=== PATIENT | male | born 1935 | race Hispanic/Latino ===

== ENCOUNTER 2017-02-25 09:54 | Emergency (ER) | payer OTHER ==
[~2017-02-25] VITALS: Ht 170.2 cm; Wt 76.7 kg
--- NOTE | 2017-02-25 11:39 | Diagnostic Imaging Report ---
PROCEDURE:C-SPINE COMPLETE COMPARISON:None. INDICATIONS:FALL, POSTERIOR NECK STIFFNESS FINDINGS: The lateral view is visualized from the skull base to C7. The patient status post anterior cervical discectomy and fusion from C3-C6. The hardware is intact without evidence of lucency surrounding the screws to suggest loosening. There is disc space narrowing and endplate ossific lipping of C6-7 and C7-T1. The vertebral bodies are well-aligned. There are no fractures, lytic or blastic lesions. No prevertebral soft tissue swelling. The C1/C2-odontoid interval is normal. There is mild facet arthropathy at C6-7. There is mild diffuse foraminal narrowing, most severe at C5-6 on the right and C6-7 on the left. The skull base and upper chest are unremarkable. CONCLUSION: C3-C6 ACDF without complication. No acute traumatic pathology. Degenerative changes as described above. Dictated by: Elaine Gómez M.D. on 02/25/2017 at 11:47 Electronically approved by: Elaine Gómez M.D. on 02/25/2017 at 11:47
--- NOTE | 2017-02-25 11:41 | Diagnostic Imaging Report ---
PROCEDURE:X-RAY LEFT SHOULDER, COMPLETE COMPARISON:None. INDICATIONS:FALL, LEFT SHOULDER PAIN FINDINGS: BONES: Normal mineralization of the visualized osseous structures. No acute fracture or dislocation. There are degenerative changes of the a.c. joint. No significant changes on the glenohumeral joint. SOFT TISSUES:Negative. OTHER:A calcified granuloma in the lateral left upper lobe measures 5 mm. The aorta is ectatic. No evidence of pleural thickening, effusion, or pneumothorax CONCLUSION: No acute traumatic pathology. Dictated by: Elaine Gómez M.D. on 02/25/2017 at 11:49 Electronically approved by: Elaine Gómez M.D. on 02/25/2017 at 11:49
[2017-02-25 13:56] VITALS: BP 166/87
== END 2017-02-25 14:07 | disposition home or self-care (01) ==
LOC: ER 09:54
DX: G89.11 Acute pain due to trauma (principal); M54.2 Cervicalgia; M25.512 Pain in left shoulder; W01.0XXA Fall on same level from slipping, tripping and stumbling without subsequent striking against object, initial encounter; Y92.008 Other place in unspecified non-institutional (private) residence as the place of occurrence of the external cause; I10 Essential (primary) hypertension
CPT/HCPCS: 72050; 99282

== ENCOUNTER 2017-04-19 09:44 | Emergency (ER) | payer OTHER ==
[~2017-04-19] VITALS: Ht 170.2 cm; Wt 74.4 kg
--- OUTSIDE RECORDS SUMMARY | 2017-04-19 09:47 | XMS REPORT | Clinical Summary ---
Author Author [facility] Address Unknown Phone Unavailable Care Team Providers Care Loss Prevention And Safety Manager Name Role Phone Reji Yanes MD PCP Allergies No Known Allergies Current Medications Prescription Sig. Disp. 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 Encounters Date Type Specialty Care Team Description 12/02/2016 Office Visit Otolaryngology Aamir Baca MD Vocal fold paralysis, right (Primary Dx); Hoarseness 11/02/2016 Office Visit Otolaryngology Aamir Baca MD Hoarseness (Primary Dx); Vocal fold paralysis, right after 04/18/2016 Social History Tobacco Use Types Packs/Day Years Used Date Never Smoker Alcohol Use Drinks/Week oz/Week Comments No Sex Assigned at Date Recorded Not on file Last Filed Vital Signs Vital Sign Reading Time Taken Blood Pressure 124/86 12/02/2016 10:49 AM CDT Pulse 83 12/02/2016 10:49 AM CDT Temperature - - Respiratory Rate - - Oxygen Saturation - - Inhaled Oxygen - - Concentration Weight 76.7 kg (169 lb) 12/02/2016 10:49 AM CDT Height 170.2 cm (5' 7") 12/02/2016 10:49 AM CDT Body Mass Index 26.47 12/02/2016 10:49 AM CDT Plan of Treatment Health Maintenance Due Date Last Done Comments ZOSTER VACCINE 1995 PNEUMOCOCCAL 2000 POLYSACCHARIDE VACCINE AGE 65 AND OVER PNEUMOCOCCAL-13 2000 INFLUENZA VACCINE 09/21/2016 Results Not on fileafter 04/18/2016 Insurance Payer Benefit Subscriber ID Type Phone Address Plan / Group [employer] xxxxxxxxx [facility] [place] [address]
--- OUTSIDE RECORDS SUMMARY | 2017-04-19 09:47 | XMS REPORT ---
Author Author [facility] Address Unknown Phone Unavailable Care Team Providers Care Passenger Screener Name Role Phone SHAE POND Unavailable Unavailable Problems This patient has no known problems. Allergies, Adverse Reactions, Alerts This patient has no known allergies or adverse reactions. Medications This patient has no known medications. Results Test Description Test Time Test Comments Text Results Atomic Results Result Comments CERVICAL SPINE 4 OR 5 VIEWS [place] [address] Patient Name: ARIAN BLANCAS MR #: [id number] : 1935 Age/Sex: 81/M Req #: [id number] Adm Physician: Ordered by: DEIDRE MERCADO [employer] AND WATCH HANDS DIPPER Report #: [id number] Location: ER Room/Bed: Procedure: [id number] DX/CERVICAL SPINE 4 OR 5 VIEWS Exam Date: 02/25/17 Exam Time: 1040 REPORT STATUS: Signed PROCEDURE: C-SPINE COMPLETE COMPARISON: None. INDICATIONS: FALL, POSTERIOR NECK STIFFNESS FINDINGS: The lateral view is visualized from the skull base to C7. The patient status post anterior cervical discectomy and fusion from C3-C6. The hardware is intact without evidence of lucency surrounding the screws to suggest loosening. There is disc space narrowing and endplate ossific lipping of C6-7 and C7-T1. The vertebral bodies are well-aligned. There are no fractures, lytic or blastic lesions. No prevertebral soft tissue swelling. The C1/C2-odontoid interval is normal. There is mild facet arthropathy at C6-7. There is mild diffuse foraminal narrowing, most severe at C5-6 on the right and C6-7 on the left. The skull base and upper chest are unremarkable. CONCLUSION: C3-C6 ACDF without complication. No acute traumatic pathology. Degenerative changes as described above. Dictated by: Alex Gómez M.D. on 02/25/2017 at 11:47 Electronically approved by: Alex Gómez M.D. on 02/25/2017 at 11:47 Dictated By: ALEX GÓMEZ MD [id number] COPY TO: DEIDRE MERCADO NP SHOULDER LEFT COMPLETE [place] [address] Patient Name: ARIAN BLANCAS MR #: [id number] : 1935 Age/Sex: 81/M Req #: [id number] Adm Physician: Ordered by: DEIDRE MERCADO [employer] DIPPER Report #: [id number] Location: ER Room/Bed: Procedure: [id number] DX/SHOULDER LEFT COMPLETE Exam Date: 02/25/17 Exam Time: 1040 REPORT STATUS: Signed PROCEDURE: X- RAY LEFT SHOULDER, COMPLETE COMPARISON: None. INDICATIONS: FALL , LEFT SHOULDER PAIN FINDINGS: BONES: Normal mineralization of the visualized osseous structures. No acute fracture or dislocation. There are degenerative changes of the a.c. joint. No significant changes on the glenohumeral joint. SOFT TISSUES: Negative. OTHER: A calcified granuloma in the lateral left upper lobe measures 5 mm. The aorta is ectatic. No evidence of pleural thickening, effusion, or pneumothorax CONCLUSION: No acute traumatic pathology. Dictated by: Alex Gómez M.D. on 02/25/2017 at 11:49 Electronically approved by: Alex Gómez M.D. on 02/25/2017 at 11:49 Dictated By: ALEX GÓMEZ MD 1149 COPY TO: DEIDRE MERCADO NP
[2017-04-19] MEDS ORDERED: TRAMADOL HCL 50 MG TAB PO ONE (10:00)
--- NOTE | 2017-04-19 11:16 | Diagnostic Imaging Report ---
PROCEDURE:HIP RIGHT 2-3 VW (+/- PELVIS) INDICATION:Pain COMPARISON:None. FINDINGS: No acute, displaced fracture or dislocation. Femoral heads project appropriately over the acetabulum. Moderate narrowing of the hip joint space with marginal acetabular osteophytosis. Sacroiliac joints are maintained. Degenerative disc changes of the lower lumbar spine. CONCLUSION: No acute osseous abnormality. 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 Dictated by: Mayur Maldonado M.D. on 04/19/2017 at 11:15 Electronically approved by: Mayur Maldonado M.D. on 04/19/2017 at 11:15
== END 2017-04-19 11:37 | disposition home or self-care (01) ==
LOC: ER 09:44
DX: M54.41 Lumbago with sciatica, right side (principal); I10 Essential (primary) hypertension
CPT/HCPCS: 99283

== ENCOUNTER 2018-01-13 09:17 | Inpatient (IN) | payer OTHER ==
[~2018-01-13] VITALS: Ht 167.6 cm; Wt 71.7 kg
--- OUTSIDE RECORDS SUMMARY | 2018-01-13 09:19 | XMS REPORT | Clinical Summary ---
Author Author [facility] Address Unknown Phone Unavailable Care Team Providers Care Manager Administrative Services Name Role Phone Miles Yanes MD PCP Allergies No Known Allergies Medications End Date Status Medication Sig Dispensed Refills Start Date Active lisinopril 0 (PRINIVIL,ZESTRIL) 40 mg 7 tablet Active pravastatin (PRAVACHOL) 0 20 MG tablet 7 Active finasteride (PROSCAR) 5 0 mg tablet 7 Active omeprazole (PriLOSEC) 40 0 MG capsule 7 Active sulfamethoxazole-trimetho 0 prim (BACTRIM SS) 400-80 7 mg per tablet Active Problems Problem Noted Date Hoarseness 11/02/2016 Vocal fold paralysis, 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 Last Filed Vital Signs Not on file Plan of Treatment Health Maintenance Due Date Last Done Comments SHINGRIX VACCINE (1 of 2) 1985 ZOSTER VACCINE 1995 PNEUMOCOCCAL 2000 POLYSACCHARIDE VACCINE AGE 65 AND OVER PNEUMOCOCCAL-13 2000 INFLUENZA VACCINE 09/21/2017 Results Not on fileafter 01/12/2017 Insurance Payer Benefit Subscriber ID Type Phone Address Plan / Group [employer] xxxxxxxxx [facility] Advance Directives Patient has advance care planning documents on file. For more information, ayleen e contact: Harish Capps [address] [place] [address]
--- NOTE | 2018-01-13 10:16 | Diagnostic Imaging Report ---
CT BRAIN WO HISTORY: Slurred speech, gait abnormality COMPARISON: None. TECHNIQUE: Noncontrast axial scans were obtained from skull base to the vertex. Coronal and sagittal reconstructions obtained from the axial data. One or more of the following dose reduction techniques were used: Automated exposure control, adjustment of the mA and/or kV according to patient size, and/or utilization of iterative reconstruction technique. DISCUSSION: Scalp/Skull: Unremarkable. Brain sulci: Mildly prominent. Ventricles: Mild compensatory dilatation. Extra-axial spaces: No masses or fluid collections. Carotid siphon and vertebral artery calcifications are present. Parenchyma: Small focal hypodensity in the left inferolateral thalamus may be due to age indeterminate ischemia. Mild periventricular white matter hypodensities are likely chronic microvascular ischemic changes. 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 Otherwise, no masses, hemorrhage, or large vascular territory acute infarct. Dural sinuses: No abnormal densities. Sellar/Suprasellar region: Intact. Skull base: Intact. Incidental findings: None. IMPRESSION: 1. Small focal hypodensity in the left inferolateral thalamus may be due to age indeterminate ischemia. 2. Otherwise, no acute intracranial abnormalities. 3. Mild supratentorial chronic microvascular ischemic change. Mild generalized cerebral volume loss. 4. 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 Signed by: Dr. Jovanny Waterman M.D. on 01/13/2018 10:12 AM
[2018-01-13 10:24] LABS: BASOPHILS % 0.5 % (0.0-1.0); EOSINOPHILS # (AUTO) 0.2 (0.0-0.4); EOSINOPHILS % 3.1 % (0.0-6.0); HEMATOCRIT 43.4 % (38.2-49.6); LYMPHOCYTES # (AUTO) 1.3 (1.0-3.2); LYMPHOCYTES % 23.7 % (18.0-39.1); MEAN CORPUSCULAR HEMOGLOBIN 30.8 pg (28-32); MEAN CORPUSCULAR HGB CONC 34.6 g/dL (31-35); MEAN CORPUSCULAR VOLUME 89.1 fL (81-99); MONOCYTES # (AUTO) 0.4 (0.2-0.8); MONOCYTES % 7.2 % (4.4-11.3); NEUTROPHILS # (AUTO) 3.6 (2.1-6.9); NEUTROPHILS % 65.3 % (38.7-80.0); PLATELET COUNT 123 x10e3/uL (140-360); RED BLOOD COUNT 4.87 x10e6/uL (4.3-5.7); RED CELL DISTRIBUTION WIDTH 12.8 % (11.7-14.4)
[2018-01-13 10:39] LABS: PROTHROMBIN TIME 14.1 seconds (11.9-14.5)
[2018-01-13 10:40] LABS: PARTIAL THROMBOPLASTIN TIME 33.8 seconds (23.8-35.5)
[2018-01-13 10:49] LABS: ALANINE AMINOTRANSFERASE 24 IU/L (0-55); ALBUMIN/GLOBULIN RATIO 1.1 (0.8-2.0); ALKALINE PHOSPHATASE 54 IU/L (40-150); ANION GAP 11.5 mmol/L (8-16); BLOOD UREA NITROGEN 10 mg/dL (7-26); BUN/CREATININE RATIO 14 (6-25); CALCIUM 9.7 mg/dL (8.4-10.2); CARBON DIOXIDE 25 mmol/L (22-29); CHLORIDE 108 mmol/L (98-107); CREATINE KINASE 355 IU/L (30-200); CREATININE, SERUM 0.73 mg/dL (0.72-1.25); EST GLOMERULAR FILTRATION RATE > 60 ML/MIN (60-); GLUCOSE 108 mg/dL (74-118); POTASSIUM 3.5 mmol/L (3.5-5.1); SODIUM 141 mmol/L (136-145)
[2018-01-13 11:12] LABS: CLARITY,URINE HAZY (CLEAR); COLOR,URINE YELLOW (YELLOW); LEUKOCYTE ESTERASE ,URINE NEGATIVE (NEGATIVE); NITRITE,URINE NEGATIVE (NEGATIVE); PROTEIN,URINE DIPSTICK NEGATIVE (NEGATIVE)
[2018-01-13 11:13] LABS: BILIRUBIN,URINE NEGATIVE (NEGATIVE); KETONES,URINE NEGATIVE (NEGATIVE); URINE UROBILINOGEN 0.2 mg/dL (0.2 - 1)
[2018-01-13] MEDS ORDERED: ASPIRIN 81 MG CHEW TAB PO ONE (11:15)
[2018-01-13] MEDS ORDERED: FAMOTIDINE 20 MG TAB PO SCH (11:15)
[2018-01-13 11:16] LABS: BACTERIA,URINE FEW /HPF; EPITHELIAL CELLS,URINE FEW /LPF; WBC,URINE (MAN) 0-5 /HPF (0-5)
--- OUTSIDE RECORDS SUMMARY | 2018-01-13 11:43 | XMS REPORT | Clinical Summary ---
Author Author [facility] Address Unknown Phone Unavailable Care Team Providers Care Communication Engineer Name Role Phone Miles Yanes MD PCP [...] Plan / Group [employer] xxxxxxxxx [facility] Advance Directives Patient has advance care planning documents on file. For more information, ayleen e contact: Harish Capps [address] [place] [address]
[2018-01-13] MEDS ORDERED: GADOBENATE DIMEGLUMINE 1 ML IV ONE (12:12)
[2018-01-13] MEDS ORDERED: SODIUM CHLORIDE 0.9% 50ML 50 ML ONE (12:12)
--- NOTE | 2018-01-13 12:13 | Diagnostic Imaging Report ---
EXAMINATION: CHEST SINGLE (PORTABLE) INDICATION: Chest pain. COMPARISON: None FINDINGS: TUBES and LINES: None. LUNGS: Lungs are well inflated. Lungs are clear. There is no evidence of pneumonia or pulmonary edema. PLEURA: No pleural effusion or pneumothorax. HEART AND MEDIASTINUM: The thoracic aorta is tortuous and folded. The cardiac silhouette is normal in size. BONES AND SOFT TISSUES: No acute osseous lesion. Lower cervical fusion hardware. UPPER ABDOMEN: No free air under the diaphragm. IMPRESSION: No acute thoracic abnormality. Signed by: Dr. Joyce Lu M.D. on 01/13/2018 12:10 PM
[2018-01-13] MEDS ORDERED: AMLODIPINE BESYLATE 10 MG TAB PO SCH (13:45)
[2018-01-13] MEDS ORDERED: CLONIDINE HCL 0.1 MG TAB PO PRN (13:45)
[2018-01-13 13:49] VITALS: BP 164/81
[2018-01-13 13:55] VITALS: BP 164/81
--- NOTE | 2018-01-13 14:07 | Diagnostic Imaging Report ---
MRI BRAIN WO HISTORY: Slurred speech, on balance COMPARISON: Head CT from earlier today TECHNIQUE: Sagittal T2, axial T2, axial T1, axial T2/FLAIR, axial gradient echo, axial GRE, coronal T2/FLAIR MR images of the brain were obtained without contrast. DISCUSSION: Scalp/bone marrow: Unremarkable. Brain sulci: Mildly prominent. Ventricles: Mild compensatory dilatation. Extra-axial spaces: No masses or fluid collections. Parenchyma: A focal area of diffusion restriction (bright on DWI, dark to isointense on ADC) is seen along the left inferolateral thalamus. This is compatible with acute ischemia. No other diffusion restricting abnormalities are seen. Scattered T2/FLAIR hyperintense foci throughout the supratentorial white matter are likely chronic microvascular ischemic changes. 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 Otherwise, no mass or hemorrhage. Vessels: Normal flow voids in major arteries and veins. Sellar/Suprasellar region: No abnormalities. Craniocervical junction: ACDF changes are partially visualized. Incidental findings: Nonspecific scattered T2 hyperintense paranasal sinus mucosal thickening is most prominent in the right Sinus. IMPRESSION: 1. Focal acute ischemia along the left inferolateral thalamus. 2. Mild supratentorial chronic microvascular ischemic change. Mild generalized cerebral volume loss. 3. 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 Signed by: Dr. Jovanny Waterman M.D. on 01/13/2018 2:04 PM
--- NOTE | 2018-01-13 14:45 | Diagnostic Imaging Report ---
MRA NECK WOW, MRA HEAD WO HISTORY: Slurred speech, on balance COMPARISON: Concurrent brain MRI, head CT from earlier today TECHNIQUE: Axial noncontrast 2D cervical, coronal contrast enhanced cervical, and noncontrast axial 3D intracranial [id number] MRA images were obtained without contrast. Maximum intensity projection and coronal/sagittal reformatted images were created. Any cervical carotid stenoses will be measured relative to the patent hughes vessel distal to the stenosis. 15 mL of MultiHance intravenous contrast were administered. FINDINGS: CERVICAL MRA: Focal susceptibility artifacts along the upper right visceral space and from the ACDF obscure some details. Right Carotid: No gross flow abnormalities. Left Carotid: No flow abnormalities. Right vertebral artery: No flow abnormalities. Left vertebral artery: No flow abnormalities. INTRACRANIAL MRA: Carotid arteries: No flow abnormalities in the intracranial internal carotid arteries. Normal A1 and M1 segments. Vertebrobasilar Circulation: Right vertebral artery: No flow abnormalities. Left vertebral artery: No flow abnormalities. Basilar artery: No flow abnormalities. Posterior cerebral arteries: No flow abnormalities. Normal Variants: ACom: Patent. PComs: Not visualized. Vertebral arteries: Left slightly dominant IMPRESSION: No cervical or intracranial MRA abnormalities. Signed by: Dr. Jovanny Waterman M.D. on 01/13/2018 2:41 PM
--- NOTE | 2018-01-13 14:45 | Diagnostic Imaging Report ---
MRA NECK WOW, MRA HEAD WO HISTORY: Slurred speech, on balance COMPARISON: Concurrent brain MRI, head CT from earlier today TECHNIQUE: Axial noncontrast 2D cervical, coronal contrast enhanced cervical, and noncontrast axial 3D intracranial [id number] MRA images were obtained without contrast. Maximum intensity projection and coronal/sagittal reformatted images were created. Any cervical carotid stenoses will be measured relative to the patent [place] vessel distal to the stenosis. 15 mL of MultiHance intravenous contrast were administered. FINDINGS: CERVICAL MRA: Focal susceptibility artifacts along the upper right visceral space and from the ACDF obscure some details. Right Carotid: No gross flow abnormalities. Left Carotid: No flow abnormalities. Right vertebral artery: No flow abnormalities. Left vertebral artery: No flow abnormalities. INTRACRANIAL MRA: Carotid arteries: No flow abnormalities in the intracranial internal carotid arteries. Normal A1 and M1 segments. Vertebrobasilar Circulation: Right vertebral artery: No flow abnormalities. Left vertebral artery: No flow abnormalities. Basilar artery: No flow abnormalities. Posterior cerebral arteries: No flow abnormalities. Normal Variants: ACom: Patent. PComs: Not visualized. Vertebral arteries: Left slightly dominant IMPRESSION: No cervical or intracranial MRA abnormalities. Signed by: Dr. Jovanny Waterman M.D. on 01/13/2018 2:41 PM
[2018-01-13] MEDS ORDERED: LISINOPRIL10 MG PO (15:33)
[2018-01-13] MEDS ORDERED: OMEPRAZOLE40 MG (15:33)
[2018-01-13] MEDS ORDERED: PRAVASTATIN SOD20 MG (15:33)
[2018-01-13] MEDS ORDERED: FINASTERIDE5 MG PO (15:33)
[2018-01-13] MEDS ORDERED: LATANOPROST2.5 ML OU (15:33)
[2018-01-13 16:00] VITALS: BP 162/89
[2018-01-13] MEDS ORDERED: PNEUMOCOCCAL VACCINE POLYVALENT 23 MCG/0.5 ML VIAL IM SCH (16:15)
[2018-01-13] MEDS ORDERED: INFLUENZA VIRUS VAC SPLIT INJ 0.5 ML SYR IM SCH (16:15)
[2018-01-13] MEDS ORDERED: ENOXAPARIN SOD INJ 40 MG/0.4 ML SYR SC SCH (17:00)
--- NOTE | 2018-01-13 17:11 | Consultation ---
DATE OF CONSULTATION: January 13, 2018 NEUROLOGY CONSULTATION HISTORY OF PRESENT ILLNESS: Mr. Do is an 82-year-old, [id number] man with past medical history significant for hypertension, hyperlipidemia, and a prior stroke in 2008 without residual deficits, admitted to [facility] on January 13, 2018, with symptoms suspicious for a stroke. On the evening of January 12, 2018, the patient noted the abrupt onset of dysarthria, expressive aphasia, possible weakness or incoordination of the right hand, gait impairment, and dizziness, which is further described as lightheadedness. Mr. Do does not report a visual field cut or other disturbance, numbness or tingling, or confusion. When the patient's symptoms persisted into the next day (the day of admission), Mr. Do proceeded to the Emergency Center at [facility] for further evaluation of his symptoms. Upon arrival in the Emergency Center, the patient was afebrile with a blood pressure 191/111 mmHg and pulse of 80 beats per minute. His neurological examination was documented as demonstrating dysarthria and an abnormal finger-nose test. While in the Emergency Center, a CT of the brain without contrast was performed. This study revealed age-indeterminate ischemia in the left inferolateral thalamus. Therefore, Mr. Do was admitted to [facility] as an inpatient for further evaluation and treatment. As stated above, the patient does report experiencing a prior stroke in 2008. He has no residual deficits from the stroke. At present, Mr. Do is not on daily antiplatelet or anticoagulant medication. REVIEW OF SYSTEMS: Blurred vision, dysarthria, expressive aphasia, weakness or incoordination of the right hand and arm, impairment of balance and gait, dizziness which is further described as lightheadedness. Otherwise, a 12-point review of systems is negative. PAST MEDICAL HISTORY: Hypertension, hyperlipidemia, gastroesophageal reflux disease, prior stroke in 2008 without residual deficits, benign prostatic hypertrophy. PAST SURGICAL HISTORY: Cervical spine surgery, appendectomy, procedure on the urethra. PAST HOSPITALIZATIONS: Surgeries/procedures as listed, stroke. FAMILY MEDICAL HISTORY: The patient's paternal and maternal grandparents are . Their medical histories are unknown. The patient's father is from alcoholic cirrhosis. Mr. Do's mother is from GI cancer. The patient had 3 brothers, one of whom is from alcoholic cirrhosis. The second brother is alive but has heart disease. The 3rd brother is alive and is healthy. Mr. Do has 3 children, 1 son and 2 daughters, all of whom are living. The son has diabetes mellitus. Both daughters are healthy. SOCIAL HISTORY: Mr. Do is . He is retired. The patient reports a remote history of tobacco use, but quit smoking cigarettes "a long time ago." Mr. Do quit drinking alcohol 40 years ago. He does not report current or prior recreational drug use. HOME MEDICATIONS 1. Lisinopril 40 mg by mouth daily. 2. Pravastatin 20 mg by mouth at bedtime daily. 3. Omeprazole 40 mg by mouth daily. 4. Finasteride 5 mg by mouth daily. 5. Latanoprost 2.5 mL 1 drop each eye at bedtime. ALLERGIES: NO KNOWN DRUG ALLERGIES. NO KNOWN FOOD ALLERGIES. NO KNOWN ALLERGY TO LATEX. NO KNOWN ALLERGIES TO IODINE OR OTHER CONTRAST MATERIALS. PHYSICAL EXAMINATION VITAL SIGNS: Height 67 inches, weight 163 pounds. BMI 25.5 kg per meter squared. Blood pressure 157/97 mmHg. Pulse 68 beats per minute. Respiratory rate 18 breaths per minute. Oxygen saturation 97% on room air. GENERAL: Patient is awake and alert, does not appear distressed. HEENT: Normocephalic and atraumatic. Pupils are equal, round, and reactive to light. Moist mucous membranes. NECK: Supple. No appreciable thyromegaly. No appreciable carotid bruits. CARDIOVASCULAR: S1 and S2, regular rate and rhythm. No murmurs, rubs, or gallops. RESPIRATORY: Clear to auscultation bilaterally. No wheezes, rhonchi or rales. EXTREMITIES: The skin is warm and dry. No clubbing, cyanosis, or edema. The posterior tibial and dorsalis pedis pulses are 1+ and symmetric. SKIN: No rashes or lesions. NEUROLOGIC EXAMINATION MEMORY/ATTENTION: The patient is awake and alert. Oriented to person, place, time, and situation. CRANIAL NERVES: Cranial nerve I: Not tested. Cranial nerves II, III, IV, and : Pupils are equal and round, react briskly to light (from3 mm to 2 mm). Extraocular movements intact. No nystagmus. Cranial nerve V: Sensation to light touch and pinprick is intact in the bilateral V1 through V3 distributions. Strength of the temporalis and masseter muscles is within normal limits. Cranial nerve VII: The face is symmetric as are all facial movements. Strength is within normal limits. Cranial nerve VIII: Hearing is intact to finger rub bilaterally. Cranial nerves IX and X: The soft palate elevates equally and symmetrically. Cranial nerve XI: Normal strength of the bilateral sternocleidomastoid and trapezius muscles. Cranial nerve XII: The tongue protrudes midline and moves symmetrically from side to side. STRENGTH: Bulk is normal. Strength is 5/5 in the bilateral deltoids, biceps, triceps, wrist flexors and extensors, finger flexors and extensors, intrinsic hand muscles, hip flexors, knee flexors and extensors, ankle dorsiflexion and plantar flexion, and intrinsic foot muscles. Tone is normal. DTRs: Deep tendon reflexes are 2+ and symmetric at the triceps, biceps, brachioradialis, and patellas. Deep tendon reflexes are absent and symmetric at the Achilles. Plantar responses are flexor bilaterally. SENSATION: Sensation is intact to light touch and pinprick in both arms and both legs. CEREBELLAR: There is dysmetria with cbcvbc-dkcg-zolmgc movements of the right arm, more than is expected for the degree of paresis. Cncuic-lndc-xrxawh movements are intact in the left arm. Heel-dodd movements are intact in both legs. GAIT: Deferred. SPEECH: Spontaneous speech is mildly dysarthric with mild expressive aphasia. Repetition is intact. INVOLUNTARY MOVEMENTS: None. PRONATOR DRIFT: Subtle in the right arm. LABORATORY DATA: The patient's comprehensive metabolic panel is significant for an elevated chloride of 108, an elevated creatine kinase of 355, and a mildly elevated globulin of 3.6. Other than the elevated creatine kinase, cardiac enzymes are negative times 1. The CBC with differential and platelets reveals a white blood cell count of 5.53 with a normal differential. The hemoglobin and hematocrit are 15.0 and 43.4, respectively. Platelet count is 123. PT, PTT, and INR are within normal limits. A urinalysis reveals a specific gravity of 1.005, with 1+ blood, and 6 to 10 red blood cells. DIAGNOSTIC STUDIES 1. Electrocardiogram, 01/13/2018: Sinus rhythm at 67 beats per minute with occasional premature ventricular complexes. 2. CT of the brain without contrast, 01/13/2018: There is a small, age-indeterminant, ischemic infarct in the left inferolateral thalamus. There is a remote infarct in the right striatocapsular region. There is diffuse cerebral atrophy with compensatory dilatation of the ventricles, appropriate for age. There are findings compatible with mild to moderate chronic small vessel ischemic disease. 3. Chest x-ray, 01/13/2018: No acute thoracic abnormality. 4. MRI of the brain without contrast, 01/13/2018: Acute ischemic stroke in the left inferolateral thalamus. Remote lacunar stroke in the right striatocapsular region. There is diffuse cerebral atrophy with compensatory dilatation of the ventricles, expected for the patient's age. There are scattered nonspecific T2/FLAIR hyperintense foci throughout the supratentorial white matter compatible with mild chronic small vessel ischemic disease. 5. MRA of the brain and neck without contrast, 01/13/2018: There is no significant stenosis in either the intra- or extracranial blood vessels. 6. Echocardiogram, 01/13/2018: Ejection fraction 60%. Concentric left ventricular hypertrophy. Trace mitral and tricuspid regurgitation. ASSESSMENT AND PLAN: Mr. Do is an 82-year-old right-hand dominant man with past medical history as detailed, admitted to [facility] on January 13, 2018, with an acute ischemic stroke of the left inferolateral thalamus. On neurological examination, the patient has dysarthric speech with mild expressive aphasia, subtle pronator drift in the right arm, and dysmetria with hhfdhh-gtkd-xcqtav movements of the right arm, more than expected for the degree of paresis. Patient's laboratory data and other diagnostic studies have been reviewed and are documented above. RECOMMENDATIONS 1. A lipid panel and hemoglobin A1c will be ordered. 2. Treatment with aspirin 325 mg by mouth daily will be continued for stroke prophylaxis. 3. Allow permissive hypertension for 24 to 48 hours following a stroke. The blood pressures may be gradually normalized beginning on Sunday, January 14, 2018. 4. The patient's goal total cholesterol is less than 200 with an LDL of less than 70. Follow up the results of the lipid panel. Continue treatment with simvastatin. 5. The patient's goal hemoglobin A1c is less than 7.0. Follow up the results of the hemoglobin A1c. Tight glycemic control is recommended while the patient is in the hospital. 6. Speech and physical therapy evaluations have been ordered. 7. GI prophylaxis with Pepcid 20 mg by mouth twice daily with meals. DVT prophylaxis with Lovenox 40 mg subcutaneously daily. 8. Defer treatment of the remaining medical comorbidities to the primary and other services following the patient. Thank you for this consultation. I will continue to follow the patient while he remains in the hospital. Time spent: 70 minutes. Job#: [id number] JONNY CLAROS
[2018-01-13 17:57] LABS: CREATINE KINASE MB 3.7 ng/mL (0-5.0)
[2018-01-13 20:00] VITALS: BP_SYST 140; BP_DIAS 80; BP_DIAS 82
[2018-01-13] MEDS ORDERED: SIMVASTATIN 40 MG TAB PO SCH (21:00)
[2018-01-13] MEDS ORDERED: LATANOPROST(OPTH) 2.5 ML BTL OU SCH (21:00)
[2018-01-14] VITALS: BP 133/74
[2018-01-14 01:20] LABS: CREATINE KINASE MB 2.7 ng/mL (0-5.0)
[2018-01-14 04:00] VITALS: BP 123/72
[2018-01-14 06:06] LABS: BASOPHILS % 0.4 % (0.0-1.0); EOSINOPHILS # (AUTO) 0.3 (0.0-0.4); EOSINOPHILS % 3.9 % (0.0-6.0); HEMATOCRIT 41.6 % (38.2-49.6); HEMOGLOBIN 14.4 g/dL (14.0-18.0); LYMPHOCYTES # (AUTO) 1.6 (1.0-3.2); LYMPHOCYTES % 23.8 % (18.0-39.1); MEAN CORPUSCULAR HGB CONC 34.6 g/dL (31-35); MEAN CORPUSCULAR VOLUME 89.7 fL (81-99); MONOCYTES # (AUTO) 0.6 (0.2-0.8); MONOCYTES % 9.3 % (4.4-11.3); NEUTROPHILS # (AUTO) 4.3 (2.1-6.9); NEUTROPHILS % 62.2 % (38.7-80.0); PLATELET COUNT 112 x10e3/uL (140-360); RED BLOOD COUNT 4.64 x10e6/uL (4.3-5.7)
[2018-01-14 06:24] LABS: ANION GAP 10.7 mmol/L (8-16); BLOOD UREA NITROGEN 12 mg/dL (7-26); BUN/CREATININE RATIO 16 (6-25); CALCIUM 9.4 mg/dL (8.4-10.2); CARBON DIOXIDE 26 mmol/L (22-29); CHLORIDE 105 mmol/L (98-107); CHOL/HDL RATIO 4.7 (3.9-4.7); CHOLESTEROL 177 MD/DL (0-199); CREATININE, SERUM 0.74 mg/dL (0.72-1.25); EST GLOMERULAR FILTRATION RATE > 60 ML/MIN (60-); GLUCOSE 106 mg/dL (74-118); HDL CHOLESTEROL 38 MG/DL (40-60); LDL CHOLESTEROL 88 MG/DL (60-130); POTASSIUM 3.7 mmol/L (3.5-5.1); SODIUM 138 mmol/L (136-145); TRIGLYCERIDES 255 MG/DL (0-149)
[2018-01-14 06:47] LABS: THYROID STIMULATING HORMONE 2.234 uIU/mL (0.350-4.940)
[2018-01-14] MEDS ORDERED: ASPIRIN ENTERI325 MG PO (07:38)
[2018-01-14] MEDS ORDERED: CATAPRES0.1 MG PO (07:38)
[2018-01-14] MEDS ORDERED: SIMVASTATIN40 MG PO (07:38)
[2018-01-14] MEDS ORDERED: AMLODIPINE BESY10 MG PO (07:38)
[2018-01-14 08:00] VITALS: BP 153/84
[2018-01-14] MEDS ORDERED: PANTOPRAZOLE SOD 40 MG TABEC PO SCH (09:00)
[2018-01-14] MEDS ORDERED: ACETAMINOPHEN/CODEINE 300MG - 30MG TAB PO PRN (09:00)
[2018-01-14] MEDS ORDERED: FINASTERIDE 5 MG TAB PO SCH (09:00)
[2018-01-14] MEDS ORDERED: ASPIRIN 325 MG TAB EC PO SCH (09:00)
[2018-01-14] MEDS ORDERED: LISINOPRIL 20 MG TAB PO SCH (10:00)
[2018-01-14 12:00] VITALS: BP 149/98
--- NOTE | 2018-01-15 04:00 | Discharge Summary ---
ADMISSION DIAGNOSES 1. Chest pain, rule out acute coronary syndrome. 2. Acute cerebrovascular accident. 3. Hypertension. DISCHARGE DIAGNOSES 1. Chest pain, rule out acute coronary syndrome. 2. Acute cerebrovascular accident. 3. Hypertension. 4. Glaucoma. 5. Benign prostatic hypertrophy. 6. Gastroesophageal reflux disease. SURGICAL HISTORY: Neck surgery. FAMILY HISTORY: Noncontributory. SOCIAL HISTORY: Noncontributory. HOSPITAL COURSE: An 82-year-old male with 24 hours of slurred speech, right hand weakness, and ambulatory dysfunction. On admission, patient started on aspirin and statin. Serial cardiac enzymes were negative x3. CT of the brain showed small focal hypodensity in the left inferolateral thalamus, old right striatocapsular lacunar infarct. MRI of the neck and head showed no cervical or intracranial MRA abnormalities. Chest x-ray showed no acute thoracic abnormality. MRI of the brain showed focal acute ischemia along the left inferolateral thalamus, mild supratentorial chronic microvascular ischemic changes. Neurology was consulted who has cleared the patient for discharge on aspirin, simvastatin, and lisinopril. The patient was instructed to keep a log of his blood pressure readings and follow up with primary care. He was cleared for speech therapy and physical therapy recommended a walker. Case management was consulted for any physical therapy recommendations. Patient was discharged home with family. Patient understands discharge instructions and agrees to plan. Vital signs stable. Patient afebrile. Dictated by: Jacy Mckeon NP Job#: [id number] LPA
== END 2018-01-14 13:45 | disposition home or self-care (01) | DRG 66 ==
LOC: ER 09:17 → ERHOLD 11:39 → MED/SURG 12:41 → OBSVTOIN 01-14 09:14
PROVIDERS: ADMIT Internal Medicine; ATTEND Internal Medicine
DX: I63.89 Other cerebral infarction (principal); R07.9 Chest pain, unspecified; I10 Essential (primary) hypertension; H40.9 Unspecified glaucoma; N40.0 Benign prostatic hyperplasia without lower urinary tract symptoms; K21.9 Gastro-esophageal reflux disease without esophagitis; R42 Dizziness and giddiness; E78.5 Hyperlipidemia, unspecified; Z86.73 Personal history of transient ischemic attack (TIA), and cerebral infarction without residual deficits; R47.1 Dysarthria and anarthria; R47.01 Aphasia; R27.8 Other lack of coordination; G83.21 Monoplegia of upper limb affecting right dominant side
CPT/HCPCS: 36415; 70450; 70544; 70549; 70551; 71045; 80048; 80053; 80061; 81001; 82550; 82553; 83036; 84439; 84443; 84484; 85025; 85610; 85730; 90732; 92523; 93005; 93306; 99284; G0009; G0378; J1650

== ENCOUNTER 2018-09-26 10:31 | Emergency (ER) | payer MEDICARE, OTHER ==
[~2018-09-26] VITALS: Ht 167.6 cm; Wt 71.7 kg
[~2018-09-26 10:31] MED LIST: AMLODIPINE BESY10 MG PO; ASPIRIN ENTERI325 MG PO; CATAPRES0.1 MG PO; FINASTERIDE5 MG PO; LATANOPROST2.5 ML OU; LISINOPRIL10 MG PO; OMEPRAZOLE40 MG; PRAVASTATIN SOD20 MG; SIMVASTATIN40 MG PO
--- OUTSIDE RECORDS SUMMARY | 2018-09-26 10:34 | XMS REPORT | Clinical Summary ---
Author Author [facility] Organization [facility] Address Unknown Phone Unavailable Care Team Providers Care Reconditioner Name Role Phone Miles Yanes MD PCP [...] Health Maintenance Due Date Last Done Comments SHINGLES VACCINES (#1) 1985 65+ PNEUMOCOCCAL VACCINE 2000 (1 of 2 - PCV13) INFLUENZA VACCINE 09/21/2018 Results Not on fileafter 09/25/2017 Insurance Type Payer Benefit Subscriber ID Effective Phone Address Plan / Dates Group HMO [employer] TEX[employer] xxxxxxxxx 2016-P BRITANY faulkner Advance Directives Patient has advance care planning documents on file. For more information, ayleen e contact: Harish Capps [address] [place] [address]
[2018-09-26] MEDS ORDERED: SODIUM CHLORIDE 0.9% 1000ML 1,000 ML IV STA (10:55)
[2018-09-26] MEDS ORDERED: ONDANSETRON HCL INJ 2MG/ML 2ML 2 MG/ML VIAL IV NR (11:00)
[2018-09-26] MEDS ORDERED: DICYCLOMINE HCL 10 MG CAP PO SCH (11:15)
[2018-09-26 12:04] LABS: BASOPHILS % 0.2 % (0.0-1.0); EOSINOPHILS # (AUTO) 0.1 (0.0-0.4); EOSINOPHILS % 2.5 % (0.0-6.0); HEMATOCRIT 41.2 % (38.2-49.6); LYMPHOCYTES # (AUTO) 0.7 (1.0-3.2); LYMPHOCYTES % 16.6 % (18.0-39.1); MEAN CORPUSCULAR HEMOGLOBIN 30.8 pg (28-32); MEAN CORPUSCULAR VOLUME 90.7 fL (81-99); MONOCYTES # (AUTO) 0.4 (0.2-0.8); NEUTROPHILS # (AUTO) 3.2 (2.1-6.9); NEUTROPHILS % 72.5 % (38.7-80.0); PLATELET COUNT 114 x10e3/uL (140-360); RED BLOOD COUNT 4.54 x10e6/uL (4.3-5.7); RED CELL DISTRIBUTION WIDTH 13.2 % (11.7-14.4)
[2018-09-26 12:05] LABS: BILIRUBIN,URINE NEGATIVE (NEGATIVE); CLARITY,URINE CLEAR (CLEAR); COLOR,URINE YELLOW (YELLOW); KETONES,URINE TRACE (NEGATIVE); LEUKOCYTE ESTERASE ,URINE NEGATIVE (NEGATIVE); NITRITE,URINE NEGATIVE (NEGATIVE); PROTEIN,URINE DIPSTICK NEGATIVE (NEGATIVE); URINE UROBILINOGEN 0.2 mg/dL (0.2 - 1)
[2018-09-26 12:15] LABS: INR 1.1; PROTHROMBIN TIME 14.7 seconds (11.9-14.5)
[2018-09-26 12:16] LABS: PARTIAL THROMBOPLASTIN TIME 35.6 seconds (23.8-35.5)
[2018-09-26 12:29] LABS: ALANINE AMINOTRANSFERASE 24 IU/L (0-55); ALBUMIN 3.8 g/dL (3.5-5.0); ALBUMIN/GLOBULIN RATIO 1.1 (0.8-2.0); ALKALINE PHOSPHATASE 50 IU/L (40-150); AMYLASE 57 U/L (25-125); ANION GAP 14.7 mmol/L (8-16); BLOOD UREA NITROGEN 10 mg/dL (7-26); BUN/CREATININE RATIO 13 (6-25); CALCIUM 9.2 mg/dL (8.4-10.2); CARBON DIOXIDE 22 mmol/L (22-29); CHLORIDE 107 mmol/L (98-107); CREATINE KINASE 148 IU/L (30-200); CREATININE, SERUM 0.78 mg/dL (0.72-1.25); EST GLOMERULAR FILTRATION RATE > 60 ML/MIN (60-); GLUCOSE 87 mg/dL (74-118); LIPASE 27 U/L (8-78); POTASSIUM 3.7 mmol/L (3.5-5.1); SODIUM 140 mmol/L (136-145)
[2018-09-26 12:30] LABS: AMORPHOUS SEDIMENT,URINE MODERATE (FEW); BACTERIA,URINE MANY /HPF; EPITHELIAL CELLS,URINE MODERATE /LPF; RBC,URINE 0-5 /HPF (0-5)
--- NOTE | 2018-09-26 12:49 | NUR ---
PATIENT TO ROOM 7
--- NOTE | 2018-09-26 13:29 | Diagnostic Imaging Report ---
EXAMINATION: CHEST 2 VIEWS INDICATION: Weakness COMPARISON: Chest radiograph of 01/13/2018 FINDINGS: LINES/TUBES:None LUNGS:The lungs are well-inflated. No focal consolidation or pulmonary edema. PLEURA:No pleural effusion or pneumothorax. MEDIASTINUM:The cardiomediastinal silhouette appears normal in size and shape. Atherosclerotic calcifications of the tortuous thoracic aorta. BONES/SOFT TISSUES:No acute osseous injury. ABDOMEN:No free air under the diaphragm. IMPRESSION: No focal pneumonia or pulmonary edema. Signed by: Dayana Rudolph MD on 09/26/2018 1:26 PM
== END 2018-09-26 15:02 | disposition home or self-care (01) ==
LOC: ER 10:31
DX: R11.14 Bilious vomiting (principal); R11.2 Nausea with vomiting, unspecified; R63.0 Anorexia; I10 Essential (primary) hypertension; K21.9 Gastro-esophageal reflux disease without esophagitis; E78.5 Hyperlipidemia, unspecified; Z86.73 Personal history of transient ischemic attack (TIA), and cerebral infarction without residual deficits; R10.84 Generalized abdominal pain; R19.7 Diarrhea, unspecified
CPT/HCPCS: 36415; 71046; 80053; 81001; 82150; 82550; 82553; 83690; 84484; 85025; 85610; 85730; 87086; 87400; 93005; 99284; J2405; J7030

== ENCOUNTER 2018-09-27 08:44 | Emergency (ER) | payer OTHER ==
[~2018-09-27] VITALS: Ht 167.6 cm; Wt 71.7 kg
--- OUTSIDE RECORDS SUMMARY | 2018-09-27 08:46 | XMS REPORT | Clinical Summary ---
Author Author [facility] Organization [facility] Address Unknown Phone Unavailable Care Team Providers Care Associate Financial Planner Name Role Phone Miles Yanes MD PCP [...] INFLUENZA VACCINE 09/21/2018 Results Not on fileafter 09/26/2017 Insurance Type Payer Benefit Subscriber ID Effective Phone Address Plan / Dates Group HMO [employer] xxxxxxxxx 2016-P BRITANY faulkner Advance Directives Patient has advance care planning documents on file. For more information, ayleen e contact: Harish Capps [address] [place] [address]
[2018-09-27] MEDS ORDERED: SODIUM CHLORIDE 0.9% 1000ML 1,000 ML IV STA ×2 (09:09)
[2018-09-27 09:38] LABS: BASOPHILS % 0.3 % (0.0-1.0); BILIRUBIN,URINE NEGATIVE (NEGATIVE); CLARITY,URINE SL CLOUDY (CLEAR); COLOR,URINE YELLOW (YELLOW); EOSINOPHILS # (AUTO) 0.2 (0.0-0.4); EOSINOPHILS % 4.1 % (0.0-6.0); HEMOGLOBIN 13.2 g/dL (14.0-18.0); KETONES,URINE NEGATIVE (NEGATIVE); LEUKOCYTE ESTERASE ,URINE NEGATIVE (NEGATIVE); LYMPHOCYTES # (AUTO) 1.1 (1.0-3.2); LYMPHOCYTES % 18.6 % (18.0-39.1); MEAN CORPUSCULAR HEMOGLOBIN 30.7 pg (28-32); MEAN CORPUSCULAR HGB CONC 33.8 g/dL (31-35); MEAN CORPUSCULAR VOLUME 90.7 fL (81-99); MONOCYTES # (AUTO) 0.7 (0.2-0.8); MONOCYTES % 11.4 % (4.4-11.3); NEUTROPHILS # (AUTO) 3.8 (2.1-6.9); NEUTROPHILS % 65.1 % (38.7-80.0); NITRITE,URINE NEGATIVE (NEGATIVE); PLATELET COUNT 115 x10e3/uL (140-360); PROTEIN,URINE DIPSTICK NEGATIVE (NEGATIVE); RED CELL DISTRIBUTION WIDTH 13.2 % (11.7-14.4); URINE UROBILINOGEN 0.2 mg/dL (0.2 - 1)
[2018-09-27 09:51] LABS: ALANINE AMINOTRANSFERASE 31 IU/L (0-55); ALBUMIN 3.5 g/dL (3.5-5.0); ALBUMIN/GLOBULIN RATIO 1.1 (0.8-2.0); ALKALINE PHOSPHATASE 44 IU/L (40-150); ANION GAP 12.7 mmol/L (8-16); BLOOD UREA NITROGEN 11 mg/dL (7-26); BUN/CREATININE RATIO 14 (6-25); CALCIUM 8.9 mg/dL (8.4-10.2); CARBON DIOXIDE 20 mmol/L (22-29); CHLORIDE 111 mmol/L (98-107); CREATININE, SERUM 0.76 mg/dL (0.72-1.25); EST GLOMERULAR FILTRATION RATE > 60 ML/MIN (60-); GLUCOSE 89 mg/dL (74-118); POTASSIUM 3.7 mmol/L (3.5-5.1); SODIUM 140 mmol/L (136-145)
[2018-09-27 09:54] LABS: BACTERIA,URINE MODERATE /HPF; EPITHELIAL CELLS,URINE MODERATE /LPF; MUCUS,URINE MODERATE (RARE); RBC,URINE 0-5 /HPF (0-5)
[2018-09-27 09:55] LABS: HYALINE CASTS 0-1 (0-1)
[2018-09-27 09:58] LABS: BAND NEUTROPHILS % (MANUAL) 7 %; EOSINOPHILS % (MANUAL) 1 % (0-7); LYMPHOCYTES % (MANUAL) 12 % (19-48); MAGNESIUM 2.2 MG/DL (1.3-2.1); MONOCYTES % (MANUAL) 7 % (3.4-9.0); NEUTROPHILS % (MANUAL) 73 % (40-74)
[2018-09-27 09:59] LABS: PLATELET ESTIMATE SLIGHTLY DECREASED; PLATELET MORPHOLOGY COMMENT NORMAL; RBC MORPHOLOGY COMMENT NORMAL
== END 2018-09-27 10:49 | disposition home or self-care (01) ==
LOC: ER 08:44
DX: R19.7 Diarrhea, unspecified (principal); E86.0 Dehydration; I10 Essential (primary) hypertension; K21.9 Gastro-esophageal reflux disease without esophagitis; E78.5 Hyperlipidemia, unspecified; N40.0 Benign prostatic hyperplasia without lower urinary tract symptoms; Z86.73 Personal history of transient ischemic attack (TIA), and cerebral infarction without residual deficits; Z79.82 Long term (current) use of aspirin
CPT/HCPCS: 36415; 80053; 81001; 83735; 85025; 87086; 99283; J7030

== ENCOUNTER 2018-11-13 12:09 | Emergency (ER) | payer OTHER ==
[~2018-11-13] VITALS: Ht 167.6 cm; Wt 71.7 kg
--- OUTSIDE RECORDS SUMMARY | 2018-11-13 12:12 | XMS REPORT | Clinical Summary ---
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
[2018-11-13] MEDS ORDERED: SODIUM CHLORIDE 0.9% 1000ML 1,000 ML IV STA (12:35)
[2018-11-13] MEDS ORDERED: ONDANSETRON HCL INJ 2MG/ML 2ML 2 MG/ML VIAL IV STA (12:35)
[2018-11-13 14:00] LABS: BILIRUBIN,URINE NEGATIVE (NEGATIVE); CLARITY,URINE SL CLOUDY (CLEAR); COLOR,URINE YELLOW (YELLOW); KETONES,URINE NEGATIVE (NEGATIVE); LEUKOCYTE ESTERASE ,URINE NEGATIVE (NEGATIVE); NITRITE,URINE NEGATIVE (NEGATIVE); PROTEIN,URINE DIPSTICK NEGATIVE (NEGATIVE); URINE UROBILINOGEN 0.2 mg/dL (0.2 - 1)
[2018-11-13 14:01] LABS: BASOPHILS % 0.4 % (0.0-1.0); EOSINOPHILS # (AUTO) 0.2 (0.0-0.4); EOSINOPHILS % 3.2 % (0.0-6.0); HEMATOCRIT 44.1 % (38.2-49.6); HEMOGLOBIN 14.3 g/dL (14.0-18.0); LYMPHOCYTES # (AUTO) 1.6 (1.0-3.2); LYMPHOCYTES % 28.4 % (18.0-39.1); MEAN CORPUSCULAR HEMOGLOBIN 29.9 pg (28-32); MEAN CORPUSCULAR HGB CONC 32.4 g/dL (31-35); MEAN CORPUSCULAR VOLUME 92.3 fL (81-99); MONOCYTES # (AUTO) 0.4 (0.2-0.8); MONOCYTES % 7.5 % (4.4-11.3); NEUTROPHILS # (AUTO) 3.4 (2.1-6.9); NEUTROPHILS % 60.3 % (38.7-80.0); PLATELET COUNT 129 x10e3/uL (140-360); RED BLOOD COUNT 4.78 x10e6/uL (4.3-5.7); RED CELL DISTRIBUTION WIDTH 12.8 % (11.7-14.4)
[2018-11-13 14:10] LABS: INR 1.04; PROTHROMBIN TIME 14.1 seconds (11.9-14.5)
[2018-11-13 14:11] LABS: PARTIAL THROMBOPLASTIN TIME 36.2 seconds (23.8-35.5)
[2018-11-13 14:15] LABS: BACTERIA,URINE FEW /HPF; CALCIUM OXALATE CRYSTALS,UR FEW (FEW); EPITHELIAL CELLS,URINE MODERATE /LPF; WBC,URINE (MAN) 0-5 /HPF (0-5)
[2018-11-13 14:17] LABS: ALANINE AMINOTRANSFERASE 36 IU/L (0-55); ALBUMIN 3.8 g/dL (3.5-5.0); ALKALINE PHOSPHATASE 72 IU/L (40-150); ANION GAP 11.7 mmol/L (8-16); BLOOD UREA NITROGEN 8 mg/dL (7-26); BUN/CREATININE RATIO 9 (6-25); CARBON DIOXIDE 27 mmol/L (22-29); CHLORIDE 104 mmol/L (98-107); CREATINE KINASE 110 IU/L (30-200); CREATININE, SERUM 0.86 mg/dL (0.72-1.25); EST GLOMERULAR FILTRATION RATE > 60 ML/MIN (60-); GLUCOSE 98 mg/dL (74-118); POTASSIUM 3.7 mmol/L (3.5-5.1); SODIUM 139 mmol/L (136-145)
--- NOTE | 2018-11-13 14:23 | Diagnostic Imaging Report ---
EXAMINATION: CHEST SINGLE (PORTABLE) INDICATION: Dizziness, abdominal pain COMPARISON: Chest radiograph of 09/26/2018 FINDINGS: LINES/TUBES:None LUNGS:The lungs are well-inflated. No focal consolidation or pulmonary edema. Mild left apical pleural-parenchymal thickening/scarring. Left midlung subcentimeter calcified granuloma. PLEURA:No pleural effusion or pneumothorax. MEDIASTINUM:The cardiomediastinal silhouette appears normal in size and shape. Atherosclerotic calcifications of the tortuous thoracic aorta. BONES/SOFT TISSUES:No acute osseous injury. ABDOMEN:No free air under the diaphragm. IMPRESSION: No focal pneumonia or pulmonary edema. Signed by: Dayana Rudolph MD on 11/13/2018 2:20 PM
--- NOTE | 2018-11-13 14:25 | Diagnostic Imaging Report ---
Exam: KUB - 2 views Indication: Abdominal Pain Comparison: None Findings: Nonobstructive bowel gas pattern. No free air. No acute osseous injury. Degenerative changes of the visualized spine. Mild degenerative changes of both hip joints. Phleboliths in the pelvis. Impression: No acute radiographic abnormality. Signed by: Dayana Rudolph MD on 11/13/2018 2:21 PM
--- NOTE | 2018-11-13 17:46 | Diagnostic Imaging Report ---
EXAMINATION: Head CT HISTORY: Dizziness COMPARISON: Head CT 01/13/2018 TECHNIQUE: Multidetector axial images were obtained without contrast from the foramen magnum to the vertex . The images were reconstructed using brain and bone algorithms. Thin section brain images were reformatted into coronal and sagittal planes. Image quality: Motion/streaking artifact limits the evaluation of the skull base and posterior cranial fossa. Dose modulation, iterative reconstruction, and/or weight based adjustment of the mA/kV was utilized to reduce the radiation dose to as low as reasonably achievable. FINDINGS: Parenchyma: 1. Persistent mild chronic microvascular ischemic changes. 2. Unchanged multiple chronic lacunar infarct in the right striatocapsular region, left thalamus, left subinsular region, right putamen. 3. No mass or hemorrhage. No CT evidence of acute territorial vascular insult. Extra-axial spaces:No abnormal density. No extra-axial fluid collections Brain volume: Normal for age. Ventricles: No hydrocephalus or displacement. Arteries: No density suggestive of thrombus. Dural sinuses: No abnormal density. Extra-axial spaces: No abnormal density. Foramen magnum: No mass, Chiari malformation, or basilar invagination. Sella: No obvious mass. Paranasal/mastoid sinuses: Imaged portions unremarkable. Skull/Scalp: No lytic or blastic lesions. No fractures. IMPRESSION: 1. No acute intracranial hemorrhage or cortical infarcts. 2. Stable mild chronic microvascular ischemic changes. 3. Unchanged small chronic lacunar compared to head CT of 01/13/2018. Signed by: Dr. Evelyn Glass M.D. on 11/13/2018 5:43 PM
[2018-11-13 18:25] VITALS: BP 135/79
== END 2018-11-13 18:25 | disposition home or self-care (01) ==
LOC: ER 12:09
DX: R53.1 Weakness (principal); R42 Dizziness and giddiness; I10 Essential (primary) hypertension; E78.5 Hyperlipidemia, unspecified; K21.9 Gastro-esophageal reflux disease without esophagitis; Z86.73 Personal history of transient ischemic attack (TIA), and cerebral infarction without residual deficits; Z83.3 Family history of diabetes mellitus; Z82.49 Family history of ischemic heart disease and other diseases of the circulatory system
CPT/HCPCS: 36415; 70450; 71045; 74018; 80053; 81001; 82550; 82553; 84484; 85025; 85610; 85730; 93005; 99284; J2405; J7030

== ENCOUNTER 2019-08-06 08:54 | Emergency (ER) | payer MEDICARE, OTHER ==
[~2019-08-06] VITALS: Ht 167.6 cm; Wt 71.7 kg
--- NOTE | 2019-08-06 09:23 | Emergency Department Note ---
History of Present Illnes History of Present Illness Chief Complaint: General Medicine Complaints History of Present Illness This is a 84 year old male arrives the ED with complaints of bilateral dodd pain, patient denies any trauma. 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 Patient states pain is worse with ambulation. Patient states pain is isolated over bilateral anterior shins. . Historian: Patient Arrival Mode: Car Lithoduplicator Operator Required: No Radiation: Reports non-radiation Severity: mild Onset quality: gradual Duration (how long): month(s) Progression: waxing and waning Chronicity: recurrent Relieving factors: none, rest Exacerbating factors: movement Associated symptoms: Reports denies other symptoms; Denies confusion, Denies chest pain, Denies weakness Past Medical/Family History Physician Review I have reviewed the patient's past medical and family history. Any updates have been documented here. Past Medical History Recent Fever: No Clinical Suspicion of Infectio: No New/Unexplained Change in Ment: No Past Medical History: Hypertension, CVA, GERD, Hyperlipedemia Other Medical History: BPH Other Surgery: NECK, PROSTATE, URETHRAL Social History Smoking Cessation: Never Smoker Alcohol Use: None Any Illegal Drug Use: No TB Exposure/Symptoms: No Physically hurt or threatened: No Family History Family history of heart diseas: No Other Last Tetanus: UNKNOWN Review of Systems Review of Systems Constitutional: Reports no symptoms EENTM: Reports no symptoms Cardiovascular: Reports no symptoms Respiratory: Reports no symptoms Gastrointestinal: Reports no symptoms Genitourinary: Reports no symptoms Musculoskeletal: Reports as per HPI, Reports muscle pain, Reports muscle stiffness Integumentary: Reports no symptoms Neurological: Reports no symptoms Psychological: Reports no symptoms Endocrine: Reports no symptoms Hematological/Lymphatic: Reports no symptoms Physical Exam Related Data Allergies: Coded Allergies: No Known Allergies (Unverified , 09/26/18) Vital signs reviewed: Yes Physical Exam CONSTITUTIONAL Constitutional: Present well-developed, Present well-nourished HENT HENT: Present normocephalic, Present atraumatic, Present oropharynx clear/moist, Present nose normal HENT L/R: Present left ext ear normal, Present right ext ear normal EYES Eyes: Reports PERRL, Reports conjunctivae normal NECK Neck: Present ROM normal PULMONARY Pulmonary: Present effort normal, Present breath sounds normal CARDIOVASCULAR Cardiovascular: Present regular rhythm, Present heart sounds normal, Present capillary refill normal, Present normal rate GASTROINTESTINAL Abdominal: Present soft, Present nontender, Present bowel sounds normal GENITOURINARY Genitourinary: Present exam deferred SKIN Skin: Present warm, Present dry MUSCULOSKELETAL Musculoskeletal: Present ROM normal NEUROLOGICAL Neurological: Present alert, Present oriented x 3, Present no gross motor or sensory deficits PSYCHOLOGICAL Psychological: Present mood/affect normal, Present judgement normal Results Imaging Imaging results reviewed: Yes Impressions IMPRESSION: No acute radiographic abnormality identified within the bilateral tibias/fibulas. Assessment & Plan Medical Decision Making MDM 84-year-old well-appearing male arrives to the ED with complaints of traumatic bilateral dodd pain. Pain has been present for several weeks, intermittent and worse at night. On exam patient appears well-appearing, focal 70 exam shows no skin break, no overlying rash, compartments are soft, nontender extremity, normal popliteal/DP/PT pulses, and normal range of motion. Patient's pain is reproducible on palpation over anterior dodd. Normal vital signs. X-rays obtained which showed no acute abnormalities. Assessment & Plan Final Impression: (1) PAIN IN LEFT LOWER LEG (2) PAIN IN RIGHT LOWER LEG Depart Disposition: HOME, SELF-FPC Meds Active Scripts Tramadol Hcl (ULTRAM) 50 Mg Tablet, 50 MG PO Q6HR PRN for Mild Pain (1-3) or Fever>100.8, #12 TAB Prov:BYRON BAIRD DO 08/06/19 Simvastatin (SIMVASTATIN) 40 Mg Tablet, 40 MG PO HS for 30 Days Prov:VLAD BARROS TELEVISION ENGINEERING TEACHER 01/14/18 Aspirin (ASPIRIN ENTERIC COATED) 325 Mg Tabec, 325 MG PO QAM for 30 Days Prov:VLAD BARROS TELEVISION ENGINEERING TEACHER 01/14/18 Reported Medications Latanoprost (LATANOPROST) 2.5 Ml Drops, 1 DROP OU HS, BOTTLE 01/13/18 Finasteride (FINASTERIDE) 5 Mg Tablet, 5 MG PO DAILY, #30 TAB 01/13/18 Omeprazole (OMEPRAZOLE) 40 Mg Capsule.dr, DAILY 01/13/18 Lisinopril (LISINOPRIL) 10 Mg Tablet, 40 MG PO DAILY, #30 TAB 01/13/18 BYRON BAIRD DO Aug 06, 2019 09:23
[2019-08-06] MEDS ORDERED: NAPROXEN 250 MG TAB PO ONE (09:30)
--- NOTE | 2019-08-06 11:12 | Diagnostic Imaging Report ---
EXAM: TIBIA-FIBULA BILATERAL DATE: 08/06/2019 9:56 AM INDICATION: Pain COMPARISON: None FINDINGS: There is no evidence for acute fracture or dislocation. No focal lytic or blastic abnormality is identified. Mild plantar calcaneal spurring noted bilaterally. Vascular calcifications are noted bilaterally. The surrounding soft tissues are otherwise unremarkable without evidence for radiopaque foreign body. IMPRESSION: No acute radiographic abnormality identified within the bilateral tibias/fibulas. Signed by: Dr. Mahesh Sharif MD on 08/06/2019 11:08 AM
[2019-08-06 11:15] VITALS: BP 125/71
[2019-08-06] MEDS ORDERED: ULTRAM50 MG PO (11:29)
== END 2019-08-06 11:43 | disposition home or self-care (01) ==
LOC: ER 08:54
DX: M79.662 Pain in left lower leg (principal); M79.661 Pain in right lower leg; R26.2 Difficulty in walking, not elsewhere classified; I10 Essential (primary) hypertension; E78.5 Hyperlipidemia, unspecified; K21.9 Gastro-esophageal reflux disease without esophagitis; Z86.73 Personal history of transient ischemic attack (TIA), and cerebral infarction without residual deficits
CPT/HCPCS: 99283

== ENCOUNTER 2019-10-02 15:43 | Emergency (ER) | payer MEDICARE ==
[~2019-10-02] VITALS: Ht 167.6 cm; Wt 71.7 kg
[~2019-10-02 15:43] MED LIST changes: +ULTRAM50 MG PO
--- NOTE | 2019-10-02 16:26 | Emergency Department Note ---
History of Present Illnes History of Present Illness Chief Complaint: General Medicine Complaints History of Present Illness This is a 84 year old male Chief Complaint Comment fell yesterday unknown cause, unk if loc. left eye swollen shut with swelling and bruising noted. not on thinners. pt [id number]. arrived on crutches. pt awake and alert at this time. pain to left arm as well. pt can stand and bear wt. lac to left elbow noted. 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 Any updates have been documented here. Past Medical History Recent Fever: No Clinical Suspicion of Infectio: No New/Unexplained Change in Ment: No Past Medical History: Hypertension, CVA, GERD, Hyperlipedemia Other Medical History: BPH Past Surgical History: Appendectomy Other Surgery: NECK, PROSTATE, URETHRAL TURP Other Last Tetanus: UNKNOWN Review of Systems Review of Systems Constitutional: Reports no symptoms EENTM: Reports no symptoms Cardiovascular: Reports no symptoms Respiratory: Reports no symptoms Gastrointestinal: Reports no symptoms Genitourinary: Reports no symptoms Musculoskeletal: Reports no symptoms, Reports joint pain (Left elbow, knee, shoulder); Denies back pain Integumentary: Reports no symptoms Neurological: Reports no symptoms, Reports headache Psychological: Reports no symptoms Endocrine: Reports no symptoms Hematological/Lymphatic: Reports no symptoms Physical Exam Related Data Allergies: Coded Allergies: No Known Allergies (Unverified , 09/26/18) Triage Vital Signs Vital Signs Date Time Temp Pulse Resp B/P (MAP) Pulse Ox O2 Delivery O2 Flow Rate FiO2 10/02/19 16:13 98.2 71 16 114/85 100 Room Air Vital signs reviewed: Yes Physical Exam CONSTITUTIONAL Constitutional: Present well-developed, Present well-nourished HENT HENT: Present normocephalic, Present atraumatic, Present oropharynx clear/moist, Present nose normal HENT L/R: Present left ext ear normal, Present right ext ear normal EYES Eyes: Reports PERRL, Reports conjunctivae normal, Reports EOM normal, Reports other (Swelling and bruising to L orbit) NECK Neck: Present ROM normal PULMONARY Pulmonary: Present effort normal, Present breath sounds normal CARDIOVASCULAR Cardiovascular: Present regular rhythm, Present heart sounds normal, Present capillary refill normal, Present normal rate GASTROINTESTINAL Abdominal: Present soft, Present nontender, Present bowel sounds normal GENITOURINARY Genitourinary: Present exam deferred SKIN Skin: Present warm, Present dry MUSCULOSKELETAL Musculoskeletal: Present ROM normal, Present other (Skin tear to L elbow. L knee tenderness) NEUROLOGICAL Neurological: Present alert, Present oriented x 3, Present no gross motor or sensory deficits PSYCHOLOGICAL Psychological: Present mood/affect normal, Present judgement normal Procedures 12 Lead ECG Interpretation ECG Interpretation : Business Administration Instructor: Interpreted by ED physician Date: Oct 02, 2019 Rhythm: sinus rhythm Rate: normal QRS axis: normal ST segments normal: Yes T waves normal: Yes Clinical Impression: normal ECG Assessment & Plan Medical Decision Making MDM 84-year-old male, not on thinners had a fall last night and hit left side of his head. He states he does not remember the fall but does not think that he passed out. He endorses some left-sided facial and head pain as well as left elbow and left knee. Examination shows a swollen left orbit and a skin tear to left elbow. His tetanus was updated. CT and workup is remarkable for a small left-sided subdural hematoma. Patient will require transfer to [facility] for [facility] Discussed patient with DR. Pepper who has agreed to accept the patient. Patient is appropriate for transfer. Reassessment Reassessment time: 17:15 Reassessment Alert, oriented, NAD Assessment & Plan Final Impression: (1) Subdural hematoma Depart Disposition: TRANS TO OTHER [facility] Last Vital Signs Date Time Temp Pulse Resp B/P (MAP) Pulse Ox O2 Delivery O2 Flow Rate FiO2 10/02/19 16:13 98.2 71 16 114/85 100 Room Air Home Meds Active Scripts Tramadol Hcl (ULTRAM) 50 Mg Tablet, 50 MG PO Q6HR PRN for Mild Pain (1-3) or Fever>100.8, #12 TAB Prov:BYRON BAIRD, 08/06/19 Simvastatin (SIMVASTATIN) 40 Mg Tablet, 40 MG PO HS for 30 Days Prov:VLAD BARROS Arabella MECHANICAL APPLICATIONS ENGINEER 01/14/18 Aspirin (ASPIRIN ENTERIC COATED) 325 Mg Tabec, 325 MG PO QAM for 30 Days Prov:VLAD BARROS Arabella MECHANICAL APPLICATIONS ENGINEER 01/14/18 Reported Medications Latanoprost (LATANOPROST) 2.5 Ml Drops, 1 DROP OU HS, BOTTLE 01/13/18 Finasteride (FINASTERIDE) 5 Mg Tablet, 5 MG PO DAILY, #30 TAB 01/13/18 Omeprazole (OMEPRAZOLE) 40 Mg Capsule.dr, DAILY 01/13/18 Lisinopril (LISINOPRIL) 10 Mg Tablet, 40 MG PO DAILY, #30 TAB 01/13/18 AKOSUA LEWIS MD Oct 02, 2019 16:26
[2019-10-02] MEDS ORDERED: TETANUS/DIPHTHERIA TOX ADULT 0.5 ML SYR IM ONE (16:30)
--- NOTE | 2019-10-02 17:26 | Diagnostic Imaging Report ---
EXAMINATION: CHEST 2 VIEWS INDICATION: Fall with loss of consciousness. COMPARISON: None FINDINGS: TUBES and LINES: None. LUNGS: Normal lung volumes. Lungs are clear. No consolidations. There is a 4 mm calcified granuloma in the left midlung. PLEURA: No pleural effusion or pneumothorax. HEART AND MEDIASTINUM: The cardiomediastinal silhouette is unremarkable. BONES AND SOFT TISSUES: No acute osseous lesion. Partially imaged cervical spine hardware. Soft tissues are unremarkable. UPPER ABDOMEN: No free air under the diaphragm. IMPRESSION: No acute thoracic radiographic abnormality. Signed by: Caterina Garcia MD on 10/02/2019 5:23 PM
[2019-10-02 17:28] LABS: BASOPHILS % 0.2 % (0.0-1.0); EOSINOPHILS # (AUTO) 0.1 (0.0-0.4); EOSINOPHILS % 1.5 % (0.0-6.0); HEMATOCRIT 37.3 % (38.2-49.6); HEMOGLOBIN 12.2 g/dL (14.0-18.0); LYMPHOCYTES # (AUTO) 1.9 (1.0-3.2); LYMPHOCYTES % 23.2 % (18.0-39.1); MEAN CORPUSCULAR HEMOGLOBIN 31.8 pg (28-32); MEAN CORPUSCULAR HGB CONC 32.7 g/dL (31-35); MEAN CORPUSCULAR VOLUME 97.1 fL (81-99); MONOCYTES # (AUTO) 0.7 (0.2-0.8); NEUTROPHILS # (AUTO) 5.3 (2.1-6.9); NEUTROPHILS % 65.2 % (38.7-80.0); PLATELET COUNT 137 x10e3/uL (140-360); RED BLOOD COUNT 3.84 x10e6/uL (4.3-5.7); RED CELL DISTRIBUTION WIDTH 13.7 % (11.7-14.4)
--- NOTE | 2019-10-02 17:29 | Diagnostic Imaging Report ---
ADDENDUM #1 2 views of the shoulder were obtained. Absence of an axillary or scapular Y view limits assessment for glenohumeral dislocation. If there is clinical suspicion for glenohumeral dislocation, recommend adding scapular Y or axillary view of the shoulder. Signed by: Caterina Garcia MD on 10/02/2019 5:34 PM ORIGINAL REPORT X-ray site and # of views HISTORY: Shoulder pain. COMPARISON: None available. FINDINGS: Bones/joints: No acute fracture or evidence of dislocation. There are severe degenerative changes of the AC joint. There are moderate degenerative changes of the glenohumeral joint with superior migration of the humeral head in relation to the glenoid, compatible with rotator cuff arthropathy. Soft tissues: No focal soft tissue abnormality. Others: The partially imaged left hemithorax is clear with atherosclerotic disease of the thoracic aorta. IMPRESSION: 1. No acute fracture or dislocation. 2. 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 Signed by: Caterina Garcia MD on 10/02/2019 5:25 PM
--- OUTSIDE RECORDS SUMMARY | 2019-10-02 17:33 | XMS REPORT | Clinical Summary ---
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
--- OUTSIDE RECORDS SUMMARY | 2019-10-02 17:33 | XMS REPORT | Continuity of Care Document ---
Author Author [facility] t Organization [facility] Address [address] [place] [address] Phone Unavailable Care Team Providers Care Name Role Phone BREANNAFARIDEH PCP Dwain Drake Attphys Unavailable SANDHIR, Delvis MATTHEWS Attphys Unavailable REEMA, T REGINA Attphys Unavailable MOHIT ROBLES Attphys Unavailable MELANIE ROBBINS Attphys Unavailable MANEEVESE, Verena KAUFMAN Attphys Unavailable MOHIT ROBLES Admphys Unavailable Payers Payer Name Policy Type Policy Number Effective Date Expiration Date Delvis interiano [facility] [id number] 2008 00:00:00 [facility] Plus [id number] 2008 00:00:00 [facility] [id number] 2008 00:00 :00 [facility] Problems Condition Name Condition Details Condition Category Status Onset Date Resolution Date Last Treatment Date Treating Clinician Comments Source Hoarseness Hoarseness Disease Active 2016-11-02 00:00:00 [place] [facility] Vocal fold paralysis, right Vocal fold paralysis, right Disease Active 2016-11-02 00:00:00 Harish Capps Cerebrovascular accident (CVA) CVA (cerebrovascular accident) Problem Active [facility] Chest pain Chest pain Problem Active [facility] Allergies, Adverse Reactions, Alerts This patient has no known allergies or adverse reactions. Social History Social Habit Start Date Stop Date Quantity Comments Source Sex Assigned At Su Capps Alcohol intake 2016-12-02 00:00:00 2016-12-02 00:00:00 Current non-drinker of alcohol (finding) Harish Capps Smoking Status Start Date Stop Date Source Never smoker Harish Sowmitch fink Medications Ordered Medication Name Filled Medication Name Start Date Stop Da te Current Medication? Ordering Clinician Indication Dosage Frequency Signature (SIG) Comments Components Source Tramadol Hcl (Ultram) 50 Mg TABLET Tramadol Hcl (Ultram) 50 Mg TABLET 2019-08-06 11:29:00 Yes 50 Every 6 Ho urs as needed for Mild Pain (1-3) Or Fever>100.8 [facility] Aspirin (Aspirin Enteric Coated) 325 Mg TABEC Aspirin (Aspirin Enteric Coated) 325 Mg TABEC 2018-01-14 06:38:00 Yes 325 Every Morni ng [facility] Simvastatin Simvastatin 2018-01-14 06:38:00 Yes 40 B edtime [facility] sulfamethoxazole-trimethoprim (BACTRIM SS) 400-80 mg per tab let 2016-11-29 00:00:00 Yes Harish Capps pravastatin (PRAVACHOL) 20 MG tablet 2016-10-25 00:00:00 Yes Harish Capps omeprazole (PriLOSEC) 40 MG capsule 2016-10-25 00:00:00 Yes Harish Capps finasteride (PROSCAR) 5 mg tablet 2016-10-01 00:00:00 Yes [place] [facility] lisinopril (PRINIVIL,ZESTRIL) 40 mg tablet 2016-08-03 00:00:00 Yes [place] [facility] Finasteride Finasteride Yes 5 Daily [facility] Latanoprost Latanoprost Yes 1 Bedtime [facility] Lisinopril Lisinopril Yes 40 Daily [facility] Omeprazole Omeprazole Yes Daily [facility] Pravastatin Sodium Pravastatin Sodium 2018-01-14 00:00:00 No Daily [facility] Vital Signs Vital Name Observation Time Observation Value Comments Source Body Temperature 2019-08-06 11:15:00 98.4 [degF] [facility] Weight 2019-08-06 08:54:00 158 [lb_av] [facility] BMI (Body Mass Index) 2019-08-06 08:54:00 25.5 kg/m2 [facility] Procedures Procedure Date / Time Performed Performing Clinician [facility] e Computed tomography of brain without radiopaque contrast 201 10-30-22 00:00:00 DICK MIKE [facility] Plan of Care Planned Activity Planned Date Details Comments Source Future Scheduled Test 2019-09-22 00:00:00 INFLUENZA VACCINE [code = INFLUENZA VACCINE] [facility] Future Scheduled Test 2000 00:00:00 65+ PNEUMOCOCCAL V ACCINE (1 of 2 - PCV13) [code = 65+ PNEUMOCOCCAL VACCINE (1 of 2 - PCV13)] [facility] Scheduled Test 1985 00:00:00 SHINGLES VACCINES (#1) [code = SHINGLES VACCINES (#1)] [facility] Osteoarthritis [facility] Encounters Start Date/Time End Date/Time Encounter Type Admission Type [facility] Care Department Encounter ID Source 2019-08-06 08:54:00 2019-08-06 11:43:00 Departed Emergency Room 1 BYRON BAIRD [facility] [id number] [facility] 2018-11-13 12:09:00 2018-11-13 18:25:00 Departed Emergency Room 1 BYRON LORENZ [facility] [id number] [facility] 2018-09-27 08:44:00 2018-09-27 10:49:[address] [facility] [id number] [facility] 2018-09-26 10:31:00 2018-09-26 15:02:00 Departed Emergency Room [address] [facility] [id number] [facility] 2018-01-14 09:14:00 2018-01-14 13:45:00 Discharged Inpatient [address] [facility] [id number] [facility] 2017-04-19 09:44:00 2017-04-19 11:37:00 Departed Emergency Room ER MELANIE ROBBINS [facility] [id number] [facility] 2017-02-25 09:54:00 2017-02-25 14:07:00 Departed Emergency Room ER SHAE POND [facility] [id number] [facility] Results Test Description Test Time Test Comments Results Result Comments Source SHOULDER LEFT COMPLETE 2019-10-02 17:23:00 [facility] [address] [address] Patient Name: ARIAN BLANCAS SR MR #: [id number] : 1935 Age/Sex: 84/M Req #: [id number] Adm Physician: Ordered by: Akosua Drake MD Report #: [id number] Location: ER Room/Bed: Procedure: [id number] DX/SHOULDER LEFT COMPLETE Exam Date: 10/02/19 Exam Time: 1648 REPORT STATUS: Signed X-ray site and # of views HISTORY: Shoulder pain. COMPARISON: None available. FINDINGS: Bones/joints: No acute fracture or evidence of dislocation. There are severe degenerative changes of the AC joint. There are moderate degenerative changes of the glenohumeral joint with superior migration of the humeral head in relation to the glenoid, compatible with rotator cuff arthropathy. Soft tissues: No focal soft tissue abnormality. Others: The partially imaged left hemithorax is clear with atherosclerotic disease of the thoracic aorta. IMPRESSION: 1. No acute fracture or dislocation. 2. 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 Signed by: Chandni Gómez MD on 10/02/2019 5:25 PM Dictated By: CHANDNI GÓMEZ MD 24 Transcribed By: VIVIANE on 10/02/191724 COPY TO: AKOSUA DRAKE MD CHEST 2 VIEWS 2019-10-02 17:22:[address] [address] Patient Name: ARIAN BLANCAS SR MR #: [id number] : 1935 Age/Sex: 84/M Req #: [id number] Adm Physician: Ordered by: Akosua Drake MD Report #: [id number] Location: ER Room/Bed: Procedure: [id number] DX/CHEST 2 VIEWS Exam Date: 10/02/19 Exam Time: 1648 REPORT STATUS: Signed EXAMINATION: CHEST 2 VIEWS INDICATION: Fall with loss of consciousness. COMPARISON: None FINDINGS: TUBES and LINES: None. LUNGS: Normal lung volumes. Lungs are clear. No consolidations. There is a 4 mm calcified granuloma in the left midlung. PLEURA: No pleural effusion or pneumothorax. HEART AND MEDIASTINUM: The cardiomediastinal silhouette is unremarkable. BONES AND SOFT TISSUES: No acute osseous lesion. Partially imaged cervical spine hardware. Soft tissues are unremarkable. UPPER ABDOMEN: No free air under the diaphragm. IMPRESSION: No acute thoracic radiographic abnormality. Signed by: Chandni Gómez MD on 10/02/2019 5:23 PM Dictated By: CHANDNI GÓMEZ MD 22 Transcribed By: VIVIANE on 10/02/191722 COPY TO: AKOSUA DRAKE MD TIBIA-FIBULA BILATERAL 2019-08-06 11:06:00 [address] [address] Patient Name: ARIAN BLANCAS MR #: [id number] : 1935 Age/Sex: 84/M Req #: [id number] Adm Physician: Ordered by: BYRON BAIRD DO Report #: [id number] Location: ER Room/Bed: Procedure: [id number] DX/TIBIA-FIBULA BILATERAL Exam Date: 08/06/19 Exam Time: 955 REPORT STATUS: Signed EXAM: TIBIA-FIBULA BILATERAL DATE: 08/06/2019 9:56 AM INDICATION: Pain COMPARISON: None FINDINGS: There is no evidence for acute fracture or dislocation. No focal lytic or blastic abnormality is identified. Mild plantar calcaneal spurring noted bilaterally. Vascular calcifications are noted bilaterally. The surrounding soft tissues are otherwise unremarkable without evidence for radiopaque foreign body. IMPRESSION: No acute radiographic abnormality identified within the bilateral tibias/fibulas. Signed by: Dr. Mahesh Sharif MD on 08/06/2019 11:08 AM Dictated By: MAHESH SHARIF MD 1108 Transcribed By: VIVIANE on 08/06/19 110 COPY TO: BYRON BAIRD DO CT BRAIN WO 2018-11-13 17:41:[address] [address] Patient Name: ARIAN BLANCAS MR #: [id number] : 1935 Age/Sex: 83/M Req #: [id number] Adm Physician: Ordered by: DICK MIKE NP Report #: [id number] Location: ER Room/Bed: Procedure: [id number] CT/CT BRAIN WO Exam Date: 11/13/18 Exam Time: 1621 REPORT STATUS: Signed EXAMINATION: Head CT HISTORY: Dizziness COMPARISON: Head CT 01/13/2018 TECHNIQUE: Multidetector axial images were obtained without contrast from the foramen magnum to the vertex . The images were reconstructed using brain and bone algorithms. Thin section brain images were reformatted into coronal and sagittal planes. Image quality: Motion/streaking artifact limits the evaluation of the skull base and posterior cranial fossa. Dose modulation, iterative reconstruction, and/or weight based adjustment of the mA/kV was utilized to reduce the radiation dose to as low as reasonably achievable. FINDINGS: Parenchyma: 1. Persistent mild chronic microvascular ischemic changes. 2. Unchanged multiple chronic lacunar infarct in the right striatocapsular region, left thalamus, left subinsular region, right putamen. 3. No mass or hemorrhage. No CT evidence of acute territorial vascular insult. Extra-axial spaces:No abnormal density. No extra-axial fluid collections Brain volume: Normal for age. Ventricles: No hydrocephalus or displacement. Arteries: No density suggestive of thrombus. Dural sinuses: No abnormal density. Extra-axial spaces: No abnormal density. Foramen magnum: No mass, Chiari malformation, or basilar invagination. Sella: No obvious mass. Paranasal/mastoid sinuses: Imaged portions unremarkable. Skull/Scalp: No lytic or blastic lesions. No fractures. IMPRESSION: 1. No acute intracranial hemorrhage or cortical infarcts. 2. Stable mild chronic microvascular ischemic changes. 3. Unchanged small chronic lacunar compared to head CT of 01/13/2018. Signed by: Dr. Dia Glass M.D. on 11/13/2018 5:43 PM Dictated By: DIA GLASS MD 42 Transcribed By: VIVIANE on 11/13/181742 COPY TO: DICK MIKE NP Creatine Kinase MB 2018-11-13 14:29:00 Test Item Creatine Kinase MB (test code = 86980-8) 1.70 0-5.0 [facility] [id number] 14:29:00* Test Item Value Reference Range Interpretation Comments Troponin I (test code = XVY5839) < 0.001 0-0.300 [facility] (KUB)2018-11-13 14:20:00 [address] [address] Patient Name: ARIAN BLANCAS MR #: [id number] : 1935 Age/Sex: 83/M Req #: [id number] Adm Physician: Ordered by: DICK MIKE NP Report #: [id number] Location: ER Room/Bed: Procedure: [id number] D X/ABDOMEN-1VIEW (KUB) Exam Date: 11/13/18 Exam Time: 1400 REPORT STATUS: Signed Exam: KUB - 2 views Indication: Abdominal Pain Comparison: None Findi ngs: Nonobstructive bowel gas pattern. No free air. No acute osseous injury. Degenerative changes of the visualized spine. Mild degenerative changes of both hip joints. Phleboliths in the pelvis. Impression: No acute radiograp hic abnormality. Signed by: Janki Dinh MD on 11/13/2018 2:21 PM Dict ated By: JANKI DINH MD 20 Transcribed By: VIVIANE on 11/13/18 142 COPY TO: DICK MIKE NP Sodium Wpqrt1676-06-95 14:19:00* Test Item Value Reference Range Interpretation Comments Sodium Level (test code = 2951-2) 139 136-145 [facility] Bcndq8693-36-55 14:19:00* Test Item Value Reference Range Interpretation Comments Potassium Level (test code = 2823-3) 3.7 3.5-5.1 [facility] CenterChloride Txytf2562-85-16 14:19:00* Test Item Value Reference Range Interpretation Comments Chloride Level (test code = 2075-0) 104 98-107 [facility] CenterCarbon Dioxide Liotp4475-18-62 14:19:00* Test Item Value Reference Range Interpretation Comments Carbon Dioxide Level (test code = 2028-9) 27 22-29 [facility] CenterAnion Kie7868-23-22 14:19:00* Test Item Value Reference Range Interpretation Comments Anion Gap (test code = 96287-8) 11.7 8-16 [facility] CenterBlood Urea Catjfzhz7442-72-57 14:19:00* Test Item Value Reference Range Interpretation Comments Blood Urea Nitrogen (test code = 3094-0) 8 7-26 [facility] CenterCreatinine2019-09-23 14:19:00* Test Item Value Reference Range Interpretation Comments Creatinine (test code = 2160-0) 0.86 0.72-1.25 [facility] CenterBUN/Creatinine Lqwoq7951-56-06 14:19:00* Test Item Value Reference Range Interpretation Comments BUN/Creatinine Ratio (test code = 3097-3) 9 6-25 [facility] CenterEstimat Glomerular Filtration Rate 2018-11-13 14:19:00* Test Item Value Reference Range Interpretation Comments Estimat Glomerular Filtration Rate (test code = 854711866) > 60 >60 Ranges were taken from the National Kidney Disease Education Program and the [facility] Foundation literature.Reference ranges:60 or greater: Zouafj51-69 ( for 3 consecutive months): Chronic kidney disease 15 or less: Kidney failureSaint Mark's Medical CenterGlucose Ppghl2067-10-02 14:19:00* Test Item Value Reference Range Interpretation Comments Glucose Level (test code = ANG9642) 98 74-118 [facility] CenterCalcium Ftlvq1565-95-73 14:19:00* Test Item Value Reference Range Interpretation Comments Calcium Level (test code = 46213-3) 10.0 8.4-10.2 [facility] CenterTotal Sunkhnfnl4466-67-11 14:19:00* Test Item Value Reference Range Interpretation Comments Total Bilirubin (test code = 1975-2) 1.2 0.2-1.2 [facility] CenterAspartate Amino Transf (AST/SGOT) 2018-11-13 14:19:00* Test Item Value Reference Range Interpretation Comments Aspartate Amino Transf (AST/SGOT) (test code = Aspartate Amino Transf (AST/SGOT)) 48 5-34 H [facility] CenterAlanine Aminotransferase (ALT/SGPT) 2018-11-13 14:19:00* Test Item Value Reference Range Interpretation Comments Alanine Aminotransferase (ALT/SGPT) (test code = 1742-6) 36 0-55 [facility] Htbbkjb7301-65-03 14:19:00* Test Item Value Reference Range Interpretation Comments Total Protein (test code = 2885-2) 7.6 6.5-8.1 [facility] CenterAlbumin2019-09-23 14:19:00* Test Item Value Reference Range Interpretation Comments Albumin (test code = 1751-7) 3.8 3.5-5.0 [facility] CenterGlobulin2019-09-23 14:19:00* Test Item Value Reference Range Interpretation Comments Globulin (test code = 83977-9) 3.8 2.3-3.5 H [facility] CenterAlbumin/Globulin Ynptg0112-10-16 14:19:00 * Test Item Value Reference Range Interpretation Comments Albumin/Globulin Ratio (test code = 1759-0) 1.0 0.8-2.0 [facility] CenterAlkaline Ygzwauorpeo5756-74-61 14:19:00* Test Item Value Reference Range Interpretation Comments Alkaline Phosphatase (test code = 6768-6) 72 40-150 [facility] CenterCreatine Etlojt7440-45-53 14:19:00* Test Item Value Reference Range Interpretation Comments Creatine Kinase (test code = 2157-6) 110 30-200 [facility] CenterCHEST SINGLE (PORTABLE)2018-11-13 14:18:00 [facility] [address] [address] Patient Name: ARIAN BLANCAS MR #: [id number] : 1935 Age/Sex: 83/M Req #: [id number] Adm Physician: Ordered by: DICK MIKE NP Report #: [id number] Location: ER Room/Bed: Procedure: [id number] D X/CHEST SINGLE (PORTABLE) Exam Date: 11/13/18 Exam T sabrina: 1400 REPORT STATUS: Signed EXAMINATION: CHEST SINGLE (PORTABLE) INDICATION: Dizziness, abdominal pain COMPARISON: Chest radiograph of 09/26/2018 FINDINGS: LINE S/TUBES:None LUNGS:The lungs are well-inflated. No focal consolidation or p ulmonary edema. Mild left apical pleural-parenchymal thickening/scarring. Left midlung subcentimeter calcified granuloma. PLEURA:No pleural effusion or pneumothorax. MEDIASTINUM:The cardiomediastinal silhouette appears normal in size and shape. Atherosclerotic calcifications of the tortuous thoracic aor ta. BONES/SOFT TISSUES:No acute osseous injury. ABDOMEN:No free air un melonie the diaphragm. IMPRESSION: No focal pneumonia or pulmonary edema. Signed by: Janki Dinh MD on 11/13/2018 2:20 PM Dictated By: JANKI DINH MD 19 Transcribed By: VIVIANE on 11/13/181419 COPY TO: DICK MIKE NP Urine WBC 2018-11-13 14:15:00* Test Item Value Reference Range Interpretation Comments Urine WBC (test code = 5821-4) 0-5 0-5 [facility] CenterU[facility] [id number] 14:15:00* Test Item Value Reference Range Interpretation Comments Urine RBC (test code = 73401-8) NONE 0-5 [facility] CenterU[facility] Jyyruplw0898-64-98 14:15:00* Test Item Value Reference Range Interpretation Comments Urine Bacteria (test code = 35309-4) FEW NONE [facility] CenterUrine Epithelial Nwsvr0725-72-91 14:15:00 * Test Item Value Reference Range Interpretation Comments Urine Epithelial Cells (test code = 92260-4) MODERATE NONE [facility] CenterU[facility] Calcium Oxalate Eojwtvfx4183-07-47 14:15:00* Test Item Value Reference Range Interpretation Comments Urine Calcium Oxalate Crystals (test code = 5774-5) FEW FE W [facility] CenterProthrombin Uthb6694-68-08 14:11:00* Test Item Value Reference Range Interpretation Comments Prothrombin Time (test code = 5902-2) 14.1 11.9-14.5 [facility] CenterProthromb Time International Ratio 2018-11-13 14:11:00* Test Item Value Reference Range Interpretation Comments Prothromb Time International Ratio (test code = 6301-6) 1.04 Oral Anticoagulant Therapy INR Values:1. Low Intensity Therapy 1.5 - 2.02 . Moderate Intensity Therapy 2.0 - 3.03. High Intensity Therapy(1) 2.5 - 3. 54. High Intensity Therapy(2) 3.0 - 4.05. Panic Value INR > 5.0 [facility] CenterActivated Partial Thromboplast Time 2018-11-13 14:11:00* Test Item Value Reference Range Interpretation Comments Activated Partial Thromboplast Time (test code = 74750-2) 36.2 23.8-35.5 H [facility] CenterUrine Rsdkr2807-44-03 14:07:00* Test Item Value Reference Range Interpretation Comments Urine Color (test code = 5778-6) YELLOW YELLOW [facility] CenterU[facility] Vzjrhbu8865-99-18 14:07:00* Test Item Value Reference Range Interpretation Comments Urine Clarity (test code = 95542-7) SL CLOUDY CLEAR H [facility] CenterUrine Specific Topgwbg5323-88-23 14:07:00 * Test Item Value Reference Range Interpretation Comments Urine Specific [place] (test code = 5811-5) <=1.005 1.010-1.02 5 [facility] CenterU[facility] rM8670-00-11 14:07:00* Test Item Value Reference Range Interpretation Comments Urine pH (test code = 75509-4) 7 5-7 [facility] Center[facility] Leukocyte Ispjytot8690-87-05 14:07:00* Test Item Value Reference Range Interpretation Comments Urine Leukocyte Esterase (test code = 21276-4) NEGATIVE NEGATIV E [facility] CenterU[facility] Fbclhax2473-80-62 14:07:00* Test Item Value Reference Range Interpretation Comments Urine Nitrite (test code = 55831-8) NEGATIVE NEGATIVE [facility] CenterU[facility] Tfzxzsp9848-51-58 14:07:00* Test Item Value Reference Range Interpretation Comments Urine Protein (test code = 32564-7) NEGATIVE NEGATIVE [facility] CenterU[facility] Glucose (UA)2018-11-13 14:07:00* Test Item Value Reference Range Interpretation Comments Urine Glucose (UA) (test code = 99716-1) NEGATIVE NEGATIVE [facility] CenterU[facility] Sdrapld2485-57-52 14:07:00* Test Item Value Reference Range Interpretation Comments Urine Ketones (test code = 97316-0) NEGATIVE NEGATIVE [facility] CenterU[facility] Edfcybxboerx0949-42-88 14:07:00* Test Item Value Reference Range Interpretation Comments Urine Urobilinogen (test code = 27425-3) 0.2 0.2-1 [facility] CenterU[facility] Anmqdsppb5283-87-35 14:07:00* Test Item Value Reference Range Interpretation Comments Urine Bilirubin (test code = 1977-8) NEGATIVE NEGATIVE [facility] CenterU[facility] Ormnk7704-00-24 14:07:00* Test Item Value Reference Range Interpretation Comments Urine Blood (test code = 44336-4) NEGATIVE NEGATIVE [facility] CenterWhite Blood Qpeth4267-44-27 14:05:00* Test Item Value Reference Range Interpretation Comments White Blood Count (test code = 6690-2) 5.59 4.8-10.8 [facility] CenterRed Blood Quhgo0758-80-44 14:05:00* Test Item Value Reference Range Interpretation Comments Red Blood Count (test code = 789-8) 4.78 4.3-5.7 [facility] CenterHemoglobin2019-09-23 14:05:00* Test Item Value Reference Range Interpretation Comments Hemoglobin (test code = 04945-7) 14.3 14.0-18.0 [facility] CenterHematocrit2019-09-23 14:05:00* Test Item Value Reference Range Interpretation Comments Hematocrit (test code = 4544-3) 44.1 38.2-49.6 [facility] CenterMean Corpuscular Mfzkrh7604-49-45 14:05:00* Test Item Value Reference Range Interpretation Comments Mean Corpuscular Volume (test code = 787-2) 92.3 81-99 [facility] CenterMean Corpuscular Dujddjbdja3611-59-15 14:05:00* Test Item Value Reference Range Interpretation Comments Mean Corpuscular Hemoglobin (test code = 785-6) 29.9 28-32 [facility] CenterMean Corpuscular Hemoglobin Concent 2018-11-13 14:05:00* Test Item Value Reference Range Interpretation Comments Mean Corpuscular Hemoglobin Concent (test code = 786-4) 32.4 31-35 [facility] CenterRed Cell Distribution Qjbgo5624-04-62 14:05:00* Test Item Value Reference Range Interpretation Comments Red Cell Distribution Width (test code = 59425-6) 12.8 11.7 -14.4 [facility] CenterPlatelet Davbq4053-37-80 14:05:00* Test Item Value Reference Range Interpretation Comments Platelet Count (test code = 777-3) 129 140-360 L [facility] CenterNeutrophils (%) (Auto)2018-11-13 14:05:00 * Test Item Value Reference Range Interpretation Comments Neutrophils (%) (Auto) (test code = 65916-7) 60.3 38.7-80.0 [facility] CenterLymphocytes (%) (Auto)2018-11-13 14:05:00 * Test Item Value Reference Range Interpretation Comments Lymphocytes (%) (Auto) (test code = 736-9) 28.4 18.0-39.1 [facility] CenterMonocytes (%) (Auto)2018-11-13 14:05:00* Test Item Value Reference Range Interpretation Comments Monocytes (%) (Auto) (test code = 5905-5) 7.5 4.4-11.3 [facility] CenterEosinophils (%) (Auto)2018-11-13 14:05:00 * Test Item Value Reference Range Interpretation Comments Eosinophils (%) (Auto) (test code = 713-8) 3.2 0.0-6.0 [facility] CenterBasophils (%) (Auto)2018-11-13 14:05:00* Test Item Value Reference Range Interpretation Comments Basophils (%) (Auto) (test code = 706-2) 0.4 0.0-1.0 [facility] CenterIM GRANULOCYTES %2018-11-13 14:05:00* Test Item Value Reference Range Interpretation Comments IM GRANULOCYTES % (test code = IM GRANULOCYTES %) 0.2 0.0- 1.0 [facility] CenterNeutrophils # (Auto)2018-11-13 14:05:00* Test Item Value Reference Range Interpretation Comments Neutrophils # (Auto) (test code = 751-8) 3.4 2.1-6.9 [facility] CenterLymphocytes # (Auto)2018-11-13 14:05:00* Test Item Value Reference Range Interpretation Comments Lymphocytes # (Auto) (test code = 80553-3) 1.6 1.0-3.2 [facility] CenterMonocytes # (Auto)2018-11-13 14:05:00* Test Item Value Reference Range Interpretation Comments Monocytes # (Auto) (test code = 742-7) 0.4 0.2-0.8 [facility] CenterEosinophils # (Auto)2018-11-13 14:05:00* Test Item Value Reference Range Interpretation Comments Eosinophils # (Auto) (test code = 711-2) 0.2 0.0-0.4 [facility] CenterBasophils # (Auto)2018-11-13 14:05:00* Test Item Value Reference Range Interpretation Comments Basophils # (Auto) (test code = 704-7) 0.0 0.0-0.1 [facility] CenterAbsolute Immature Granulocyte (auto 2018-11-13 14:05:00* Test Item Value Reference Range Interpretation Comments Absolute Immature Granulocyte (auto (yuliana t code = Absolute Immature Granulocyte (auto) 0.01 0-0.1 [facility] CenterBlood leukocytes automated count (number/volume)2018-11-13 13:36:00* Test Item Value Reference Range Interpretation Comments White Blood Count (test code = 6690-2) 5.59 4.8-10.8 [facility] CenterBlood erythrocytes automated count (number/volume)2018-11-13 13:36:00* Test Item Value Reference Range Interpretation Comments Red Blood Count (test code = 789-8) 4.78 4.3-5.7 [facility] CenterBlood hemoglobin measurement (moles/volume)2018-11-13 13:36:00* Test Item Value Reference Range Interpretation Comments Hemoglobin (test code = 28210-4) 14.3 14.0-18.0 [facility] CenterAutomated blood hematocrit (volume fraction)2018-11-13 13:36:00* Test Item Value Reference Range Interpretation Comments Hematocrit (test code = 4544-3) 44.1 38.2-49.6 [facility] CenterAutomated erythrocyte mean corpuscular cnniqc0318-09-92 13:36:00* Test Item Value Reference Range Interpretation Comments Mean Corpuscular Volume (test code = 787-2) 92.3 81-99 [facility] CenterAutomated erythrocyte mean corpuscular hemoglobin (mass per erythrocyte)2018-11-13 13:36:00* Test Item Value Reference Range Interpretation Comments Mean Corpuscular Hemoglobin (test code = 785-6) 29.9 28-32 [facility] CenterAutomated erythrocyte mean corpuscular hemoglobin concentration measurement (mass/volume)2018-11-13 13:36:00* Test Item Value Reference Range Interpretation Comments Mean Corpuscular Hemoglobin Concent (test code = 786-4) 32.4 31-35 [facility] CenterRDW OcoLs-Ahi7084-25-23 13:36:00* Test Item Value Reference Range Interpretation Comments Red Cell Distribution Width (test code = 32209-8) 12.8 11.7 -14.4 [facility] CenterAutomated blood platelet count (count/volume)2018-11-13 13:36:00* Test Item Value Reference Range Interpretation Comments Platelet Count (test code = 777-3) 129 140-360 [facility] neutrophil count as percentage of total obxvqijgwc6191-98-79 13:36:00* Test Item Value Reference Range Interpretation Comments Neutrophils (%) (Auto) (test code = 27415-9) 60.3 38.7-80.0 [facility] CenterAutomated blood lymphocyte count as percentage ot total xvzklyzpia7687-02-78 13:36:00* Test Item Value Reference Range Interpretation Comments Lymphocytes (%) (Auto) (test code = 736-9) 28.4 18.0-39.1 [facility] CenterAutthe outer banks hospitaled blood monocyte count as percentage of total apgsomhwhp3724-43-44 13:36:00* Test Item Value Reference Range Interpretation Comments Monocytes (%) (Auto) (test code = 5905-5) 7.5 4.4-11.3 [facility] CenterAutomated blood eosinophil count as percentage of total umwnsjnurp2124-72-02 13:36:00* Test Item Value Reference Range Interpretation Comments Eosinophils (%) (Auto) (test code = 713-8) 3.2 0.0-6.0 [facility] CenterAutomated blood basophil count as percentage of total zfxwvdaomx2489-80-56 13:36:00* Test Item Value Reference Range Interpretation Comments Basophils (%) (Auto) (test code = 706-2) 0.4 0.0-1.0 [facility] CenterFluoroscopic procedure less than one hour pkreomew1976-29-10 13:36:00* Test Item Value Reference Range Interpretation Comments IM GRANULOCYTES % (test code = IM GRANULOCYTES %) 0.2 0.0- 1.0 [facility] CenterAutomated blood neutrophil count 2018-11-13 13:36:00* Test Item Value Reference Range Interpretation Comments Neutrophils # (Auto) (test code = 751-8) 3.4 2.1-6.9 [facility] CenterBlood lymphocytes count (number/volume) 2018-11-13 13:36:00* Test Item Value Reference Range Interpretation Comments Lymphocytes # (Auto) (test code = 56271-4) 1.6 1.0-3.2 [facility] CenterBlst. [facility] monocytes automated count (number/volume)2018-11-13 13:36:00* Test Item Value Reference Range Interpretation Comments Monocytes # (Auto) (test code = 742-7) 0.4 0.2-0.8 [facility] CenterAutomated blood eosinophil count 2018-11-13 13:36:00* Test Item Value Reference Range Interpretation Comments Eosinophils # (Auto) (test code = 711-2) 0.2 0.0-0.4 [facility] CenterAutomated blood basophil count (count/volume)2018-11-13 13:36:00* Test Item Value Reference Range Interpretation Comments Basophils # (Auto) (test code = 704-7) 0.0 0.0-0.1 [facility] CenterFluoroscopic procedure less than one hour ukrewiaj2091-53-95 13:36:00* Test Item Value Reference Range Interpretation Comments Absolute Immature Granulocyte (auto (yuliana t code = Absolute Immature Granulocyte (auto) 0.01 0-0.1 [facility] CenterProthrombin time (PT) in platelet poor plasma by coagulation docsk4559-07-09 13:36:00* Test Item Value Reference Range Interpretation Comments Prothrombin Time (test code = 5902-2) 14.1 11.9-14.5 [facility] CenterINR in Platelet poor plasma by Coagulation qfimq5438-96-55 13:36:00* Test Item Value Reference Range Interpretation Comments Prothromb Time International Ratio (test code = 6301-6) 1.04 Oral Anticoagulant Therapy INR Values:1. Low Intensity Therapy 1.5 - 2.02 . Moderate Intensity Therapy 2.0 - 3.03. High Intensity Therapy(1) 2.5 - 3. 54. High Intensity Therapy(2) 3.0 - 4.05. Panic Value INR > 5.0 [facility] CenterActivated partial thromboplastin time (aPTT) in platelet poor plasma by coagulation ahqpu5477-89-41 13:36:00* Test Item Value Reference Range Interpretation Comments Activated Partial Thromboplast Time (test code = 83207-1) 36.2 23.8-35.5 [facility]ere[facility] plasma sodium measurement (moles/volume)2018-11-13 13:36:00* Test Item Value Reference Range Interpretation Comments Sodium Level (test code = 2951-2) 139 136-145 [facility] Centererum or plasma potassium measurement (moles/volume)2018-11-13 13:36:00* Test Item Value Reference Range Interpretation Comments Potassium Level (test code = 2823-3) 3.7 3.5-5.1 [facility] Centererum or plasma chloride measurement (moles/volume)2018-11-13 13:36:00* Test Item Value Reference Range Interpretation Comments Chloride Level (test code = 2075-0) 104 98-107 [facility] Centererum or plasma carbon dioxide, total measurement (moles/volume)2018-11-13 13:36:00* Test Item Value Reference Range Interpretation Comments Carbon Dioxide Level (test code = 2027-) 27 22-29 [facility] Centererum or plasma anion dck4766-09-81 13:36:00* Test Item Value Reference Range Interpretation Comments Anion Gap (test code = 96905-1) 11.7 8-16 [facility] Centererum or plasma urea nitrogen measurement (mass/volume)2018-11-13 13:36:00* Test Item Value Reference Range Interpretation Comments Blood Urea Nitrogen (test code = 3094-0) 8 7-26 [facility] Centererum or plasma creatinine measurement (mass/volume)2018-11-13 13:36:00* Test Item Value Reference Range Interpretation Comments Creatinine (test code = 2160-0) 0.86 0.72-1.25 [facility] Centererum or plasma urea nitrogen/creatinine mass lsakx9291-43-28 13:36:00* Test Item Value Reference Range Interpretation Comments BUN/Creatinine Ratio (test code = 3097-3) 9 6-25 [facility] CenterEstimated glomerular filtration rate (GFR) nhfxpyxxnnubb3229-34-15 13:36:00* Test Item Value Reference Range Interpretation Comments Estimat Glomerular Filtration Rate (test code = 487500482) > 60 >60 Ranges were taken from the National Kidney Disease Education Program and the [facility] Kid[facility] Foundation literature.Reference ranges:60 or greater: Jxxbhj74-83 ( for 3 consecutive months): Chronic kidney disease 15 or less: Kidney failureSaint Mark's Medical CenterGlucose onczltacfed6512-66-78 13:36:00* Test Item Value Reference Range Interpretation Comments Glucose Level (test code = GOM0376) 98 74-118 [facility]ererum or plasma calcium measurement (mass/volume)2018-11-13 13:36:00* Test Item Value Reference Range Interpretation Comments Calcium Level (test code = 45366-9) 10.0 8.4-10.2 [facility]ererum or plasma total bilirubin measurement (mass/volume)2018-11-13 13:36:00* Test Item Value Reference Range Interpretation Comments Total Bilirubin (test code = 1975-2) 1.2 0.2-1.2 [facility] CenterFluoroscopic procedure less than one hour tjymqcul6784-33-49 13:36:00* Test Item Value Reference Range Interpretation Comments Aspartate Amino Transf (AST/SGOT) (test code = Aspartate Amino Transf (AST/SGOT)) 48 5-34 [facility] Centererum or plasma alanine aminotransferase measurement (enzymatic activity/volume)2018-11-13 13:36:00* Test Item Value Reference Range Interpretation Comments Alanine Aminotransferase (ALT/SGPT) (test code = 1742-6) 36 0-55 [facility] Centererum or plasma protein measurement (mass/volume)2018-11-13 13:36:00* Test Item Value Reference Range Interpretation Comments Total Protein (test code = 2885-2) 7.6 6.5-8.1 [facility]ererum or plasma albumin measurement (mass/volume)2018-11-13 13:36:00* Test Item Value Reference Range Interpretation Comments Albumin (test code = 1751-7) 3.8 3.5-5.0 [facility] CenterPlasma globulin measurement (mass/volume) 2018-11-13 13:36:00* Test Item Value Reference Range Interpretation Comments Globulin (test code = 43969-5) 3.8 2.3-3.5 [facility] Centererum or plasma albumin/globulin mass hnngo4141-04-47 13:36:00* Test Item Value Reference Range Interpretation Comments Albumin/Globulin Ratio (test code = 1759-0) 1.0 0.8-2.0 [facility]ererum or plasma alkaline phosphatase measurement (enzymatic activity/volume)2018-11-13 13:36:00* Test Item Value Reference Range Interpretation Comments Alkaline Phosphatase (test code = 6768-6) 72 40-150 [facility] Centererum or plasma creatine kinase measurement (enzymatic activity/volume)2018-11-13 13:36:00* Test Item Value Reference Range Interpretation Comments Creatine Kinase (test code = 2157-6) 110 30-200 [facility] Centererum or plasma creatine kinase MB measurement (mass/volume)2018-11-13 13:36:00* Test Item Value Reference Range Interpretation Comments Creatine Kinase MB (test code = 83579-6) 1.70 0-5.0 [facility] CenterTroponin I measurement by highly sensitive enzyme vmpqiqqksao4619-87-42 13:36:00* Test Item Value Reference Range Interpretation Comments Troponin I (test code = 73417-0) < 0.001 0-0.300 [facility] CenterUrine color srxzeceuucszj8383-16-03 13:30:00* Test Item Value Reference Range Interpretation Comments Urine Color (test code = 5778-6) YELLOW YELLOW [facility] CenterUrine xfpaqnw2449-39-09 13:30:00* Test Item Value Reference Range Interpretation Comments Urine Clarity (test code = 79248-7) SL CLOUDY CLEAR [facility] Centerpecific gravity of Urine by Test strip 2018-11-13 13:30:00* Test Item Value Reference Range Interpretation Comments Urine Specific [place] (test code = 5811-5) <=1.005 1.010-1.02 5 [facility] CenterUrine pH measurement by automated test qjyfi6747-89-25 13:30:00* Test Item Value Reference Range Interpretation Comments Urine pH (test code = 63356-0) 7 5-7 [facility] CenterUrine leukocyte esterase detection by automated test wchfe6811-37-72 13:30:00* Test Item Value Reference Range Interpretation Comments Urine Leukocyte Esterase (test code = 01997-7) NEGATIVE NEGATIV E [facility] CenterUrine nitrite detection by automated test leoaj1539-86-82 13:30:00* Test Item Value Reference Range Interpretation Comments Urine Nitrite (test code = 11896-8) NEGATIVE NEGATIVE [facility] CenterUrine protein detection by automated test polng4925-77-74 13:30:00* Test Item Value Reference Range Interpretation Comments Urine Protein (test code = 70623-5) NEGATIVE NEGATIVE [facility] CenterUrine glucose detection by automated test kcriw7842-36-22 13:30:00* Test Item Value Reference Range Interpretation Comments Urine Glucose (UA) (test code = 47320-7) NEGATIVE NEGATIVE [facility] CenterUrine ketones detection by automated test mnivt1429-43-91 13:30:00* Test Item Value Reference Range Interpretation Comments Urine Ketones (test code = 61620-8) NEGATIVE NEGATIVE [facility] CenterUrine urobilinogen measurement by test strip (mass/volume)2018-11-13 13:30:00* Test Item Value Reference Range Interpretation Comments Urine Urobilinogen (test code = 73424-9) 0.2 0.2-1 [facility] CenterUrine total bilirubin ztdmccynj4457-13-94 13:30:00* Test Item Value Reference Range Interpretation Comments Urine Bilirubin (test code = 1977-8) NEGATIVE NEGATIVE [facility] CenterUrine erythrocytes uarbcrbyp3295-38-56 13:30:00* Test Item Value Reference Range Interpretation Comments Urine Blood (test code = 78811-3) NEGATIVE NEGATIVE [facility] CenterAutomated urine sediment leukocyte count by microscopy (number/high power field)2018-11-13 13:30:00* Test Item Value Reference Range Interpretation Comments Urine WBC (test code = 5821-4) 0-5 0-5 [facility] CenterErythrocytes detection in urine sediment by light nttfftxmgi5214-64-05 13:30:00* Test Item Value Reference Range Interpretation Comments Urine RBC (test code = 51248-0) NONE 0-5 [facility] CenterBacteria detection in urine sediment by light mdnpnpktry2239-15-25 13:30:00* Test Item Value Reference Range Interpretation Comments Urine Bacteria (test code = 38101-9) FEW NONE [facility] CenterEpithelial cells detection in urine sediment by light owisakvazl2022-88-72 13:30:00* Test Item Value Reference Range Interpretation Comments Urine Epithelial Cells (test code = 84610-0) MODERATE NONE [facility] CenterCalcium oxalate crystals detection in urine sediment by light wyjezawckm3478-76-43 13:30:00* Test Item Value Reference Range Interpretation Comments Urine Calcium Oxalate Crystals (test code = 5774-5) FEW FE W [facility] CenterDifferential Total Cells Counted 2018-09-27 09:59:00* Test Item Value Reference Range Interpretation Comments Differential Total Cells Counted (test code = Differen tial Total Cells Counted) 100 [facility] CenterNeutrophils % (Manual)2018-09-27 09:59:00 * Test Item Value Reference Range Interpretation Comments Neutrophils % (Manual) (test code = 79819-9) 73 40-74 [facility] CenterBand Neutrophils %2018-09-27 09:59:00* Test Item Value Reference Range Interpretation Comments Band Neutrophils % (test code = 764-1) 7 [facility] CenterLymphocytes % (Manual)2018-09-27 09:59:00 * Test Item Value Reference Range Interpretation Comments Lymphocytes % (Manual) (test code = 737-7) 12 19-48 L [facility] CenterMonocytes % (Manual)2018-09-27 09:59:00* Test Item Value Reference Range Interpretation Comments Monocytes % (Manual) (test code = 744-3) 7 3.4-9.0 [facility] CenterEosinophils % (Manual)2018-09-27 09:59:00 * Test Item Value Reference Range Interpretation Comments Eosinophils % (Manual) (test code = 714-6) 1 0-7 [facility] CenterPlatelet Upjeyoaf5884-03-54 09:59:00* Test Item Value Reference Range Interpretation Comments Platelet Estimate (test code = 81241-6) SLIGHTLY DECREASED [facility] CenterPlatelet Morphology Rgsblcl9878-10-59 09:59:00* Test Item Value Reference Range Interpretation Comments Platelet Morphology Comment (test code = 39339-4) NORMAL [facility] CenterRed Cell Morphology Bmzzusx3993-28-39 09:59:00* Test Item Value Reference Range Interpretation Comments Red Cell Morphology Comment (test code = 6742-1) NORMAL [facility] CenterMagnesium Uvddy9886-43-63 09:59:00* Test Item Value Reference Range Interpretation Comments Magnesium Level (test code = 19269-1) 2.2 1.3-2.1 H [facility] CenterDifferential Total Cells Counted 2018-09-27 09:59:00* Test Item Value Reference Range Interpretation Comments Differential Total Cells Counted (test code = Differen tial Total Cells Counted) 100 [facility] CenterNeutrophils % (Manual)2018-09-27 09:59:00 * Test Item Value Reference Range Interpretation Comments Neutrophils % (Manual) (test code = 53564-7) 73 40-74 [facility] CenterBand Neutrophils %2018-09-27 09:59:00* Test Item Value Reference Range Interpretation Comments Band Neutrophils % (test code = 764-1) 7 [facility] CenterLymphocytes % (Manual)2018-09-27 09:59:00 * Test Item Value Reference Range Interpretation Comments Lymphocytes % (Manual) (test code = 737-7) 12 19-48 L [facility] CenterMonocytes % (Manual)2018-09-27 09:59:00* Test Item Value Reference Range Interpretation Comments Monocytes % (Manual) (test code = 744-3) 7 3.4-9.0 [facility] CenterEosinophils % (Manual)2018-09-27 09:59:00 * Test Item Value Reference Range Interpretation Comments Eosinophils % (Manual) (test code = 714-6) 1 0-7 [facility] CenterPlatelet Ujdmbxep7767-48-39 09:59:00* Test Item Value Reference Range Interpretation Comments Platelet Estimate (test code = 69384-6) SLIGHTLY DECREASED [facility] CenterPlatelet Morphology Tbfijxv6062-69-93 09:59:00* Test Item Value Reference Range Interpretation Comments Platelet Morphology Comment (test code = 24982-6) NORMAL [facility] CenterRed Cell Morphology Yjecvze2367-13-91 09:59:00* Test Item Value Reference Range Interpretation Comments Red Cell Morphology Comment (test code = 6742-1) NORMAL [facility] CenterMagnesium Ctfhh8003-31-20 09:59:00* Test Item Value Reference Range Interpretation Comments Magnesium Level (test code = 76911-3) 2.2 1.3-2.1 H [facility] CenterUrine JUD7094-93-20 09:55:00* Test Item Value Reference Range Interpretation Comments Urine WBC (test code = 5821-4) 6-10 0-5 H [facility] CenterUrine PMZ6109-33-99 09:55:00* Test Item Value Reference Range Interpretation Comments Urine RBC (test code = 33244-5) 0-5 0-5 [facility] CenterUrine Jpkpajzs4811-83-04 09:55:00* Test Item Value Reference Range Interpretation Comments Urine Bacteria (test code = 27617-1) MODERATE NONE H [facility] CenterUrine Epithelial Omhit3583-04-35 09:55:00 * Test Item Value Reference Range Interpretation Comments Urine Epithelial Cells (test code = 14772-3) MODERATE NONE [facility] CenterUrine Hyaline Uoalq2582-82-92 09:55:00* Test Item Value Reference Range Interpretation Comments Urine Hyaline Casts (test code = 17757-3) 0-1 0-1 [facility] CenterUrine Mnhct1492-27-37 09:55:00* Test Item Value Reference Range Interpretation Comments Urine Mucus (test code = 8247-9) MODERATE RARE [facility] Hyaline Jqakv8917-97-54 09:55:00* Test Item Value Reference Range Interpretation Comments Urine Hyaline Casts (test code = 10051-0) 0-1 0-1 [facility] CenterUrine Kvtil9792-19-65 09:55:00* Test Item Value Reference Range Interpretation Comments Urine Mucus (test code = 8247-9) MODERATE RARE [facility] Centerodium Uwhxk9512-17-91 09:52:00* Test Item Value Reference Range Interpretation Comments Sodium Level (test code = 2951-2) 140 136-145 [facility] CenterPotassium Jhlqo2778-16-33 09:52:00* Test Item Value Reference Range Interpretation Comments Potassium Level (test code = 2823-3) 3.7 3.5-5.1 [facility] CenterChloride Fukdh6531-23-25 09:52:00* Test Item Value Reference Range Interpretation Comments Chloride Level (test code = 2075-0) 111 98-107 H [facility] CenterCarbon Dioxide Vokhz2400-84-75 09:52:00* Test Item Value Reference Range Interpretation Comments Carbon Dioxide Level (test code = 2028-9) 20 22-29 L [facility] CenterAnion Nql0539-10-41 09:52:00* Test Item Value Reference Range Interpretation Comments Anion Gap (test code = 89002-8) 12.7 8-16 [facility] CenterBlood Urea Xgsqdisw1521-62-75 09:52:00* Test Item Value Reference Range Interpretation Comments Blood Urea Nitrogen (test code = 3094-0) 11 7-26 [facility] CenterCreatinine2019-08-07 09:52:00* Test Item Value Reference Range Interpretation Comments Creatinine (test code = 2160-0) 0.76 0.72-1.25 [facility] CenterBUN/Creatinine Sblwe7386-87-66 09:52:00* Test Item Value Reference Range Interpretation Comments BUN/Creatinine Ratio (test code = 3097-3) 14 6-25 [facility] CenterEstimat Glomerular Filtration Rate 2018-09-27 09:52:00* Test Item Value Reference Range Interpretation Comments Estimat Glomerular Filtration Rate (test code = 734888232) > 60 >60 Ranges were taken from the National Kidney Disease Education Program and the [facility] Kid[facility] Foundation literature.Reference ranges:60 or greater: Whbjpp56-25 ( for 3 consecutive months): Chronic kidney disease 15 or less: Kidney failureSaint [facility]'s Medical CenterGlucose Wbqft3168-24-73 09:52:00* Test Item Value Reference Range Interpretation Comments Glucose Level (test code = XWA5238) 89 74-118 [facility] CenterCalcium Nsxzj1625-26-20 09:52:00* Test Item Value Reference Range Interpretation Comments Calcium Level (test code = 45623-1) 8.9 8.4-10.2 [facility] CenterTotal Lmxddtfhc6068-12-05 09:52:00* Test Item Value Reference Range Interpretation Comments Total Bilirubin (test code = 1975-2) 1.0 0.2-1.2 [facility] CenterAspartate Amino Transf (AST/SGOT) 2018-09-27 09:52:00* Test Item Value Reference Range Interpretation Comments Aspartate Amino Transf (AST/SGOT) (test code = Aspartate Amino Transf (AST/SGOT)) 47 5-34 H [facility] CenterAlanine Aminotransferase (ALT/SGPT) 2018-09-27 09:52:00* Test Item Value Reference Range Interpretation Comments Alanine Aminotransferase (ALT/SGPT) (test code = 1742-6) 31 0-55 [facility] CenterTotal Ezunack2924-15-12 09:52:00* Test Item Value Reference Range Interpretation Comments Total Protein (test code = 2885-2) 6.6 6.5-8.1 [facility] CenterAlbumin2019-08-07 09:52:00* Test Item Value Reference Range Interpretation Comments Albumin (test code = 1751-7) 3.5 3.5-5.0 [facility] CenterGlobulin2019-08-07 09:52:00* Test Item Value Reference Range Interpretation Comments Globulin (test code = 33322-3) 3.1 2.3-3.5 [facility] CenterAlbumin/Globulin Jgchm2788-92-62 09:52:00 * Test Item Value Reference Range Interpretation Comments Albumin/Globulin Ratio (test code = 1759-0) 1.1 0.8-2.0 [facility] CenterAlkaline Djnukanglyl4503-99-53 09:52:00* Test Item Value Reference Range Interpretation Comments Alkaline Phosphatase (test code = 6768-6) 44 40-150 [facility] CenterWhite Blood Grzcz6227-44-99 09:45:00* Test Item Value Reference Range Interpretation Comments White Blood Count (test code = 6690-2) 5.86 4.8-10.8 [facility] CenterRed Blood Dcqvo8783-50-63 09:45:00* Test Item Value Reference Range Interpretation Comments Red Blood Count (test code = 789-8) 4.30 4.3-5.7 [facility] CenterHemoglobin2019-08-07 09:45:00* Test Item Value Reference Range Interpretation Comments Hemoglobin (test code = 49018-1) 13.2 14.0-18.0 L [facility] CenterHematocrit2019-08-07 09:45:00* Test Item Value Reference Range Interpretation Comments Hematocrit (test code = 4544-3) 39.0 38.2-49.6 [facility] CenterMean Corpuscular Lmlgjh8049-30-82 09:45:00* Test Item Value Reference Range Interpretation Comments Mean Corpuscular Volume (test code = 787-2) 90.7 81-99 [facility] CenterMean Corpuscular Qckfwhigrq4088-08-98 09:45:00* Test Item Value Reference Range Interpretation Comments Mean Corpuscular Hemoglobin (test code = 785-6) 30.7 28-32 [facility] CenterMean Corpuscular Hemoglobin Concent 2018-09-27 09:45:00* Test Item Value Reference Range Interpretation Comments Mean Corpuscular Hemoglobin Concent (test code = 786-4) 33.8 31-35 [facility] CenterRed Cell Distribution Nmoxc7145-02-17 09:45:00* Test Item Value Reference Range Interpretation Comments Red Cell Distribution Width (test code = 28607-9) 13.2 11.7 -14.4 [facility] CenterPlatelet Ueuie8328-73-41 09:45:00* Test Item Value Reference Range Interpretation Comments Platelet Count (test code = 777-3) 115 140-360 L [facility] CenterNeutrophils (%) (Auto)2018-09-27 09:45:00 * Test Item Value Reference Range Interpretation Comments Neutrophils (%) (Auto) (test code = 76435-0) 65.1 38.7-80.0 [facility] CenterLymphocytes (%) (Auto)2018-09-27 09:45:00 * Test Item Value Reference Range Interpretation Comments Lymphocytes (%) (Auto) (test code = 736-9) 18.6 18.0-39.1 [facility] CenterMonocytes (%) (Auto)2018-09-27 09:45:00* Test Item Value Reference Range Interpretation Comments Monocytes (%) (Auto) (test code = 5905-5) 11.4 4.4-11.3 H [facility] CenterEosinophils (%) (Auto)2018-09-27 09:45:00 * Test Item Value Reference Range Interpretation Comments Eosinophils (%) (Auto) (test code = 713-8) 4.1 0.0-6.0 [facility] CenterBasophils (%) (Auto)2018-09-27 09:45:00* Test Item Value Reference Range Interpretation Comments Basophils (%) (Auto) (test code = 706-2) 0.3 0.0-1.0 [facility] CenterIM GRANULOCYTES %2018-09-27 09:45:00* Test Item Value Reference Range Interpretation Comments IM GRANULOCYTES % (test code = IM GRANULOCYTES %) 0.5 0.0- 1.0 [facility] CenterNeutrophils # (Auto)2018-09-27 09:45:00* Test Item Value Reference Range Interpretation Comments Neutrophils # (Auto) (test code = 751-8) 3.8 2.1-6.9 [facility] CenterLymphocytes # (Auto)2018-09-27 09:45:00* Test Item Value Reference Range Interpretation Comments Lymphocytes # (Auto) (test code = 99337-7) 1.1 1.0-3.2 [facility] CenterMonocytes # (Auto)2018-09-27 09:45:00* Test Item Value Reference Range Interpretation Comments Monocytes # (Auto) (test code = 742-7) 0.7 0.2-0.8 [facility] CenterEosinophils # (Auto)2018-09-27 09:45:00* Test Item Value Reference Range Interpretation Comments Eosinophils # (Auto) (test code = 711-2) 0.2 0.0-0.4 [facility] CenterBasophils # (Auto)2018-09-27 09:45:00* Test Item Value Reference Range Interpretation Comments Basophils # (Auto) (test code = 704-7) 0.0 0.0-0.1 [facility] CenterAbsolute Immature Granulocyte (auto 2018-09-27 09:45:00* Test Item Value Reference Range Interpretation Comments Absolute Immature Granulocyte (auto (yuliana t code = Absolute Immature Granulocyte (auto) 0.03 0-0.1 [facility] CenterUrine Qahqu5537-74-70 09:44:00* Test Item Value Reference Range Interpretation Comments Urine Color (test code = 5778-6) YELLOW YELLOW [facility] CenterUrine Eryfpyx2338-89-73 09:44:00* Test Item Value Reference Range Interpretation Comments Urine Clarity (test code = 05327-3) SL CLOUDY CLEAR H [facility] Specific Akmfubv2122-32-77 09:44:00 * Test Item Value Reference Range Interpretation Comments Urine Specific [place] (test code = 5811-5) 1.020 1.010-1.02 5 [facility] CenterUrine kR1216-45-46 09:44:00* Test Item Value Reference Range Interpretation Comments Urine pH (test code = 18264-3) 6.5 5-7 [facility] Leukocyte Vgwknygx1601-58-29 09:44:00* Test Item Value Reference Range Interpretation Comments Urine Leukocyte Esterase (test code = 89575-6) NEGATIVE NEGATIV E [facility] Uhjghva5838-26-19 09:44:00* Test Item Value Reference Range Interpretation Comments Urine Nitrite (test code = 83935-2) NEGATIVE NEGATIVE [facility] Vxnoncv5134-89-84 09:44:00* Test Item Value Reference Range Interpretation Comments Urine Protein (test code = 70043-5) NEGATIVE NEGATIVE [facility] Glucose (UA)2018-09-27 09:44:00* Test Item Value Reference Range Interpretation Comments Urine Glucose (UA) (test code = 32118-1) NEGATIVE NEGATIVE [facility] CenterUrine Rxlspdv6363-40-71 09:44:00* Test Item Value Reference Range Interpretation Comments Urine Ketones (test code = 12925-5) NEGATIVE NEGATIVE [facility] Jjddjitgfhbd8128-71-70 09:44:00* Test Item Value Reference Range Interpretation Comments Urine Urobilinogen (test code = 12851-1) 0.2 0.2-1 [facility] CenterUrine Cjfdwraxp1846-68-04 09:44:00* Test Item Value Reference Range Interpretation Comments Urine Bilirubin (test code = 1977-8) NEGATIVE NEGATIVE [facility] Gbcgs5767-73-81 09:44:00* Test Item Value Reference Range Interpretation Comments Urine Blood (test code = 13828-4) MODERATE NEGATIVE [facility] CenterCHEST 2 PLJLD4404-03-62 13:24:00 [facility] [address] [address] Patient Name: ARIAN BLANCAS MR #: [id number] : 1935 Age/Sex: 83/M Req #: [id number] Adm Physician: Ordered by: REGINA BENAVIDEZ MD Report #: [id number] Location: ER Room/Bed: Procedure: [id number] DX /CHEST 2 VIEWS Exam Date: 09/26/18 Exam Time: 1210 REPORT STATUS: Signed EXAMINATION: CHEST 2 VIEWS INDICATION: Weakness COMPARISON: Chest radiograph of 01/13/2018 FINDINGS: LINES/TUBES:None LUNGS:The lungs are well-inflated. No focal consolidation or pulmonary edema. PLEURA:No pleural effusion or pneumothorax. MEDIASTINUM:The cardiomediastinal silhouette a ppears normal in size and shape. Atherosclerotic calcifications of the tortuou s thoracic aorta. BONES/SOFT TISSUES:No acute osseous injury. ABDOMEN: No free air under the diaphragm. IMPRESSION: No focal pneumonia or pu lmonary edema. Signed by: Janki Dinh MD on 09/26/2018 1:26 PM Dictate d By: JANKI DINH MD 1326 T ranscribed By: VIVIANE on 09/26/18 1326 COPY TO: REGINA BENAVIDEZ MD Creatine Kinase QG1805-66-24 12:42:00* Test Item Value Reference Range Interpretation Comments Creatine Kinase MB (test code = 92960-8) 2.00 0-5.0 [facility]Tr[facility] [id number] 12:42:00* Test Item Value Reference Range Interpretation Comments Troponin I (test code = PUG9797) < 0.001 0-0.300 [facility] CenterCreatine Kinase RD3110-60-60 12:42:00* Test Item Value Reference Range Interpretation Comments Creatine Kinase MB (test code = 55738-4) 2.00 0-5.0 [facility] CenterTrPaul [place]ille [address]R4050-42-40 12:42:00* Test Item Value Reference Range Interpretation Comments Troponin I (test code = CNG4118) < 0.001 0-0.300 [facility] CenterInfluenza Virus Types A,B Antigen 2018-09-26 12:40:00* Test Item Value Reference Range Interpretation Comments Influenza Virus Types A,B Antigen (test code = 61793-7) NEGATIVE NEGATIVE [facility] CenterInfluenza Virus Types A,B Antigen 2018-09-26 12:40:00* Test Item Value Reference Range Interpretation Comments Influenza Virus Types A,B Antigen (test code = 74409-7) NEGATIVE NEGATIVE [facility] CenterInfluenza Virus Types A,B Antigen 2018-09-26 12:40:00* Test Item Value Reference Range Interpretation Comments Influenza Virus Types A,B Antigen (test code = 16852-0) NEGATIVE NEGATIVE [facility] Bcakw5917-49-64 12:31:00* Test Item Value Reference Range Interpretation Comments Sodium Level (test code = 2951-2) 140 136-145 [facility] CenterPotassium Loozv6059-74-20 12:31:00* Test Item Value Reference Range Interpretation Comments Potassium Level (test code = 2823-3) 3.7 3.5-5.1 [facility] CenterChloride Rrwfn1731-16-64 12:31:00* Test Item Value Reference Range Interpretation Comments Chloride Level (test code = 2075-0) 107 98-107 [facility] CenterCarbon Dioxide Drehh7034-44-86 12:31:00* Test Item Value Reference Range Interpretation Comments Carbon Dioxide Level (test code = 2028-9) 22 -29 [facility] CenterAnion Ymz9986-20-92 12:31:00* Test Item Value Reference Range Interpretation Comments Anion Gap (test code = 80252-2) 14.7 8-16 [facility] CenterBlood Urea Lwzphemb8100-73-15 12:31:00* Test Item Value Reference Range Interpretation Comments Blood Urea Nitrogen (test code = 3094-0) 10 7- [facility] CenterCreatinine2019-08-06 12:31:00* Test Item Value Reference Range Interpretation Comments Creatinine (test code = 2160-0) 0.78 0.72-1.25 [facility] CenterBUN/Creatinine Kyjth3411-19-41 12:31:00* Test Item Value Reference Range Interpretation Comments BUN/Creatinine Ratio (test code = 3097-3) 13 08-15 [facility] CenterEstimat Glomerular Filtration Rate 2018-09-26 12:31:00* Test Item Value Reference Range Interpretation Comments Estimat Glomerular Filtration Rate (test code = 742787202) > 60 >60 Ranges were taken from the National Kidney Disease Education Program and the [facility] Kid[facility] Foundation literature.Reference ranges:60 or greater: Ezxrub68-32 ( for 3 consecutive months): Chronic kidney disease 15 or less: Kidney failureSaint Mark's Medical CenterGlucose Oilzf3290-60-52 12:31:00* Test Item Value Reference Range Interpretation Comments Glucose Level (test code = VBU7333) 87 74-118 [facility] CenterCalcium Rsngg7935-18-31 12:31:00* Test Item Value Reference Range Interpretation Comments Calcium Level (test code = 14323-0) 9.2 8.4-10.2 [facility] CenterTotal Mzmgzcolu6408-68-64 12:31:00* Test Item Value Reference Range Interpretation Comments Total Bilirubin (test code = 1975-2) 1.3 0.2-1.2 H [facility] CenterAspartate Amino Transf (AST/SGOT) 2018-09-26 12:31:00* Test Item Value Reference Range Interpretation Comments Aspartate Amino Transf (AST/SGOT) (test code = Aspartate Amino Transf (AST/SGOT)) 34 5-34 [facility] CenterAlanine Aminotransferase (ALT/SGPT) 2018-09-26 12:31:00* Test Item Value Reference Range Interpretation Comments Alanine Aminotransferase (ALT/SGPT) (test code = 1742-6) 24 0-55 [facility] CenterTotal Aprfcru5521-19-37 12:31:00* Test Item Value Reference Range Interpretation Comments Total Protein (test code = 2885-2) 7.3 6.5-8.1 [facility] CenterAlbumin2019-08-06 12:31:00* Test Item Value Reference Range Interpretation Comments Albumin (test code = 1751-7) 3.8 3.5-5.0 [facility] CenterGlobulin2019-08-06 12:31:00* Test Item Value Reference Range Interpretation Comments Globulin (test code = 66794-4) 3.5 2.3-3.5 [facility] CenterAlbumin/Globulin Snelx1450-84-44 12:31:00 * Test Item Value Reference Range Interpretation Comments Albumin/Globulin Ratio (test code = 1759-0) 1.1 0.8-2.0 [facility] CenterAlkaline Dwwhafaeglv0429-17-88 12:31:00* Test Item Value Reference Range Interpretation Comments Alkaline Phosphatase (test code = 6768-6) 50 40-150 [facility] CenterCreatine Voacor2265-89-28 12:31:00* Test Item Value Reference Range Interpretation Comments Creatine Kinase (test code = 2157-6) 148 30-200 [facility] CenterAmylase Kiieb8533-70-91 12:31:00* Test Item Value Reference Range Interpretation Comments Amylase Level (test code = 1798-8) 57 25-125 [facility] CenterLipase2019-08-06 12:31:00* Test Item Value Reference Range Interpretation Comments Lipase (test code = 3040-3) 27 78 [facility] CenterCreatine Uzwtqn4581-02-73 12:31:00* Test Item Value Reference Range Interpretation Comments Creatine Kinase (test code = 2157-6) 148 30-200 [facility] CenterAmylase Dedfa5735-34-61 12:31:00* Test Item Value Reference Range Interpretation Comments Amylase Level (test code = 1798-8) 57 25-125 [facility] CenterLipase2019-08-06 12:31:00* Test Item Value Reference Range Interpretation Comments Lipase (test code = 3040-3) 27 8-78 [facility] CenterAmylase Puatt6476-88-21 12:31:00* Test Item Value Reference Range Interpretation Comments Amylase Level (test code = 1798-8) 57 25-125 [facility] CenterLipase2019-08-06 12:31:00* Test Item Value Reference Range Interpretation Comments Lipase (test code = 3040-3) 78 [facility] CenterUrine UES4234-98-31 12:30:00* Test Item Value Reference Range Interpretation Comments Urine WBC (test code = 5821-4) 6-10 0-5 H [facility] CenterUrine YMN4788-47-75 12:30:00* Test Item Value Reference Range Interpretation Comments Urine RBC (test code = 40624-0) 0-5 0-5 [facility] CenterUrine Hxnfhnfm3831-82-96 12:30:00* Test Item Value Reference Range Interpretation Comments Urine Bacteria (test code = 39296-8) MANY NONE H [facility] CenterUrine Epithelial Uoirg5850-52-10 12:30:00 * Test Item Value Reference Range Interpretation Comments Urine Epithelial Cells (test code = 08182-6) MODERATE NONE [facility] CenterUrine Amorphous Aumzumrw5581-14-56 12:30:00* Test Item Value Reference Range Interpretation Comments Urine Amorphous Sediment (test code = 8246-1) MODERATE FEW H [facility] CenterUrine Amorphous Fwqnafum9335-14-90 12:30:00* Test Item Value Reference Range Interpretation Comments Urine Amorphous Sediment (test code = 8246-1) MODERATE FEW H [facility] CenterUrine Amorphous Hvecixdm1460-85-99 12:30:00* Test Item Value Reference Range Interpretation Comments Urine Amorphous Sediment (test code = 8246-1) MODERATE FEW H [facility] CenterProthrombin Wzbc3970-65-18 12:16:00* Test Item Value Reference Range Interpretation Comments Prothrombin Time (test code = 5902-2) 14.7 11.9-14.5 H [facility] CenterProthromb Time International Ratio 2018-09-26 12:16:00* Test Item Value Reference Range Interpretation Comments Prothromb Time International Ratio (test code = 6301-6) 1.10 Oral Anticoagulant Therapy INR Values:1. Low Intensity Therapy 1.5 - 2.02 . Moderate Intensity Therapy 2.0 - 3.03. High Intensity Therapy(1) 2.5 - 3. 54. High Intensity Therapy(2) 3.0 - 4.05. Panic Value INR > 5.0 [facility] CenterActivated Partial Thromboplast Time 2018-09-26 12:16:00* Test Item Value Reference Range Interpretation Comments Activated Partial Thromboplast Time (test code = 77683-9) 35.6 23.8-35.5 H [facility] CenterProthrombin Hlnb8688-40-83 12:16:00* Test Item Value Reference Range Interpretation Comments Prothrombin Time (test code = 5902-2) 14.7 11.9-14.5 H [facility] CenterProthromb Time International Ratio 2018-09-26 12:16:00* Test Item Value Reference Range Interpretation Comments Prothromb Time International Ratio (test code = 6301-6) 1.10 Oral Anticoagulant Therapy INR Values:1. Low Intensity Therapy 1.5 - 2.02 . Moderate Intensity Therapy 2.0 - 3.03. High Intensity Therapy(1) 2.5 - 3. 54. High Intensity Therapy(2) 3.0 - 4.05. Panic Value INR > 5.0 [facility] CenterActivated Partial Thromboplast Time 2018-09-26 12:16:00* Test Item Value Reference Range Interpretation Comments Activated Partial Thromboplast Time (test code = 02316-9) 35.6 23.8-35.5 H [facility] CenterWhite Blood Izglz3569-70-22 12:09:00* Test Item Value Reference Range Interpretation Comments White Blood Count (test code = 6690-2) 4.40 4.8-10.8 L [facility] CenterRed Blood Kynxt9897-49-37 12:09:00* Test Item Value Reference Range Interpretation Comments Red Blood Count (test code = 789-8) 4.54 4.3-5.7 [facility] CenterHemoglobin2019-08-06 12:09:00* Test Item Value Reference Range Interpretation Comments Hemoglobin (test code = 09407-6) 14.0 14.0-18.0 [facility] CenterHematocrit2019-08-06 12:09:00* Test Item Value Reference Range Interpretation Comments Hematocrit (test code = 4544-3) 41.2 38.2-49.6 [facility] CenterMean Corpuscular Jpksnl4416-13-63 12:09:00* Test Item Value Reference Range Interpretation Comments Mean Corpuscular Volume (test code = 787-2) 90.7 81-99 [facility] CenterMean Corpuscular Tunchoagjg4143-12-69 12:09:00* Test Item Value Reference Range Interpretation Comments Mean Corpuscular Hemoglobin (test code = 785-6) 30.8 28-32 [facility] CenterMean Corpuscular Hemoglobin Concent 2018-09-26 12:09:00* Test Item Value Reference Range Interpretation Comments Mean Corpuscular Hemoglobin Concent (test code = 786-4) 34.0 31-35 [facility] CenterRed Cell Distribution Rxvvo0939-24-35 12:09:00* Test Item Value Reference Range Interpretation Comments Red Cell Distribution Width (test code = 32936-2) 13.2 11.7 -14.4 [facility] CenterPlatelet Fhmcx4812-06-42 12:09:00* Test Item Value Reference Range Interpretation Comments Platelet Count (test code = 777-3) 114 140-360 L [facility] CenterNeutrophils (%) (Auto)2018-09-26 12:09:00 * Test Item Value Reference Range Interpretation Comments Neutrophils (%) (Auto) (test code = 73078-2) 72.5 38.7-80.0 [facility] CenterLymphocytes (%) (Auto)2018-09-26 12:09:00 * Test Item Value Reference Range Interpretation Comments Lymphocytes (%) (Auto) (test code = 736-9) 16.6 18.0-39.1 L [facility] CenterMonocytes (%) (Auto)2018-09-26 12:09:00* Test Item Value Reference Range Interpretation Comments Monocytes (%) (Auto) (test code = 5905-5) 8.0 4.4-11.3 [facility] CenterEosinophils (%) (Auto)2018-09-26 12:09:00 * Test Item Value Reference Range Interpretation Comments Eosinophils (%) (Auto) (test code = 713-8) 2.5 0.0-6.0 [facility] CenterBasophils (%) (Auto)2018-09-26 12:09:00* Test Item Value Reference Range Interpretation Comments Basophils (%) (Auto) (test code = 706-2) 0.2 0.0-1.0 [facility] CenterIM GRANULOCYTES %2018-09-26 12:09:00* Test Item Value Reference Range Interpretation Comments IM GRANULOCYTES % (test code = IM GRANULOCYTES %) 0.2 0.0- 1.0 [facility] CenterNeutrophils # (Auto)2018-09-26 12:09:00* Test Item Value Reference Range Interpretation Comments Neutrophils # (Auto) (test code = 751-8) 3.2 2.1-6.9 [facility] CenterLymphocytes # (Auto)2018-09-26 12:09:00* Test Item Value Reference Range Interpretation Comments Lymphocytes # (Auto) (test code = 10846-3) 0.7 1.0-3.2 L [facility] CenterMonocytes # (Auto)2018-09-26 12:09:00* Test Item Value Reference Range Interpretation Comments Monocytes # (Auto) (test code = 742-7) 0.4 0.2-0.8 [facility] CenterEosinophils # (Auto)2018-09-26 12:09:00* Test Item Value Reference Range Interpretation Comments Eosinophils # (Auto) (test code = 711-2) 0.1 0.0-0.4 [facility] CenterBasophils # (Auto)2018-09-26 12:09:00* Test Item Value Reference Range Interpretation Comments Basophils # (Auto) (test code = 704-7) 0.0 0.0-0.1 [facility] CenterAbsolute Immature Granulocyte (auto 2018-09-26 12:09:00* Test Item Value Reference Range Interpretation Comments Absolute Immature Granulocyte (auto (yuliana t code = Absolute Immature Granulocyte (auto) 0.01 0-0.1 [facility] CenterUrine Anmrk2161-93-95 12:07:00* Test Item Value Reference Range Interpretation Comments Urine Color (test code = 5778-6) YELLOW YELLOW [facility] CenterUrine Tbaxoio8202-05-60 12:07:00* Test Item Value Reference Range Interpretation Comments Urine Clarity (test code = 55093-1) CLEAR CLEAR [facility] CenterUrine Specific Bosofuv5274-88-80 12:07:00 * Test Item Value Reference Range Interpretation Comments Urine Specific [place] (test code = 5811-5) 1.010 1.010-1.02 5 [facility] CenterUrine mC6742-12-42 12:07:00* Test Item Value Reference Range Interpretation Comments Urine pH (test code = 35242-7) 7.5 5-7 [facility] CenterUrine Leukocyte Bhryvlwa4895-21-98 12:07:00* Test Item Value Reference Range Interpretation Comments Urine Leukocyte Esterase (test code = 05781-1) NEGATIVE NEGATIV E [facility] CenterUrine Haedyof2524-22-73 12:07:00* Test Item Value Reference Range Interpretation Comments Urine Nitrite (test code = 06982-1) NEGATIVE NEGATIVE [facility] CenterUrine Hsmumvj5094-96-47 12:07:00* Test Item Value Reference Range Interpretation Comments Urine Protein (test code = 74087-6) NEGATIVE NEGATIVE [facility] CenterUrine Glucose (UA)2018-09-26 12:07:00* Test Item Value Reference Range Interpretation Comments Urine Glucose (UA) (test code = 77184-6) NEGATIVE NEGATIVE [facility] Hroxzec9098-98-53 12:07:00* Test Item Value Reference Range Interpretation Comments Urine Ketones (test code = 73197-5) TRACE NEGATIVE H [facility] Hxcynqyljekb5322-30-93 12:07:00* Test Item Value Reference Range Interpretation Comments Urine Urobilinogen (test code = 07910-8) 0.2 0.2-1 [facility] Dmkggkldm5492-10-56 12:07:00* Test Item Value Reference Range Interpretation Comments Urine Bilirubin (test code = 1977-8) NEGATIVE NEGATIVE [facility] Xetkn6296-30-76 12:07:00* Test Item Value Reference Range Interpretation Comments Urine Blood (test code = 83684-6) TRACE NEGATIVE [facility] Tlscfxpoq7967-19-63 06:48:00* Test Item Value Reference Range Interpretation Comments Free Thyroxine (test code = 3024-7) 0.90 0.9-1.8 [facility] CenterThyroid Stimulating Hormone (TSH) 2018-01-14 06:48:00* Test Item Value Reference Range Interpretation Comments Thyroid Stimulating Hormone (TSH) (test code = 04136-7) 2.234 0.350-4.940 [facility] Xzukfclmy9483-80-33 06:48:00* Test Item Value Reference Range Interpretation Comments Free Thyroxine (test code = 3024-7) 0.90 0.9-1.8 [facility] CenterThyroid Stimulating Hormone (TSH) 2018-01-14 06:48:00* Test Item Value Reference Range Interpretation Comments Thyroid Stimulating Hormone (TSH) (test code = 33883-6) 2.234 0.350-4.940 [facility] CenterFree Qonczvheo3272-52-42 06:48:00* Test Item Value Reference Range Interpretation Comments Free Thyroxine (test code = 3024-7) 0.90 0.9-1.8 [facility] CenterThyroid Stimulating Hormone (TSH) 2018-01-14 06:48:00* Test Item Value Reference Range Interpretation Comments Thyroid Stimulating Hormone (TSH) (test code = 58888-4) 2.234 0.350-4.940 [facility]odium Wmdzq5814-29-80 06:27:00* Test Item Value Reference Range Interpretation Comments Sodium Level (test code = 2951-2) 138 136-145 [facility] CenterPotassium Zybjg1649-79-55 06:27:00* Test Item Value Reference Range Interpretation Comments Potassium Level (test code = 2823-3) 3.7 3.5-5.1 [facility] CenterChloride Urhwk6777-02-73 06:27:00* Test Item Value Reference Range Interpretation Comments Chloride Level (test code = 2075-0) 105 98-107 [facility] CenterCarbon Dioxide Tdscy8313-11-38 06:27:00* Test Item Value Reference Range Interpretation Comments Carbon Dioxide Level (test code = 2028-9) 26 22- [facility] CenterAnion Vpt9161-55-38 06:27:00* Test Item Value Reference Range Interpretation Comments Anion Gap (test code = 36403-7) 10.7 8-16 [facility] CenterBlood Urea Ehfttvur1095-74-63 06:27:00* Test Item Value Reference Range Interpretation Comments Blood Urea Nitrogen (test code = 3094-0) 12 7-26 [facility] CenterCreatinine2018-11-24 06:27:00* Test Item Value Reference Range Interpretation Comments Creatinine (test code = 2160-0) 0.74 0.72-1.25 [facility] CenterBUN/Creatinine Obhco5882-99-57 06:27:00* Test Item Value Reference Range Interpretation Comments BUN/Creatinine Ratio (test code = 3097-3) 16 6-25 [facility] CenterEstimat Glomerular Filtration Rate 2018-01-14 06:27:00* Test Item Value Reference Range Interpretation Comments Estimat Glomerular Filtration Rate (test code = 548609422) > 60 >60 Ranges were taken from the National Kidney Disease Education Program and the [facility] Kid[facility] Foundation literature.Reference ranges:60 or greater: Hjyrny00-30 ( for 3 consecutive months): Chronic kidney disease 15 or less: Kidney failureSaint [facility]'s Medical CenterGlucose Wodby2777-17-71 06:27:00* Test Item Value Reference Range Interpretation Comments Glucose Level (test code = NDI4517) 106 74-118 [facility] CenterCalcium Nuxni4042-15-17 06:27:00* Test Item Value Reference Range Interpretation Comments Calcium Level (test code = 07701-0) 9.4 8.4-10.2 [facility] CenterTriglycerides Pxcaz8371-19-58 06:27:00* Test Item Value Reference Range Interpretation Comments Triglycerides Level (test code = 2571-8) 255 0-149 H [facility] CenterCholesterol Tnovo7364-50-87 06:27:00* Test Item Value Reference Range Interpretation Comments Cholesterol Level (test code = 2093-3) 177 0-199 Less than 200 mg/dL Low Qpsh990 - 239 mg/dL Borderline Kfsj331 m g/dl and greater High Risk [facility]LDL Gpodslwiqrc5488-85-49 06:27:00* Test Item Value Reference Range Interpretation Comments LDL Cholesterol (test code = 2089-1) 88 60-130 [facility]HDL Kyjdvtqsvxf8028-23-75 06:27:00* Test Item Value Reference Range Interpretation Comments HDL Cholesterol (test code = 2085-9) 38 40-60 L [facility] CenterCholesterol/HDL Yzjvm6235-62-22 06:27:00 * Test Item Value Reference Range Interpretation Comments Cholesterol/HDL Ratio (test code = 9830-1) 4.7 3.9-4.7 [facility] CenterTriglycerides Jmapu5025-65-51 06:27:00* Test Item Value Reference Range Interpretation Comments Triglycerides Level (test code = 2571-8) 255 0-149 H [facility] CenterCholesterol Ztodm0070-34-77 06:27:00* Test Item Value Reference Range Interpretation Comments Cholesterol Level (test code = 2093-3) 177 0-199 Less than 200 mg/dL Low Dzsf071 - 239 mg/dL Borderline Llnl719 m g/dl and greater High Risk [facility]LDL Ubxvikijroe1025-72-68 06:27:00* Test Item Value Reference Range Interpretation Comments LDL Cholesterol (test code = 2089-1) 88 60-130 [facility]HDL Cmnjdjwqnee7691-74-00 06:27:00* Test Item Value Reference Range Interpretation Comments HDL Cholesterol (test code = 2085-9) 38 40-60 L [facility] CenterCholesterol/HDL Vkfme7151-57-14 06:27:00 * Test Item Value Reference Range Interpretation Comments Cholesterol/HDL Ratio (test code = 9830-1) 4.7 3.9-4.7 [facility] CenterTriglycerides Jhuxm1415-74-96 06:27:00* Test Item Value Reference Range Interpretation Comments Triglycerides Level (test code = 2571-8) 255 0-149 H [facility] CenterCholesterol Bgaaj4433-16-09 06:27:00* Test Item Value Reference Range Interpretation Comments Cholesterol Level (test code = 2093-3) 177 0-199 Less than 200 mg/dL Low Hrvr267 - 239 mg/dL Borderline Ghcx835 m g/dl and greater High Risk [facility] CenterLDL Nfpmdaiotub5839-65-61 06:27:00* Test Item Value Reference Range Interpretation Comments LDL Cholesterol (test code = 2089-1) 88 60-130 [facility] Etfjgyygdca3741-24-79 06:27:00* Test Item Value Reference Range Interpretation Comments HDL Cholesterol (test code = 2085-9) 38 40-60 L [facility]Cholesterol/HDL Mnqwt2118-69-46 06:27:00 * Test Item Value Reference Range Interpretation Comments Cholesterol/HDL Ratio (test code = 9830-1) 4.7 3.9-4.7 [facility] CenterWhite Blood Dxjea7247-41-77 06:07:00* Test Item Value Reference Range Interpretation Comments White Blood Count (test code = 6690-2) 6.88 4.8-10.8 [facility] CenterRed Blood Xbhbo9478-68-87 06:07:00* Test Item Value Reference Range Interpretation Comments Red Blood Count (test code = 789-8) 4.64 4.3-5.7 [facility] CenterHemoglobin2018-11-24 06:07:00* Test Item Value Reference Range Interpretation Comments Hemoglobin (test code = 80989-4) 14.4 14.0-18.0 [facility] CenterHematocrit2018-11-24 06:07:00* Test Item Value Reference Range Interpretation Comments Hematocrit (test code = 4544-3) 41.6 38.2-49.6 [facility] CenterMean Corpuscular Jdcbql7292-76-41 06:07:00* Test Item Value Reference Range Interpretation Comments Mean Corpuscular Volume (test code = 787-2) 89.7 81-99 [facility] CenterMean Corpuscular Macxmhbjpx9951-88-55 06:07:00* Test Item Value Reference Range Interpretation Comments Mean Corpuscular Hemoglobin (test code = 785-6) 31.0 28-32 [facility] CenterMean Corpuscular Hemoglobin Concent 2018-01-14 06:07:00* Test Item Value Reference Range Interpretation Comments Mean Corpuscular Hemoglobin Concent (test code = 786-4) 34.6 31-35 [facility] CenterRed Cell Distribution Nonue7241-01-51 06:07:00* Test Item Value Reference Range Interpretation Comments Red Cell Distribution Width (test code = 94914-6) 13.0 11.7 -14.4 [facility] CenterPlatelet Ljkde0628-02-87 06:07:00* Test Item Value Reference Range Interpretation Comments Platelet Count (test code = 777-3) 112 140-360 L [facility] CenterNeutrophils (%) (Auto)2018-01-14 06:07:00 * Test Item Value Reference Range Interpretation Comments Neutrophils (%) (Auto) (test code = 92591-2) 62.2 38.7-80.0 [facility] CenterLymphocytes (%) (Auto)2018-01-14 06:07:00 * Test Item Value Reference Range Interpretation Comments Lymphocytes (%) (Auto) (test code = 736-9) 23.8 18.0-39.1 [facility] CenterMonocytes (%) (Auto)2018-01-14 06:07:00* Test Item Value Reference Range Interpretation Comments Monocytes (%) (Auto) (test code = 5905-5) 9.3 4.4-11.3 [facility] CenterEosinophils (%) (Auto)2018-01-14 06:07:00 * Test Item Value Reference Range Interpretation Comments Eosinophils (%) (Auto) (test code = 713-8) 3.9 0.0-6.0 [facility] CenterBasophils (%) (Auto)2018-01-14 06:07:00* Test Item Value Reference Range Interpretation Comments Basophils (%) (Auto) (test code = 706-2) 0.4 0.0-1.0 [facility] CenterIM GRANULOCYTES %2018-01-14 06:07:00* Test Item Value Reference Range Interpretation Comments IM GRANULOCYTES % (test code = IM GRANULOCYTES %) 0.4 0.0- 1.0 [facility] CenterNeutrophils # (Auto)2018-01-14 06:07:00* Test Item Value Reference Range Interpretation Comments Neutrophils # (Auto) (test code = 751-8) 4.3 2.1-6.9 [facility] CenterLymphocytes # (Auto)2018-01-14 06:07:00* Test Item Value Reference Range Interpretation Comments Lymphocytes # (Auto) (test code = 80051-8) 1.6 1.0-3.2 [facility] CenterMonocytes # (Auto)2018-01-14 06:07:00* Test Item Value Reference Range Interpretation Comments Monocytes # (Auto) (test code = 742-7) 0.6 0.2-0.8 [facility] CenterEosinophils # (Auto)2018-01-14 06:07:00* Test Item Value Reference Range Interpretation Comments Eosinophils # (Auto) (test code = 711-2) 0.3 0.0-0.4 [facility] CenterBasophils # (Auto)2018-01-14 06:07:00* Test Item Value Reference Range Interpretation Comments Basophils # (Auto) (test code = 704-7) 0.0 0.0-0.1 [facility] CenterAbsolute Immature Granulocyte (auto 2018-01-14 06:07:00* Test Item Value Reference Range Interpretation Comments Absolute Immature Granulocyte (auto (yuliana t code = Absolute Immature Granulocyte (auto) 0.03 0-0.1 [facility] CenterCreatine Kinase GW2315-65-60 01:36:00* Test Item Value Reference Range Interpretation Comments Creatine Kinase MB (test code = 55198-3) 2.70 0-5.0 [facility] CenterTroponin D0479-58-85 01:36:00* Test Item Value Reference Range Interpretation Comments Troponin I (test code = DWX7826) 0.007 0-0.300 [facility] CenterCreatine Dachnq6515-73-19 01:19:00* Test Item Value Reference Range Interpretation Comments Creatine Kinase (test code = 2157-6) 201 30-200 H [facility] CenterHemoglobin A1c Rqgftwr7623-44-54 16:08:00 * Test Item Value Reference Range Interpretation Comments Hemoglobin A1c Percent (test code = Hemoglobin A1c Percent) 5.1 4.0-7.0 [facility] CenterHemoglobin A1c Gpadgos3097-24-55 16:08:00 * Test Item Value Reference Range Interpretation Comments Hemoglobin A1c Percent (test code = Hemoglobin A1c Percent) 5.1 4.0-7.0 [facility] CenterHemoglobin A1c Thenjog4670-52-55 16:08:00 * Test Item Value Reference Range Interpretation Comments Hemoglobin A1c Percent (test code = Hemoglobin A1c Percent) 5.1 4.0-7.0 [facility] CenterMRA HEAD SC5355-47-93 14:26:00 [facility] [address] [address] Patient Name: ARIAN BLANCAS MR #: [id number] : 1935 Age/Sex: 82/M Req #: [id number] Adm Physician: MOHIT ROBLES MD Ordered by: REGINA BENAVIDEZ MD Report #: [id number] Location: MED/SURG Room/Bed: [facility] Procedure: [id number] M RI/MRA HEAD WO Exam Date: Exam Time: REPORT STATUS: Signed MRA NECK WOW, MRA HEAD WO HISTORY: Slurred speech, on balance COMPARISON: Concurrent brain M RI, head CT from earlier today TECHNIQUE: Axial noncontrast 2D cervical, coronal contrast enhanced cervical, and noncontrast axial 3D intracranial magnolia e-of-flight MRA images were obtained without contrast. Maximum intensity proje ction and coronal/sagittal reformatted images were created. Any cervical lo tid stenoses will be measured relative to the patent [place] vessel distal to t he stenosis. 15 mL of MultiHance intravenous contrast were administered. FINDINGS: CERVICAL MRA: Focal susceptibility artifacts along the upper r ight visceral space and from the ACDF obscure some details. Right Carotid : No gross flow abnormalities. Left Carotid: No flow abnormalities. Right vertebral artery: No flow abnormalities. Left vertebral artery: No flow abno rmalities. INTRACRANIAL MRA: Carotid arteries: No flow abnormaliti es in the intracranial internal carotid arteries. Normal A1 and M1 segments. Vertebrobasilar Circulation: Right vertebral artery: No flow abnormalities. Left vertebral artery: No flow abnormalities. Basilar artery: No flow ab normalities. Posterior cerebral arteries: No flow abnormalities. Normal Variants: ACom: Patent. PComs: Not visualized. Vertebral arteries: Left s lightly dominant IMPRESSION: No cervical or intracranial MRA abnormalitie s. Signed by: Dr. Jovanny Waterman M.D. on 01/13/2018 2:41 PM Dictate d By: JOVANNY WATERMAN MD 40 COPY TO: REGINA BENAVIDEZ MD MRA NECK RHV0117-29-15 14:26:00 [place] [address] Patient Name: ARIAN BLANCAS MR #: [id number] : 1935 Age/Sex: 82/M Req #: [id number] Adm Physician: MOHIT ROBLES MD Ordered by: REGINA BENAVIDEZ MD Report #: [id number] Location: MED/SURG Room/Bed: [facility] Procedure: [id number] M RI/MRA NECK WOW Exam Date: Exam Time: REPORT STATUS: Signed MRA NECK WOW, MRA HEAD WO HISTORY: Slurred speech, on balance COMPARISON: Concurrent brain MRI, head CT from earlier today TECHNIQUE: Axial noncontrast 2D cervical , coronal contrast enhanced cervical, and noncontrast axial 3D intracranial ti oj-mi-fknnea MRA images were obtained without contrast. Maximum intensity proj ection and coronal/sagittal reformatted images were created. Any cervical car otid stenoses will be measured relative to the patent [place] vessel distal to the stenosis. 15 mL of MultiHance intravenous contrast were administered. FINDINGS: CERVICAL MRA: Focal susceptibility artifacts along the upper right visceral space and from the ACDF obscure some details. Right Caroti d: No gross flow abnormalities. Left Carotid: No flow abnormalities. Righ t vertebral artery: No flow abnormalities. Left vertebral artery: No flow abn ormalities. INTRACRANIAL MRA: Carotid arteries: No flow abnormalit ies in the intracranial internal carotid arteries. Normal A1 and M1 segments. Vertebrobasilar Circulation: Right vertebral artery: No flow abnormalitie s. Left vertebral artery: No flow abnormalities. Basilar artery: No flow a bnormalities. Posterior cerebral arteries: No flow abnormalities. Sidra l Variants: ACom: Patent. PComs: Not visualized. Vertebral arteries: Left slightly dominant IMPRESSION: No cervical or intracranial MRA abnormaliti es. Signed by: Dr. Jovanny Waterman M.D. on 01/13/2018 2:41 PM Dictat ed By: JOVANNY WATERMAN MD 40 COPY TO: REGINA BENAVIDEZ MD MRI BRAIN RM1778-00-70 13:50:00 [place] [address] Patient Name: ARIAN BLANCAS MR #: [id number] : 1935 Age/Sex: 82/M Req #: [id number] Adm Physician: MOHIT ROBLES MD Ordered by: REGINA BENAVIDEZ MD Report #: [id number] Location: MED/SURG Room/Bed: [facility] Procedure: [id number] M RI/MRI BRAIN WO Exam Date: Exam Time: REPORT STATUS: Signed MRI BRAIN WO HIST ORY: Slurred speech, on balance COMPARISON: Head CT from earlier today TECHNIQUE: Sagittal T2, axial T2, axial T1, axial T2/FLAIR, axial gradient e cho, axial GRE, coronal T2/FLAIR MR images of the brain were obtained without contrast. DISCUSSION: Scalp/bone marrow: Unremarkable. Brain sulci: Mildly prominent. Ventricles: Mild compensatory dilatation. Extra-axial spa andrés: No masses or fluid collections. Parenchyma: A focal area of diffusio n restriction (bright on DWI, dark to isointense on ADC) is seen along the lef t inferolateral thalamus. This is compatible with acute ischemia. No other dif fusion restricting abnormalities are seen. Scattered T2/FLAIR hyperintense foc i throughout the supratentorial white matter are likely chronic microvascular ischemic changes. 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 Oth erwise, no mass or hemorrhage. Vessels: Normal flow voids in major arteries and veins. Sellar/Suprasellar region: No abnormalities. Craniocervical melia ction: ACDF changes are partially visualized. Incidental findings: Nonspecific scattered T2 hyperintense paranasal sinus mucosal thickening is most prominent in the right Sinus. IMPRESSION: 1. Focal acute ischemia along the left inferolateral thalamus. 2. Mild supratentorial chronic microvascular ischemic change. Mild generalized cerebral volume loss. 3. 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 Signed by: Dr. Jovanny Waterman M.D. on 8 2:04 PM Dictated By: JOVANNY WATERMAN MD 03 Transcribed By: VIVIANE on 01/13/181403 COPY TO: REGINA BENAVIDEZ MD CHEST SINGLE (PORTABLE)2018-01-13 12:01:00 [place] [address] Patient Name: ARIAN BLANCAS MR #: [id number] : 1935 Age/Sex: 82/M Req #: [id number] Adm Physician: MOHIT ROBLES MD Ordered by: REGINA BENAVIDEZ MD Report #: [id number] Location: [facility] Room/Bed: [place] [address] Procedure: [id number] D X/CHEST SINGLE (PORTABLE) Exam Date: 01/13/18 Exam T sabrina: 1128 REPORT STATUS: Signed EXAMINATION: CHEST SINGLE (PORTABLE) INDICATION: Chest pain. COMP ARISON: None FINDINGS: TUBES and LINES: None. LUNGS: Lungs a re well inflated. Lungs are clear. There is no evidence of pneumonia or pul monary edema. PLEURA: No pleural effusion or pneumothorax. HEART AND MEDIASTINUM: The thoracic aorta is tortuous and folded. The cardiac silhouett e is normal in size. BONES AND SOFT TISSUES: No acute osseous lesion. Low er cervical fusion hardware. UPPER ABDOMEN: No free air under the diaphra gm. IMPRESSION: No acute thoracic abnormality. Signed by: Dr Sun Burch M.D. on 01/13/2018 12:10 PM Dictated By: KIARA WARD MD, MD 1210 T ranscribed By: VIVIANE on 01/13/18 1210 COPY TO: REGINA BENAVIDEZ MD Urine CFZ8037-07-54 11:16:00* Test Item Value Reference Range Interpretation Comments Urine WBC (test code = 5821-4) 0-5 0-5 [facility] SYX5177-31-55 11:16:00* Test Item Value Reference Range Interpretation Comments Urine RBC (test code = 75237-4) 6-10 0-5 H [facility] CenterU[facility] Etaxupaw2060-83-50 11:16:00* Test Item Value Reference Range Interpretation Comments Urine Bacteria (test code = 68531-9) FEW NONE [facility] Epithelial Ruwil0674-80-12 11:16:00 * Test Item Value Reference Range Interpretation Comments Urine Epithelial Cells (test code = 70807-6) FEW NONE [facility] CenterU[facility] Djhei4106-84-20 11:13:00* Test Item Value Reference Range Interpretation Comments Urine Color (test code = 5778-6) YELLOW YELLOW [facility] CenterU[facility] Mscosnz3113-32-84 11:13:00* Test Item Value Reference Range Interpretation Comments Urine Clarity (test code = 55741-0) HAZY CLEAR [facility] CenterU[facility] Specific Tcxyjrq3971-63-60 11:13:00 * Test Item Value Reference Range Interpretation Comments Urine Specific [place] (test code = 5811-5) 1.005 1.010-1.02 5 L [facility] CenterU[facility] sE8470-97-40 11:13:00* Test Item Value Reference Range Interpretation Comments Urine pH (test code = 24967-9) 6 5-7 [facility] Leukocyte Ltqvyted4211-10-31 11:13:00* Test Item Value Reference Range Interpretation Comments Urine Leukocyte Esterase (test code = 5799-2) NEGATIVE NEGATIVE [facility] Center[facility] Nosoofn9832-23-09 11:13:00* Test Item Value Reference Range Interpretation Comments Urine Nitrite (test code = 75601-3) NEGATIVE NEGATIVE [facility] Lxsfzos8354-97-91 11:13:00* Test Item Value Reference Range Interpretation Comments Urine Protein (test code = 5804-0) NEGATIVE NEGATIVE [facility] Glucose (UA)2018-01-13 11:13:00* Test Item Value Reference Range Interpretation Comments Urine Glucose (UA) (test code = 2349-9) NEGATIVE NEGATIVE [facility] Center[facility] Zsvowyl9931-94-55 11:13:00* Test Item Value Reference Range Interpretation Comments Urine Ketones (test code = 82904-9) NEGATIVE NEGATIVE [facility] Pujqizxctjyj1923-71-11 11:13:00* Test Item Value Reference Range Interpretation Comments Urine Urobilinogen (test code = 53656-9) 0.2 0.2-1 [facility] Qelzxabqg5477-12-64 11:13:00* Test Item Value Reference Range Interpretation Comments Urine Bilirubin (test code = 1977-6) NEGATIVE NEGATIVE [facility] Ziakq9402-06-38 11:13:00* Test Item Value Reference Range Interpretation Comments Urine Blood (test code = 64242-3) 1+ NEGATIVE H [facility] CenterTotal Ytsulupxv6227-39-83 10:52:00* Test Item Value Reference Range Interpretation Comments Total Bilirubin (test code = 1974-2) 0.8 0.2-1.2 [facility] CenterAspartate Amino Transf (AST/SGOT) 2018-01-13 10:52:00* Test Item Value Reference Range Interpretation Comments Aspartate Amino Transf (AST/SGOT) (test code = Aspartate Amino Transf (AST/SGOT)) 34 5-34 [facility] CenterAlanine Aminotransferase (ALT/SGPT) 2018-01-13 10:52:00* Test Item Value Reference Range Interpretation Comments Alanine Aminotransferase (ALT/SGPT) (test code = 1742-6) 24 0-55 [facility] CenterTotal Bmixlxk5653-56-34 10:52:00* Test Item Value Reference Range Interpretation Comments Total Protein (test code = 2885-2) 7.6 6.5-8.1 [facility] CenterAlbumin2018-11-23 10:52:00* Test Item Value Reference Range Interpretation Comments Albumin (test code = 1751-7) 4.0 3.5-5.0 [facility] CenterGlobulin2018-11-23 10:52:00* Test Item Value Reference Range Interpretation Comments Globulin (test code = 40255-6) 3.6 2.3-3.5 H [facility] CenterAlbumin/Globulin Rxuye4691-69-58 10:52:00 * Test Item Value Reference Range Interpretation Comments Albumin/Globulin Ratio (test code = 1759-0) 1.1 0.8-2.0 [facility] CenterAlkaline Znlwgynkrnp4923-11-98 10:52:00* Test Item Value Reference Range Interpretation Comments Alkaline Phosphatase (test code = 6768-6) 54 40-150 [facility] CenterProthrombin Vsck3915-72-32 10:41:00* Test Item Value Reference Range Interpretation Comments Prothrombin Time (test code = 5902-2) 14.1 11.9-14.5 [facility] CenterProthromb Time International Ratio 2018-01-13 10:41:00* Test Item Value Reference Range Interpretation Comments Prothromb Time International Ratio (test code = 6301-6) 1.00 Oral Anticoagulant Therapy INR Values:1. Low Intensity Therapy 1.5 - 2.02 . Moderate Intensity Therapy 2.0 - 3.03. High Intensity Therapy(1) 2.5 - 3. 54. High Intensity Therapy(2) 3.0 - 4.05. Panic Value INR > 5.0 [facility] CenterActivated Partial Thromboplast Time 2018-01-13 10:41:00* Test Item Value Reference Range Interpretation Comments Activated Partial Thromboplast Time (test code = 61491-1) 33.8 23.8-35.5 [facility] CenterCT BRAIN YC1935 10:08:00 [place] [address] Patient Name: ARIAN BLANCAS MR #: [id number] : 1935 Age/Sex: 82/M Req #: [id number] Adm Physician: Ordered by: REGINA BENAVIDEZ MD Report #: [id number] Location: Room/Bed: Procedure: [id number] CT /CT BRAIN WO Exam Date: Exam Time: REPORT STATUS: Signed CT BRAIN WO HISTORY: Slurred speech, gait abnormality COMPARISON: None. TECHNIQUE: Non contrast axial scans were obtained from skull base to the vertex. Coronal and sagittal reconstructions obtained from the axial data. One or more of the fo sofieg dose reduction techniques were used: Automated exposure control, adjus tment of the mA and/or kV according to patient size, and/or utilization of ite rative reconstruction technique. DISCUSSION: Scalp/Skull: Unremarkable . Brain sulci: Mildly prominent. Ventricles: Mild compensatory dilatation. Extra-axial spaces: No masses or fluid collections. Carotid siphon and verte bral artery calcifications are present. Parenchyma: Small focal hypodens ity in the left inferolateral thalamus may be due to age indeterminate ischemi a. Mild periventricular white matter hypodensities are likely chronic microv ascular ischemic changes. There is an old right striatocapsular lacunar infarc t. Otherwise, no masses, hemorrhage, or large vascular territory acute infarct . Dural sinuses: No abnormal densities. Sellar/Suprasellar region: Intac t. Skull base: Intact. Incidental findings: None. IMPRESSION: 1. Sma ll focal hypodensity in the left inferolateral thalamus may be due to age inde terminate ischemia. 2. Otherwise, no acute intracranial abnormalities. 3. Mild supratentorial chronic microvascular ischemic change. Mild generalized ce rebral volume loss. 4. 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 Signed by: Dr. Jovanny Waterman M.D. on 01/13/2018 10:12 AM Dictated By: JOVANNY WATERMAN MD 1012 Tr anscribed By: VIVIANE on 01/13/18 1012 COPY TO: REGINA BENAVIDEZ MD HIP RIGHT 2-3 VW (+/- PELVIS) [place] [address] Patient Name: ARIAN BLANCAS MR #: [id number] : 1935 Age/Sex: 82/M Req #: [id number] Adm Physician: Ordered by: BOGDAN SUTTON MACHINE PECAN PICKER Report #: [id number] Location: ER Room/Bed: Procedure: DX/HIP RIGHT 2-3 VW (+/- P NOHEMI) Exam Date: Exam Time: REPORT STATUS: Signed PROCEDURE: HIP RIGHT 2-3 VW (+/- PELVIS) INDICATION: Pain COMP ARISON: None. FINDINGS: No acute, displaced fracture or dislocatio n. Femoral heads project appropriately over the acetabulum. Moderate narrowin g of the hip joint space with marginal acetabular osteophytosis. Sacroiliac j oints are maintained. Degenerative disc changes of the lower lumbar spine. CONCLUSION: No acute osseous abnormality. 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 Dictated by: Gianni Maldonado M.D. on 03/25 at 11:15 Electronically approved by: Gianni Maldonado M.D. on 8 at 11:15 Dictated By: GIANNI MALDONADO MD 1115 Transcribed By: HUNTER on 04/19/17 1115 COPY TO: BOGDAN SUTTON MACHINE PECAN PICKER CERVICAL SPINE 4 OR 5 VIEWS [place] [address] Patient Name: ARIAN BLANCAS MR #: [id number] : 1935 Age/Sex: 81/M Req #: [id number] Adm Physician: Ordered by: DEIDRE MERCADO MACHINE PECAN PICKER Report #: [id number] Location: ER Room/Bed: Procedure: [id number] DX/CERVICAL SPINE 4 OR 5 VIEWS Exam Date: 02/25/17 Exam Time: 1040 REP ORT STATUS: Signed PROCEDURE: C-SPINE COMPLETE COMPARISON: None. INDICATIONS: FALL, POSTERIOR NECK STIFFNESS FINDINGS: The later al view is visualized from the skull base to C7. The patient status post ante rior cervical discectomy and fusion from C3-C6. The hardware is intact withou t evidence of lucency surrounding the screws to suggest loosening. There is d isc space narrowing and endplate ossific lipping of C6-7 and C7-T1. Th e vertebral bodies are well-aligned. There are no [...] Degenerative changes as described above. Dictated by: Elaine Caputo M.D. on 02/25 at 11:47 Electronically approved by: Elaine Caputo M.D. on 02/25 at 11:47 Dictated By: ELAINE CAPUTO MD Electronical ly Signed By: ELAINE CAPUTO MD on 02/25/17 1147 Transcribed By: HUNTER on 1147 COPY TO: DEIDRE MERCADO NP SHOULDER LEFT COMPLETE [place] [address] Patient Name: ARIAN BLANCAS MR #: [id number] : 1935 Age/Sex: 81/M Req #: [id number] Adm Physicia n: Ordered by: DEIDRE MERCADO MACHINE PECAN PICKER Report #: [id number] Location: [facility]/Bed: Procedure: [id number] DX/SHOULDER LEFT COMPLET E Exam Date: 02/25/17 Exam Time: 1040 REPORT S TATUS: Signed PROCEDURE: X-RAY LEFT SHOULDER, COMPLETE COMPARISON: None. INDICATIONS: FALL, LEFT SHOULDER PAIN FINDINGS: BONES: Normal mineralization of the visualized osseous structures. No acute fracture or dislocation. There are degenerative changes of the a.c. joint. No significant changes on the glenohumeral joint. SOFT TISSUES: Negativ e. OTHER: A calcified granuloma in the lateral left upper lobe measures 5 mm. The aorta is ectatic. No evidence of pleural thickening, effusion, o r pneumothorax CONCLUSION: No acute traumatic pathology. Dictated by: Elaine Caputo M.D. on 02/25/2017 at 11:49 Electronica lly approved by: Elaine Caputo M.D. on 02/25/2017 at 11:49 Dictated By: ELAINE CAPUTO MD [id number] Transcribed By: HUNTER on 02/25/17 1149 COPY TO: DEIDRE YIP NP
--- NOTE | 2019-10-02 17:35 | Diagnostic Imaging Report ---
X-ray 3 views of the knee. HISTORY: Knee pain. COMPARISON: None available. FINDINGS: Bones/joints: No acute fracture or dislocation. There are tricompartmental degenerative changes characterized by joint space narrowing, subchondral sclerosis, subchondral cystic changes and marginal osteophytes. There is suprapatellar joint effusion and chondrocalcinosis. Soft tissues: Atherosclerotic vascular calcification. Otherwise no focal soft tissue abnormality. IMPRESSION: 1. No acute fracture or dislocation. 2. 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 3. Suprapatellar joint effusion. Signed by: Caterina Garcia MD on 10/02/2019 5:32 PM
--- NOTE | 2019-10-02 17:36 | Diagnostic Imaging Report ---
X-ray 3 views of the elbow. HISTORY: Elbow pain. COMPARISON: None available. FINDINGS: Bones/joints: No displaced fracture or dislocation identified. There is elbow joint effusion. Soft tissues: No focal soft tissue abnormality. IMPRESSION: Although no displaced fracture or dislocation identified, elbow joint effusion following trauma is suggestive of occult fracture, most likely radial head. Signed by: Caterina Garcia MD on 10/02/2019 5:33 PM
[2019-10-02 17:37] LABS: INR 0.92; PROTHROMBIN TIME 12.8 seconds (11.9-14.5)
[2019-10-02 17:38] LABS: PARTIAL THROMBOPLASTIN TIME 29.2 seconds (23.8-35.5)
[2019-10-02 17:46] LABS: ALANINE AMINOTRANSFERASE 35 IU/L (0-55); ALBUMIN 3.4 g/dL (3.5-5.0); ALKALINE PHOSPHATASE 42 IU/L (40-150); ANION GAP 10.5 mmol/L (8-16); BLOOD UREA NITROGEN 13 mg/dL (7-26); BUN/CREATININE RATIO 17 (6-25); CALCIUM 8.8 mg/dL (8.4-10.2); CARBON DIOXIDE 22 mmol/L (22-29); CHLORIDE 109 mmol/L (98-107); CREATINE KINASE 163 IU/L (30-200); CREATININE, SERUM 0.76 mg/dL (0.72-1.25); EST GLOMERULAR FILTRATION RATE > 60 ML/MIN (60-); GLUCOSE 91 mg/dL (74-118); POTASSIUM 3.5 mmol/L (3.5-5.1); SODIUM 138 mmol/L (136-145)
--- NOTE | 2019-10-02 17:50 | Diagnostic Imaging Report ---
EXAMINATION: Head CT HISTORY: Status post fall today before, forehead bruising COMPARISON: Head CT 11/13/2018 TECHNIQUE: Helical axial images of the head were obtained. Reformatted coronal and sagittal images from the axial data. Dose modulation, iterative reconstruction, and/or weight based adjustment of the mA/kV was utilized to reduce the radiation dose to as low as reasonably achievable. Image quality: Motion/streaking artifact limits the evaluation of the skull base and posterior cranial fossa. FINDINGS: Parenchyma: 1. Unchanged small chronic lacunar infarcts in the left thalamus, left subinsular region, right head of the caudate and bilateral lentiform nuclei. 2. Few scattered white matter hypodensities, most likely nonspecific chronic microvascular ischemic changes. 3. No mass or hemorrhage. No CT evidence of acute territorial vascular insult. Extra-axial spaces: Approximately 9 mm maximum thickness heterogeneous density mostly hyperdense left hemispheric convexity subdural hematoma with minimal local mass effect, there is no midline shift or herniation. Approximately 4 mm acute subdural hematoma is also seen along the interhemispheric fissure without mass effect or midline shift. Brain volume: Normal for age. Ventricles: No hydrocephalus or displacement. Arteries: No density suggestive of thrombus. Dural sinuses: No abnormal density. Foramen magnum: No mass, Chiari malformation, or basilar invagination. Sella: No obvious mass. Paranasal/mastoid sinuses: Imaged portions unremarkable. Skull/Scalp: No lytic or blastic lesions. No fractures. IMPRESSION: 1. Acute left hemispheric subdural hematoma without significant mass effect or midline shift at this time. 2. Small 4 mm acute subdural hematoma along the interhemispheric fissure without mass effect. 3. Unchanged multiple chronic lacunar a first compared to head CT of 11/13/2018 The findings were discussed with the ER physician Dr. Drake on 10/02/2019 at 5:40 PM. Signed by: Dr. Evelyn Glass M.D. on 10/02/2019 5:46 PM
--- NOTE | 2019-10-02 17:55 | Diagnostic Imaging Report ---
EXAMINATION: CT of the cervical spine HISTORY: Status post fall, swollen face, neck pain COMPARISON: None available TECHNIQUE: Multidetector helical axial images were obtained without contrast from the foramen magnum to T1. The images were reconstructed using bone and soft tissue algorithms and were viewed in axial, sagittal and coronal planes. Dose modulation, iterative reconstruction, and/or weight based adjustment of the mA/kV was utilized to reduce the radiation dose to as low as reasonably achievable. FINDINGS: Alignment: Straightening of the cervical lordosis which may be related to muscle spasm or positional. Soft tissues: Normal Vertebrae: Status post ACDF with solid interbody fusion from C3 to C6, no hardware failure, loosening or fracture. Degenerative changes: C1-C2: Degenerative changes without stenoses. C2-C3: Disc osteophyte complex formation, uncovertebral and facet arthrosis. Severe right and moderate left foraminal stenosis. Moderate canal stenosis. C3-C6: Solidly surgical fusion. Moderate foraminal stenoses at C3-C4 and C5-C6. C6-C7: Disc osteophyte complex formation, bilateral uncovertebral and facet arthrosis. Moderate right and severe left foraminal stenoses. Moderate spinal canal stenosis. C7-T1: Normal IMPRESSION: 1. No acute cervical spine postraumatic abnormalities. 2. Status post ACDF from C3 to C6 with solid interbody fusion, no hardware failure. 3. Chronic degenerative changes as detailed above. Note: Acute postraumatic spinal cord, vascular or ligamentous injuries cannot adequately be assessed by CT. Signed by: Dr. Evelyn Glass M.D. on 10/02/2019 5:51 PM
--- NOTE | 2019-10-02 17:59 | Diagnostic Imaging Report ---
EXAMINATION: CT of the face HISTORY: Status post fall, facial trauma, left facial swelling COMPARISON: None available TECHNIQUE: Multidetector helical axial images were acquired through the face without contrast and were reconstructed in bone and soft tissue algorithms. Images were viewed in multiplanar format. Dose modulation, iterative reconstruction, and/or weight based adjustment of the mA/kV was utilized to reduce the radiation dose to as low as reasonably achievable. FINDINGS: Bones: Unremarkable. Facial soft tissues: Prominent left forehead, temporal and periorbital soft tissue swelling/hematoma without underlying fractures. Paranasal sinuses and drainage pathways: The frontal, ethmoidal, sphenoid and maxillary sinuses are clear. The ostiomeatal units, fronto-nasal and spheno-ethmoidal recesses are clear. Orbits contents: The lenses are not visualized, likely from prior contrast surgery.. Nasal septum: Chronic left-sided deviation.. Anatomic variations: No significant anatomic variations. Dentition: No acute abnormality of the visualized teeth. Incidental findings: Partially visualized acute left hemispheric convexity subdural hematoma and cervical spine fusion, see separate dictations of head CT and cervical spine CT respectively performed the same day for further detail. IMPRESSION: 1. Prominent left frontotemporal and periorbital soft tissue swelling/hematoma without underlying fractures. 2. Partially visualized acute left hemisphere convexity subdural hematoma, please see dictation of PET/CT performed the same day for further detail. Signed by: Dr. Evelyn Glass M.D. on 10/02/2019 5:55 PM
--- NOTE | 2019-10-02 18:14 | NUR ---
[facility] CALLED FOR TRANSPORT
--- NOTE | 2019-10-02 18:28 | NUR ---
Posterior splint applied to L arm, sling applied.
--- NOTE | 2019-10-02 18:58 | NUR ---
Spoke to Jennifer Bertrand, pts daughter. Updated on POC and transfer to OSH for higher level of care.
--- NOTE | 2019-10-02 19:41 | NUR ---
[facility] HERE TO TRANSPORT PATIENT AT THIS TIME TO [facility].
[2019-10-02 19:46] VITALS: BP 127/81
== END 2019-10-02 19:54 | disposition other institution (70) ==
LOC: ER 16:00
DX: S06.5X0A Traumatic subdural hemorrhage without loss of consciousness, initial encounter (principal); S51.012A Laceration without foreign body of left elbow, initial encounter; M25.562 Pain in left knee; W19.XXXA Unspecified fall, initial encounter; I10 Essential (primary) hypertension; E78.5 Hyperlipidemia, unspecified; K21.9 Gastro-esophageal reflux disease without esophagitis; Z86.73 Personal history of transient ischemic attack (TIA), and cerebral infarction without residual deficits
CPT/HCPCS: 36415; 70450; 70486; 71046; 72125; 80053; 82550; 82553; 84484; 85025; 85610; 85730; 90714; 93005; 99285

== ENCOUNTER 2019-10-10 14:06 | Emergency (ER) | payer MEDICARE ==
[~2019-10-10] VITALS: Ht 167.6 cm; Wt 71.7 kg
--- NOTE | 2019-10-10 14:58 | Emergency Department Note ---
History of Present Illnes History of Present Illness Chief Complaint: General Medicine Complaints History of Present Illness This is a 84 year old male presents for weakness after a fall which resulted subarachnoid hemorrhage. Patient was seen by me approximately one week ago after a fall and was started subarachnoid hemorrhage and was transferred for neurosurgery consultation. Since then he has not regained his normal function. No acute change. Family is concerned that he is not improving. No new concerns since his fall. Historian: Patient Arrival Mode: Car Maritime Pilot Required: No Onset (how long ago): week(s) (1) Location: Whole body Quality: Weakness Radiation: Reports non-radiation Onset quality: sudden Duration (how long): week(s) (1) Timing of current episode: constant Progression: unchanged Chronicity: new Context: Reports recent illness (SAH) Relieving factors: none Exacerbating factors: none Associated symptoms: Reports denies other symptoms Past Medical/Family History Physician Review I have reviewed the patient's past medical and family history. Any updates have been documented here. Past Medical History Recent Fever: No Clinical Suspicion of Infectio: No New/Unexplained Change in Ment: No Past Medical History: Hypertension, CVA, GERD, Hyperlipedemia Other Medical History: BPH Past Surgical History: Appendectomy Other Surgery: NECK, PROSTATE, URETHRAL TURP Social History Smoking Cessation: Unknown if ever smoked Counseling Performed: No Alcohol Use: None Any Illegal Drug Use: No Other Last Tetanus: UNKNOWN Any Pre-Existing Lines (PICC,: No Review of Systems Review of Systems Constitutional: Reports no symptoms, Reports weakness (generalized) EENTM: Reports no symptoms Cardiovascular: Reports no symptoms Respiratory: Reports no symptoms Gastrointestinal: Reports no symptoms Genitourinary: Reports no symptoms Musculoskeletal: Reports no symptoms Integumentary: Reports no symptoms Neurological: Reports as per HPI, Reports headache, Reports weakness (WGeneralized) Psychological: Reports no symptoms Endocrine: Reports no symptoms Hematological/Lymphatic: Reports no symptoms Physical Exam Related Data Allergies: Coded Allergies: No Known Allergies (Unverified , 09/26/18) Triage Vital Signs Vital Signs Date Time Temp Pulse Resp B/P (MAP) Pulse Ox O2 Delivery O2 Flow Rate FiO2 10/10/19 14:14 98.7 88 19 122/92 97 Room Air Vital signs reviewed: Yes Physical Exam CONSTITUTIONAL Constitutional: Present well-developed, Present well-nourished HENT HENT: Present normocephalic, Present atraumatic, Present oropharynx clear/moist, Present nose normal, Present other (Left periorbital bruising) HENT L/R: Present left ext ear normal, Present right ext ear normal EYES Eyes: Reports PERRL, Reports conjunctivae normal NECK Neck: Present ROM normal PULMONARY Pulmonary: Present effort normal, Present breath sounds normal CARDIOVASCULAR Cardiovascular: Present regular rhythm, Present heart sounds normal, Present capillary refill normal, Present normal rate GASTROINTESTINAL Abdominal: Present soft, Present nontender, Present bowel sounds normal GENITOURINARY Genitourinary: Present exam deferred SKIN Skin: Present warm, Present dry MUSCULOSKELETAL Musculoskeletal: Present ROM normal NEUROLOGICAL Neurological: Present alert, Present oriented x 3, Present no gross motor or sensory deficits PSYCHOLOGICAL Psychological: Present mood/affect normal, Present judgement normal Assessment & Plan Medical Decision Making MDM 84-year-old male past history significant for recent traumatic subarachnoid hemorrhage who presents to the emergency department for continued weakness since his fall. Examination shows improving head trauma from his last visit. No focal neurologic deficits. CT head shows improving subarachnoid hemorrhage. I had a lengthy discussion with family about the expected disease time course and management. They will follow-up with their Doctor and scheduled head CT's and appointments. At this time I doubt a new or emergent process symptoms are likely secondary to his prior fall. Patient is appropriate for discharge. Patient is appropriate for discharge. Assessment & Plan Final Impression: (1) Weakness Depart Disposition: HOME, SELF-CARE Last Vital Signs Date Time Temp Pulse Resp B/P (MAP) Pulse Ox O2 Delivery O2 Flow Rate FiO2 10/10/19 14:51 98.4 87 20 140/85 99 Room Air Home Meds Active Scripts Tramadol Hcl (ULTRAM) 50 Mg Tablet, 50 MG PO Q6HR PRN for Mild Pain (1-3) or Fever>100.8, #12 TAB Prov:BYRON BAIRD, DO 08/06/19 Simvastatin (SIMVASTATIN) 40 Mg Tablet, 40 MG PO HS for 30 Days Prov:VLAD BARROS ORBITREAD OPERATOR 01/14/18 Aspirin (ASPIRIN ENTERIC COATED) 325 Mg Tabec, 325 MG PO QAM for 30 Days Prov:VLAD BARROS ORBITREAD OPERATOR 01/14/18 Reported Medications Latanoprost (LATANOPROST) 2.5 Ml Drops, 1 DROP OU HS, BOTTLE 01/13/18 Finasteride (FINASTERIDE) 5 Mg Tablet, 5 MG PO DAILY, #30 TAB 01/13/18 Omeprazole (OMEPRAZOLE) 40 Mg Capsule.dr, DAILY 01/13/18 Lisinopril (LISINOPRIL) 10 Mg Tablet, 40 MG PO DAILY, #30 TAB 01/13/18 AKOSUA LEWIS MD Oct 10, 2019 14:58
--- NOTE | 2019-10-10 15:26 | Diagnostic Imaging Report ---
CT BRAIN WO HISTORY: Subdural hematoma COMPARISON: Head CT 10/02/2019 and MRI of the brain 01/13/2018 Technique: Noncontrast axial scans were obtained from skull base to the vertex. Coronal and sagittal reconstructions obtained from the axial data. One or more of the following dose reduction techniques were used: Automated exposure control, adjustment of the mA and/or kV according to patient size, and/or utilization of iterative reconstruction technique. DISCUSSION: Scalp/Skull: Unremarkable. Brain sulci: Mildly prominent. Ventricles: Compensatory dilatation. Extra-axial spaces: Previously seen diffuse left hemispheric acute subdural hematoma has nearly completely resolved; a small amount of acute subdural hemorrhage remains along the left lateral temporal lobe. Small amount of subdural hemorrhage along the left falx and left tentorium has also resolved. Associated small right frontal and left frontoparietal subdural hygromas (measuring up to 5 mm in thickness on the right and 9 mm on the left) remain without significant mass effect. Trace subarachnoid hemorrhage is now seen along the left lateral occipital convexity and right superior parietal lobule. Otherwise, no masses. Carotid and vertebral artery calcifications are present. Parenchyma: Mild bilateral deep white matter hypodensity is likely chronic microvascular ischemic change. Old right striatocapsular and left inferolateral thalamic lacunar infarcts are present. Otherwise, no masses, hemorrhage, or large vascular territory acute infarct. Dural sinuses: No abnormal densities. Sellar/Suprasellar region: Intact. Skull base: Intact. Incidental findings: Bilateral ocular lens replacement. IMPRESSION: 1. Previously seen left hemispheric acute subdural hematoma (involving the left falx and tentorium) has nearly completely resolved; a small amount of acute subdural hemorrhage remains along the left lateral temporal lobe. Associated small right frontal and left frontoparietal subdural hygromas also remain. There is no significant mass effect. 2. Trace acute subarachnoid hemorrhage along the left lateral occipital convexity and right superior parietal lobule. 3. No other acute intracranial abnormalities. 4. Mild supratentorial chronic microvascular ischemic change. Mild generalized cerebral volume loss. 5. Old right striatocapsular and left thalamic lacunar infarcts. Signed by: Dr. Jovanny Waterman M.D. on 10/10/2019 3:23 PM
--- OUTSIDE RECORDS SUMMARY | 2019-10-10 16:53 | XMS REPORT | Clinical Summary ---
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
--- OUTSIDE RECORDS SUMMARY | 2019-10-10 16:54 | XMS REPORT | Continuity of Care Document ---
Author Author [facility] t Organization [facility] Address [address] [place] [address] Phone Unavailable Care Team Providers Care Vp Training Name Role Phone BREANNAFARIDEH PCP Dwain Drake Attphys Unavailable SANDHIR, Delvis MATTHEWS Attphys Unavailable REEMA, T TAPIA Attphys Unavailable MOHIT ROBLES Attphys Unavailable MELANIE ROBBINS Attphys Unavailable MANEEVESE, V SHAE Attphys Unavailable MOHIT ROBLES Admphys Unavailable Payers Payer Name Policy Type Policy Number Effective Date Expiration Date Delvis interiano [facility] [id number] 2008 00:00:00 [facility] [id number] 2008 00:00:00 [facility] Part B [id number] 2008 00:00 :00 [facility] Problems Condition Name Condition Details Condition Category Status Onset Date Resolution Date Last Treatment Date Treating Clinician Comments Source Hoarseness Hoarseness Disease Active 2016-11-02 00:00:00 [place] [facility] Vocal fold paralysis, right Vocal fold paralysis, right Disease Active 2016-11-02 00:00:00 Harish Capps Cerebrovascular accident (CVA) CVA (cerebrovascular accident) Problem Active [facility] Chest pain Chest pain Problem Active [facility] Subdural hematoma Problem Active [facility] Allergies, Adverse Reactions, Alerts This patient has no known allergies or adverse reactions. Social History Social Habit Start Date Stop Date Quantity Comments Source Sex Assigned At Su [facility] Alcohol intake 2016-12-02 00:00:00 2016-12-02 00:00:00 Current non-drinker of alcohol (finding) Harish Capps Smoking Status Start Date Stop Date Source Never smoker Harish fink Medications Ordered Medication Name Filled Medication Name Start Date Stop Da te Current Medication? Ordering Clinician Indication Dosage Frequency Signature (SIG) Comments Components Source Tramadol Hcl (Ultram) 50 Mg TABLET Tramadol Hcl (Ultram) 50 Mg TABLET 2019-08-06 11:29:00 Yes 50 Every 6 Ho urs as needed for Mild Pain (1-3) Or Fever>100.8 [facility] Aspirin (Aspirin Enteric Coated) 325 Mg TABEC Aspirin (Aspirin Enteric Coated) 325 Mg TABEC 2018-01-14 06:38:00 Yes 325 Every Morni ng [facility] Simvastatin Simvastatin 2018-01-14 06:38:00 Yes 40 B edtime [facility] sulfamethoxazole-trimethoprim (BACTRIM SS) 400-80 mg per tab let 2016-11-29 00:00:00 Yes [place] [facility] pravastatin (PRAVACHOL) 20 MG tablet 2016-10-25 00:00:00 Yes [place] [facility] omeprazole (PriLOSEC) 40 MG capsule 2016-10-25 00:00:00 Yes [place] [facility] finasteride (PROSCAR) 5 mg tablet 2016-10-01 00:00:00 [facility] (PRINIVIL,ZESTRIL) 40 mg tablet 2016-08-03 00:00:00 Yes [place] [facility] Finasteride Finasteride Yes 5 Daily [facility] Latanoprost Latanoprost Yes 1 Bedtime [facility] Lisinopril Lisinopril Yes 40 Daily [facility] Omeprazole Omeprazole Yes Daily [facility] Pravastatin Sodium Pravastatin Sodium 2018-01-14 00:00:00 No Daily [facility] Vital Signs Vital Name Observation Time Observation Value Comments Source Weight 2019-10-02 16:13:00 158 [lb_av] [facility] BMI (Body Mass Index) 2019-10-02 16:13:00 25.5 kg/m2 [facility] Body Temperature 2019-08-06 11:15:00 98.4 [degF] [facility] Weight 2019-08-06 08:54:00 158 [lb_av] [facility] BMI (Body Mass Index) 2019-08-06 08:54:00 25.5 kg/m2 [facility] Procedures Procedure Date / Time Performed Performing Clinician Sour e Computed tomography of cervical spine without contrast 2019-09-22 1 00:00:00 [facility] Computed tomography of brain without radiopaque contrast 2019-09 00:00:00 [facility] CT maxillofacial area wo contrast 2019-10-02 00:00:00 [facility] X-ray of chest, two views 2019-10-02 00:00:00 [facility] Plan of Care Planned Activity Planned Date Details Comments Source Future Scheduled Test 2019-10-23 00:00:00 INFLUENZA VACCINE [code = INFLUENZA VACCINE] [facility] Future Scheduled Test 2000 00:00:00 65+ PNEUMOCOCCAL V ACCINE (1 of 2 - PCV13) [code = 65+ PNEUMOCOCCAL VACCINE (1 of 2 - PCV13)] [facility] Future Scheduled Test 1985 00:00:00 SHINGLES VACCINES (#1) [code = SHINGLES VACCINES (#1)] [facility] Encounters Start Date/Time End Date/Time Encounter Type Admission Type [facility] Care Department Encounter ID Source 2019-10-02 16:00:00 2019-10-02 19:54:00 Departed Emergency Room 1 Akosua Drake [facility] [id number] [facility] 2019-10-02 21:29:00 2019-10-02 18:59:00 Inpatient E [facility] 2019-08-06 08:54:00 2019-08-06 11:43:00 Departed Emergency Room 1 BYRON BAIRD [facility] [id number] [facility] 2018-11-13 12:09:00 2018-11-13 18:25:00 Departed Emergency Room 1 BYRON LORENZ [facility] [id number] [facility] 2018-09-27 08:44:00 2018-09-27 10:49:00 Departed Emergency Room [facility] [id number] [facility] 2018-09-26 10:31:00 2018-09-26 15:02:00 Departed Emergency Room 1 REGINA BENAVIDEZ [facility] [id number] [facility] 2018-01-14 09:14:00 2018-01-14 13:45:00 Discharged Inpatient 1 MOHIT ROBLES [facility] [id number] [facility] 2017-04-19 09:44:00 2017-04-19 11:37:00 Departed Emergency Room ER MELANIE ROBBINS [facility] [id number] [facility] 2017-02-25 09:54:00 2017-02-25 14:07:00 Departed Emergency Room ER SHAE POND [facility] [id number] [facility] Results Test Description Test Time Test Comments Results Result Comments Source CT BRAIN WO 2019-10-10 15:05:00 [facility] [address] [place] [address] Patient Name: ARIAN BLANCAS SR MR #: [id number] : 1935 Age/Sex: 84/M Req #: [id number] Adm Physician: Ordered by: Akosua Drake MD Report #: [id number] Location: ER Room/Bed: Procedure: [id number] CT/CT BRAIN WO Exam Date: 10/10/19 Exam Time: 1430 REPORT STATUS: Signed CT BRAIN WO HISTORY: Subdural hematoma COMPARISON: Head CT 10/02/2019 and MRI of the brain 01/13/2018 Technique: Noncontrast axial scans were obtained from skull base to the vertex. Coronal and sagittal reconstructions obtained from the axial data. One or more of the following dose reduction techniques were used: Automated exposure control, adjustment of the mA and/or kV according to patient size, and/or utilization of iterative reconstruction technique. DISCUSSION: Scalp/Skull: Unremarkable. Brain sulci: Mildly prominent. Ventricles: Compensatory dilatation. Extra-axial spaces: Previously seen diffuse left hemispheric acute subdural hematoma has nearly completely resolved; a small amount of acute subdural hemorrhage remains along the left lateral temporal lobe. Small amount of subdural hemorrhage along the left falx and left tentorium has also resolved. Associated small right frontal and left frontoparietal subdural hygromas (measuring up to 5 mm in thickness on the right and 9 mm on the left) remain without significant mass effect. Trace subarachnoid hemorrhage is now seen along the left lateral occipital convexity and right superior parietal lobule. Otherwise, no masses. Carotid and vertebral artery calcifications are present. Parenchyma: Mild bilateral deep white matter hypodensity is likely chronic microvascular ischemic change. Old right striatocapsular and left inferolateral thalamic lacunar infarcts are present. Otherwise, no masses, hemorrhage, or large vascular territory acute infarct. Dural sinuses: No abnormal densities. Sellar/Suprasellar region: Intact. Skull base: Intact. Incidental findings: Bilateral ocular lens replacement. IMPRESSION: 1. Previously seen left hemispheric acute subdural hematoma (involving the left falx and tentorium) has nearly completely resolved; a small amount of acute subdural hemorrhage remains along the left lateral temporal lobe. Associated small right frontal and left frontoparietal subdural hygromas also remain. There is no significant mass effect. 2. Trace acute subarachnoid hemorrhage along the left lateral occipital convexity and right superior parietal lobule. 3. No other acute intracranial abnormalities. 4. Mild supratentorial chronic microvascular ischemic change. Mild generalized cerebral volume loss. 5. Old right striatocapsular and left thalamic lacunar infarcts. Signed by: Dr. Jovanny Waterman M.D. on 10/10/2019 3:23 PM Dictated By: JOVANNY WATERMAN MD 152 Transcribed By: VIVIANE on 10/10/19 1523 COPY TO: AKOSUA DRAKE MD CT MAXIO FAC/PARANAS WO 2019-10-02 17:52:00 [place] [address] Patient Name: ARIAN BLANCAS SR MR #: [id number] : 1935 Age/Sex: 84/M Req #: [id number] Adm Physician: Ordered by: Akosua Drake MD Report #: [id number] Location: ER Room/Bed: Procedure: [id number] CT/CT MAXIO FAC/PARANAS WO Exam Date: 10/02/19 Exam Time: 1647 REPORT STATUS: Signed EXAMINATION: CT of the face HISTORY: Status post fall, facial trauma, left facial swelling COMPARISON: None available TECHNIQUE: Multidetector helical axial images were acquired through the face without contrast and were reconstructed in bone and soft tissue algorithms. Images were viewed in multiplanar format. Dose modulation, iterative reconstruction, and/or weight based adjustment of the mA/kV was utilized to reduce the radiation dose to as low as reasonably achievable. FINDINGS: Bones: Unremarkable. Facial soft tissues: Prominent left forehead, temporal and periorbital soft tissue swelling/hematoma without underlying fractures. Paranasal sinuses and drainage pathways: The frontal, ethmoidal, sphenoid and maxillary sinuses are clear. The ostiomeatal units, fronto-nasal and spheno-ethmoidal recesses are clear. Orbits contents: The lenses are not visualized, likely from prior contrast surgery.. Nasal septum: Chronic left-sided deviation.. Anatomic variations: No significant anatomic variations. Dentition: No acute abnormality of the visualized teeth. Incidental findings: Partially visualized acute left hemispheric convexity subdural hematoma and cervical spine fusion, see separate dictations of head CT and cervical spine CT respectively performed the same day for further detail. IMPRESSION: 1. Prominent left frontotemporal and periorbital soft tissue swelling/hematoma without underlying fractures. 2. Partially visualized acute left hemisphere convexity subdural hematoma, please see dictation of PET/CT performed the same day for further detail. Signed by: Dr. Dia Glass M.D. on 10/02/2019 5:55 PM Dictated By: DIA GLASS MD 54 Transcribed By: VIVIANE on 10/02/191754 COPY TO: AKOSUA DRAKE MD CT CERVICAL SPINE WO 2019-10-02 17:47:00 [place] [address] Patient Name: ARIAN BLANCAS SR MR #: [id number] : 1935 Age/Sex: 84/M Req #: [id number] Adm Physician: Ordered by: Akosua Drake MD Report #: [id number] Location: ER Room/Bed: Procedure: [id number] CT/CT CERVICAL SPINE WO Exam Date: 10/02/19 Exam Time: 1647 REPORT STATUS: Signed EXAMINATION: CT of the cervical spine HISTORY: Status post fall, swollen face, neck pain COMPARISON: None available TECHNIQUE: Multidetector helical axial images were obtained without contrast from the foramen magnum to T1. The images were reconstructed using bone and soft tissue algorithms and were viewed in axial, sagittal and coronal planes. Dose modulation, iterative reconstruction, and/or weight based adjustment of the mA/kV was utilized to reduce the radiation dose to as low as reasonably achievable. FINDINGS: Alignment: Straightening of the cervical lordosis which may be related to muscle spasm or positional. Soft tissues: Normal Vertebrae: Status post ACDF with solid interbody fusion from C3 to C6, no hardware failure, loosening or fracture. Degenerative changes: C1-C2: Degenerative changes without stenoses. C2-C3: Disc osteophyte complex formation, uncovertebral and facet arthrosis. Severe right and moderate left foraminal stenosis. Moderate canal stenosis. C3-C6: Solidly surgical fusion. Moderate foraminal stenoses at C3-C4 and C5- C6. C6-C7: Disc osteophyte complex formation, bilateral uncovertebral and facet arthrosis. Moderate right and severe left foraminal stenoses. Moderate spinal canal stenosis. C7-T1: Normal IMPRESSION: 1. No acute cervical spine postraumatic abnormalities. 2. Status post ACDF from C3 to C6 with solid interbody fusion, no hardware failure. 3. Chronic degenerative changes as detailed above. Note: Acute postraumatic spinal cord, vascular or ligamentous injuries cannot adequately be assessed by CT. Signed by: Dr. Dia Glass M.D. on 10/02/2019 5:51 PM Dictated By: DIA GLASS MD 50 Transcribed By: VIVIANE on 10/02/191750 COPY TO: AKOSUA DRAKE MD CT BRAIN WO 2019-10-02 17:40:00 [place] [address] Patient Name: ARIAN BLANCAS SR MR #: [id number] : 1935 Age/Sex: 84/M Req #: [id number] Adm Physician: Ordered by: Akosua Drake MD Report #: [id number] Location: ER Room/Bed: Procedure: [id number] CT/CT BRAIN WO Exam Date: 10/02/19 Exam Time: 1647 REPORT STATUS: Signed EXAMINATION: Head CT HISTORY: Status post fall today before, forehead bruising COMPARISON: Head CT 11/13/2018 TECHNIQUE: Helical axial images of the head were obtained. Reformatted coronal and sagittal images from the axial data. Dose modulation, iterative reconstruction, and/or weight based adjustment of the mA/kV was utilized to reduce the radiation dose to as low as reasonably achievable. Image quality: Motion/streaking artifact limits the evaluation of the skull base and posterior cranial fossa. FINDINGS: Parenchyma: 1. Unchanged small chronic lacunar infarcts in the left thalamus, left subinsular region, right head of the caudate and bilateral lentiform nuclei. 2. Few scattered white matter hypodensities, most likely nonspecific chronic microvascular ischemic changes. 3. No mass or hemorrhage. No CT evidence of acute territorial vascular insult. Extra-axial spaces: Approximately 9 mm maximum thickness heterogeneous density mostly hyperdense left hemispheric convexity subdural hematoma with minimal local mass effect, there is no midline shift or herniation. Approximately 4 mm acute subdural hematoma is also seen along the interhemispheric fissure without mass effect or midline shift. Brain volume: Normal for age. Ventricles: No hydrocephalus or displacement. Arteries: No density suggestive of thrombus. Dural sinuses: No abnormal density. Foramen magnum: No mass, Chiari malformation, or basilar invagination. Sella: No obvious mass. Paranasal/mastoid sinuses: Imaged portions unremarkable. Skull/Scalp: No lytic or blastic lesions. No fractures. IMPRESSION: 1. Acute left hemispheric subdural hematoma without significant mass effect or midline shift at this time. 2. Small 4 mm acute subdural hematoma along the interhemispheric fissure without mass effect. 3. Unchanged multiple chronic lacunar a first compared to head CT of 11/13/2018 The findings were discussed with the ER physician Dr. Drake on 10/02/2019 at 5:40 PM. Signed by: Dr. Dia Glass M.D. on 10/02/2019 5:46 PM Dictated By: DIA GLASS MD 45 Transcribed By: VIVIANE on 10/02/191745 COPY TO: AKOSUA DRAKE MD KNEE LEFT THREE VIEWS 2019-10-02 17:29:00 [place] [address] Patient Name: ARIAN BLANCAS SR MR #: [id number] : 1935 Age/Sex: 84/M Req #: [id number] Adm Physician: Ordered by: Akosua Drake MD Report #: [id number] Location: ER Room/Bed: Procedure: [id number] DX/KNEE LEFT THREE VIEWS Exam Date: 10/02/19 Exam Time: 1648 REPORT STATUS: Signed X-ray 3 views of the knee. HISTORY: Knee pain. COMPARISON: None available. FINDINGS: Bones/joints: No acute fracture or dislocation. There are tricompartmental degenerative changes characterized by joint space narrowing, subchondral sclerosis, subchondral cystic changes and marginal osteophytes. There is suprapatellar joint effusion and chondrocalcinosis. Soft tissues: Atherosclerotic vascular calcification. Otherwise no focal soft tissue abnormality. IMPRESSION: 1. No acute fracture or dislocation. 2. 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 3. Suprapatellar joint effusion. Signed by: Chandni Gómez MD on 10/02/2019 5:32 PM Dictated By: CHANDNI GÓMEZ MD 31 Transcribed By: VIVIANE on 10/02/191731 COPY TO: AKOSUA DRAKE MD ELBOW LEFT COMPLETE 2019-10-02 17:25:00 [place] [address] Patient Name: ARIAN BLANCAS SR MR #: [id number] : 1935 Age/Sex: 84/M Req #: [id number] Adm Physician: Ordered by: Akosua Drake MD Report #: [id number] Location: ER Room/Bed: Procedure: [id number] DX/ELBOW LEFT COMPLETE Exam Date: 10/02/19 Exam Time: 1648 REPORT STATUS: Signed X-ray 3 views of the elbow. HISTORY: Elbow pain. COMPARISON: None available. FINDINGS: Bones/joints: No displaced fracture or dislocation identified. There is elbow joint effusion. Soft tissues: No focal soft tissue abnormality. IMPRESSION: Although no displaced fracture or dislocation identified, elbow joint effusion following trauma is suggestive of occult fracture, most likely radial head. Signed by: Chandni Gómez MD on 10/02/2019 5:33 PM Dictated By: CHANDNI GÓMEZ MD 32 Transcribed By: VIVIANE on 10/02/191732 COPY TO: AKOSUA DRAEK MD SHOULDER LEFT COMPLETE 2019-10-02 17:23:00 [place] [address] Patient Name: ARIAN BLANCAS SR MR #: [id number] : 1935 Age/Sex: 84/M [facility] #: [id number] Req #: [id number] [facility] Physician: Ordered by: Akosua Drake MD Report #: [id number] Location: ER Room/Bed: Procedure: [id number] DX/SHOULDER LEFT COMPLETE Exam Date: 10/02/19 Exam Time: 1647 REPORT STATUS: Signed ADDENDUM #1 2 views of the shoulder were obtained. Absence of an axillary or scapular Y view limits assessment for glenohumeral dislocation. If there is clinical suspicion for glenohumeral dislocation, recommend adding scapular Y or axillary view of the shoulder. Signed by: Chandni Gómez MD on 10/02/2019 5:34 PM ORIGINAL REPORT X-ray site and # of views HISTORY: [...] 5:25 PM Dictated By: CHANDNI GÓMEZ MD [id number] Transcribed By: VIVIANE on 10/02/191724 COPY TO: AKOSUA DRAKE MD CHEST 2 VIEWS 2019-10-02 17:22:00 [facility] [address] [place] [address] Patient Name: ARIAN BLANCAS SR MR #: [id number] : 1935 Age/Sex: 84/M Req #: [id number] Adm Physician: Ordered by: Akosua Drake MD Report #: [id number] Location: ER Room/Bed: Procedure: [id number] DX/CHEST 2 VIEWS Exam Date: 10/02/19 Exam Time: 8 REPORT STATUS: Signed EXAMINATION: CHEST 2 VIEWS [...] on 10/02/191722 COPY TO: AKOSUA DRAKE MD Blood leukocytes automated count (number/volume) 2019-10-02 17:15:00 Test Item White Blood Count (test code = 6690-2) 8.11 4.8-10.8 [facility] automated count (number/volume)2019-10-02 17:15:00* Test Item Value Reference Range Interpretation Comments Red Blood Count (test code = 789-8) 3.84 4.3-5.7 [facility] hemoglobin measurement (moles/volume)2019-10-02 17:15:00* Test Item Value Reference Range Interpretation Comments Hemoglobin (test code = 62107-4) 12.2 14.0-18.0 [facility] blood hematocrit (volume fraction)2019-10-02 17:15:00* Test Item Value Reference Range Interpretation Comments Hematocrit (test code = 4544-3) 37.3 38.2-49.6 [facility] erythrocyte mean corpuscular [id number] 17:15:00* Test Item Value Reference Range Interpretation Comments Mean Corpuscular Volume (test code = 787-2) 97.1 81-99 [facility] erythrocyte mean corpuscular hemoglobin (mass per erythrocyte)2019-10-02 17:15:00* Test Item Value Reference Range Interpretation Comments Mean Corpuscular Hemoglobin (test code = 785-6) 31.8 28-32 [facility]Autom[facility] erythrocyte mean corpuscular hemoglobin concentration measurement (mass/volume)2019-10-02 17:15:00* Test Item Value Reference Range Interpretation Comments Mean Corpuscular Hemoglobin Concent (test code = 786-4) 32.7 31-35 [facility] CampusRDW [id number] 17:15:00* Test Item Value Reference Range Interpretation Comments Red Cell Distribution Width (test code = 02594-3) 13.7 11.7 -14.4 [facility] blood platelet count (count/volume)2019-10-02 17:15:00* Test Item Value Reference Range Interpretation Comments Platelet Count (test code = 777-3) 137 140-360 [facility] neutrophil count as percentage of total [id number] 17:15:00* Test Item Value Reference Range Interpretation Comments Neutrophils (%) (Auto) (test code = 61596-4) 65.2 38.7-80.0 [facility] CampusAutom[facility] blood lymphocyte count as percentage ot total [id number] 17:15:00* Test Item Value Reference Range Interpretation Comments Lymphocytes (%) (Auto) (test code = 736-9) 23.2 18.0-39.1 [facility] CampusAutom[facility] blood monocyte count as percentage of total [id number] 17:15:00* Test Item Value Reference Range Interpretation Comments Monocytes (%) (Auto) (test code = 5905-5) 9.0 4.4-11.3 [facility]Autom[facility] blood eosinophil count as percentage of total [id number] 17:15:00* Test Item Value Reference Range Interpretation Comments Eosinophils (%) (Auto) (test code = 713-8) 1.5 0.0-6.0 [facility] blood basophil count as percentage of total [id number] 17:15:00* Test Item Value Reference Range Interpretation Comments Basophils (%) (Auto) (test code = 706-2) 0.2 0.0-1.0 [facility] CampusFluoroscopic procedure less than one hour [id number] 17:15:00* Test Item Value Reference Range Interpretation Comments IM GRANULOCYTES % (test code = IM GRANULOCYTES %) 0.9 0.0- 1.0 [facility] CampusAutom[facility] blood neutrophil count 2019-10-02 17:15:00* Test Item Value Reference Range Interpretation Comments Neutrophils # (Auto) (test code = 751-8) 5.3 2.1-6.9 [facility] lymphocytes count (number/volume) 2019-10-02 17:15:00* Test Item Value Reference Range Interpretation Comments Lymphocytes # (Auto) (test code = 77301-0) 1.9 1.0-3.2 [facility]Bl[facility] [place] monocytes automated count (number/volume)2019-10-02 17:15:00* Test Item Value Reference Range Interpretation Comments Monocytes # (Auto) (test code = 742-7) 0.7 0.2-0.8 [facility] CampusAutom[facility] blood eosinophil count 2019-10-02 17:15:00* Test Item Value Reference Range Interpretation Comments Eosinophils # (Auto) (test code = 711-2) 0.1 0.0-0.4 [facility] CampusAutom[facility] blood basophil count (count/volume)2019-10-02 17:15:00* Test Item Value Reference Range Interpretation Comments Basophils # (Auto) (test code = 704-7) 0.0 0.0-0.1 [facility] CampusFluoroscopic procedure less than one hour dbqawmko3050-47-81 17:15:00* Test Item Value Reference Range Interpretation Comments Absolute Immature Granulocyte (auto (yuliana t code = Absolute Immature Granulocyte (auto) 0.07 0-0.1 [facility] CampusProthrombin time (PT) in platelet poor plasma by coagulation wwobu9479-91-01 17:15:00* Test Item Value Reference Range Interpretation Comments Prothrombin Time (test code = 5902-2) 12.8 11.9-14.5 [facility] CampusINR in Platelet poor plasma by Coagulation orwys0948-17-35 17:15:00* Test Item Value Reference Range Interpretation Comments Prothromb Time International Ratio (test code = 6301-6) 0.92 Oral Anticoagulant Therapy INR Values:1. Low Intensity Therapy 1.5 - 2.02 . Moderate Intensity Therapy 2.0 - 3.03. High Intensity Therapy(1) 2.5 - 3. 54. High Intensity Therapy(2) 3.0 - 4.05. Panic Value INR > 5.0 [facility] CampusActivated partial thromboplastin time (aPTT) in platelet poor plasma by coagulation cjugs4592-87-97 17:15:00* Test Item Value Reference Range Interpretation Comments Activated Partial Thromboplast Time (test code = 24288-6) 29.2 23.8-35.5 [facility] or plasma sodium measurement (moles/volume)2019-10-02 17:15:00* Test Item Value Reference Range Interpretation Comments Sodium Level (test code = 2951-2) 138 136-145 [facility] or plasma potassium measurement (moles/volume)2019-10-02 17:15:00* Test Item Value Reference Range Interpretation Comments Potassium Level (test code = 2823-3) 3.5 3.5-5.1 [facility] or plasma chloride measurement (moles/volume)2019-10-02 17:15:00* Test Item Value Reference Range Interpretation Comments Chloride Level (test code = 2075-0) 109 98-107 [facility] or plasma carbon dioxide, total measurement (moles/volume)2019-10-02 17:15:00* Test Item Value Reference Range Interpretation Comments Carbon Dioxide Level (test code = 2028-9) 22 22-29 [facility] or plasma anion gyr9646-70-52 17:15:00* Test Item Value Reference Range Interpretation Comments Anion Gap (test code = 17122-6) 10.5 8-16 [facility] or plasma urea nitrogen measurement (mass/volume)2019-10-02 17:15:00* Test Item Value Reference Range Interpretation Comments Blood Urea Nitrogen (test code = 3094-0) 13 7-26 [facility] or plasma creatinine measurement (mass/volume)2019-10-02 17:15:00* Test Item Value Reference Range Interpretation Comments Creatinine (test code = 2160-0) 0.76 0.72-1.25 [facility] or plasma urea nitrogen/creatinine mass pbqmy2953-64-33 17:15:00* Test Item Value Reference Range Interpretation Comments BUN/Creatinine Ratio (test code = 3097-3) 17 6-25 [facility] CampusEstimated glomerular filtration rate (GFR) qalyqdmdausdr5379-69-53 17:15:00* Test Item Value Reference Range Interpretation Comments Estimat Glomerular Filtration Rate (test code = 465050185) > 60 >60 Ranges were taken from the National Kidney Disease Education Program and the [facility] literature.Reference ranges:60 or greater: Qanucv32-99 ( for 3 consecutive months): Chronic kidney disease 15 or less: Kidney failureNorth [facility] CampusGlucose lbicrfvszaw2731-86-95 17:15:00* Test Item Value Reference Range Interpretation Comments Glucose Level (test code = ZIQ1451) 91 74-118 [facility] or plasma calcium measurement (mass/volume)2019-10-02 17:15:00* Test Item Value Reference Range Interpretation Comments Calcium Level (test code = 90532-1) 8.8 8.4-10.2 [facility] or plasma total bilirubin measurement (mass/volume)2019-10-02 17:15:00* Test Item Value Reference Range Interpretation Comments Total Bilirubin (test code = 1975-2) 0.7 0.2-1.2 [facility] CampusFluoroscopic procedure less than one hour grzgzfch8808-79-40 17:15:00* Test Item Value Reference Range Interpretation Comments Aspartate Amino Transf (AST/SGOT) (test code = Aspartate Amino Transf (AST/SGOT)) 30 5-34 [facility] or plasma alanine aminotransferase measurement (enzymatic activity/volume)2019-10-02 17:15:00* Test Item Value Reference Range Interpretation Comments Alanine Aminotransferase (ALT/SGPT) (test code = 1742-6) 35 0-55 [facility] or plasma protein measurement (mass/volume)2019-10-02 17:15:00* Test Item Value Reference Range Interpretation Comments Total Protein (test code = 2885-2) 6.7 6.5-8.1 [facility] or plasma albumin measurement (mass/volume)2019-10-02 17:15:00* Test Item Value Reference Range Interpretation Comments Albumin (test code = 1751-7) 3.4 3.5-5.0 [facility] CampusPlasma globulin measurement (mass/volume) 2019-10-02 17:15:00* Test Item Value Reference Range Interpretation Comments Globulin (test code = 71218-4) 3.3 2.3-3.5 [facility] or plasma albumin/globulin mass vzgkc0271-51-85 17:15:00* Test Item Value Reference Range Interpretation Comments Albumin/Globulin Ratio (test code = 1759-0) 1.0 0.8-2.0 [facility] or plasma alkaline phosphatase measurement (enzymatic activity/volume)2019-10-02 17:15:00* Test Item Value Reference Range Interpretation Comments Alkaline Phosphatase (test code = 6768-6) 42 40-150 [facility] or plasma creatine kinase measurement (enzymatic activity/volume)2019-10-02 17:15:00* Test Item Value Reference Range Interpretation Comments Creatine Kinase (test code = 2157-6) 163 30-200 [facility] or plasma creatine kinase MB measurement (mass/volume)2019-10-02 17:15:00* Test Item Value Reference Range Interpretation Comments Creatine Kinase MB (test code = 65319-3) 3.80 0-5.0 [facility] CampusTroponin I measurement by highly sensitive enzyme tbdzvhjklbc4156-95-70 17:15:00* Test Item Value Reference Range Interpretation Comments Troponin I (test code = 87197-4) 0.003 0-0.300 [facility] CampusTIBIA-FIBULA YMFLAFTCX2905-35-25 11:06:00 [facility] [address] [place] [address] Patient Name: ARIAN BLANCAS MR #: [id number] : 1935 Age/Sex: 84/M Req #: [id number] Adm Physician: Ordered by: BYRON BAIRD DO Report #: [id number] Location: ANA M garcia/Bed: Procedure: [id number] DX/TIBIA- FIBULA BILATERAL Exam Date: 08/06/19 Exam Time: 0956 REPORT STATUS: Signed EXAM: TI ANJALI-FIBULA BILATERAL DATE: 08/06/2019 9:56 AM INDICATION: Pain COMPARISON: None FINDINGS: There is no evidence for acute fracture or di slocation. No focal lytic or blastic abnormality is identified. Mild plantar c alcaneal spurring noted bilaterally. Vascular calcifications are noted bilater ally. The surrounding soft tissues are otherwise unremarkable without evidence for radiopaque foreign body. IMPRESSION: No acute radiographic a bnormality identified within the bilateral tibias/fibulas. Signed by: Dr. Mahesh Sharif MD on 08/06/2019 11:08 AM Dictated By: MAHESH SHARIF MD Sisi ctronically Signed By: MAHESH SHARIF MD on 08/06/191107 Transcribed By: VIVIANE on 08/06/191107 COPY TO: BYRON BAIRD DO CT BRAIN WO 2018-11-13 17:41:00 [place] [address] Patient Name: ARIAN BLANCAS MR #: [id number] : 1935 Age/Sex: 83/M Req #: [id number] Adm Physician: Ordered by: DICK MIKE [employer] Report #: [id number] Location: ER Room/Bed: Procedure: [id number] C T/CT BRAIN WO Exam Date: 11/13/18 Exam Time: 1620 REPORT STATUS: Signed EXAMINATION: Head CT HISTORY: Dizziness COMPARISON: Head CT 01/13/2018 TECHNIQUE: Multidetector axial images were obtained without contrast from the foramen mag num to the vertex . The images were reconstructed using brain and bone algorit hms. Thin section brain images were reformatted into coronal and sagittal fatimah jose manuel. Image quality: Motion/streaking artifact limits the evaluation of the sku ll base and posterior cranial fossa. Dose modulation, iterative reconstructi on, and/or weight based adjustment of the mA/kV was utilized to reduce the rad iation dose to as low as reasonably achievable. FINDINGS: Jim rico: 1. Persistent mild chronic microvascular ischemic changes. 2. 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 3. No mass or hemorrha ge. No CT evidence of acute territorial vascular insult. Extra- axial spaces:No abnormal density. No extra-axial fluid collections Brain volume: Normal for age. Ventricles: No hydrocephalus or displacement. Arteries: No density suggestive of thrombus. Dural sinuses: No a bnormal density. Extra-axial spaces: No abnormal density. Forame n magnum: No mass, Chiari malformation, or basilar invagination. Sella: No obvious mass. Paranasal/mastoid sinuses: Imaged portions unremarkabl e. Skull/Scalp: No lytic or blastic lesions. No fractures. IMPRES IMANI: 1. No acute intracranial hemorrhage or cortical infarcts. 2. Stab le mild chronic microvascular ischemic changes. 3. Unchanged small chronic la cunar compared to head CT of 01/13/2018. Signed by: Ron Hurley 11/13/2018 5:43 PM Dictated By: DIA GLASS MD 42 Transcribed By: VIVIANE on 11/13/181742 COPY TO: DICK MIKE [employer]ER Creatine Kinase [id number] 14:29:00* Test Item Value Reference Range Interpretation Comments Creatine Kinase MB (test code = 00445-8) 1.70 0-5.0 [facility] CampusTroponin X1618-09-37 14:29:00* Test Item Value Reference Range Interpretation Comments Troponin I (test code = VLQ3193) < 0.001 0-0.300 [facility] CampusABDOMEN-1VIEW (KUB)2018-11-13 14:20:00 [place] [address] Patient Name: ARIAN BLANCAS MR #: [id number] : 1935 Age/Sex: 83/M Req #: [id number] Adm Physician: Ordered by: DICK MIKE NP Report #: [id number] Location: ER Room/Bed: Procedure: [id number] D X/ABDOMEN-1VIEW (KUB) Exam Date: 11/13/18 Exam [...] PM Dict ated By: JANKI DINH MD 142 Transcribed By: VIVIANE on 11/13/18 1421 COPY TO: DICK MIKE NP Sodium Pcjzc7655-68-16 14:19:00* Test Item Value Reference Range Interpretation Comments Sodium Level (test code = 2951-2) 139 136-145 [facility] CampusPotassium Lemyi6809-78-88 14:19:00* Test Item Value Reference Range Interpretation Comments Potassium Level (test code = 2823-3) 3.7 3.5-5.1 [facility] CampusChloride Wzhso8147-24-01 14:19:00* Test Item Value Reference Range Interpretation Comments Chloride Level (test code = 2075-0) 104 98-107 [facility] CampusCarbon Dioxide Ufyrf0885-20-77 14:19:00* Test Item Value Reference Range Interpretation Comments Carbon Dioxide Level (test code = 2028-9) 27 22-29 [facility] CampusAnion Mey2334-58-58 14:19:00* Test Item Value Reference Range Interpretation Comments Anion Gap (test code = 83656-4) 11.7 8-16 [facility] CampusBlood Urea Gebingqv9957-70-55 14:19:00* Test Item Value Reference Range Interpretation Comments Blood Urea Nitrogen (test code = 3094-0) 8 7-26 [facility] CampusCreatinine2019-09-23 14:19:00* Test Item Value Reference Range Interpretation Comments Creatinine (test code = 2160-0) 0.86 0.72-1.25 [facility] CampusBUN/Creatinine Tryml9872-50-42 14:19:00* Test Item Value Reference Range Interpretation Comments BUN/Creatinine Ratio (test code = 3097-3) 9 6- [facility] CampusEstimat Glomerular Filtration Rate 2018-11-13 14:19:00* Test Item Value Reference Range Interpretation Comments Estimat Glomerular Filtration Rate (test code = 828941618) > 60 >60 Ranges were taken from the National Kidney Disease Education Program and the [facility] Foundation literature.Reference ranges:60 or greater: Vxmgin88-04 ( for 3 consecutive months): Chronic kidney disease 15 or less: Kidney failureNorth [facility] CampusGlucose Dzcpj1318-98-40 14:19:00* Test Item Value Reference Range Interpretation Comments Glucose Level (test code = VQB7872) 98 74-118 [facility] CampusCalcium Wqrrh9103-96-29 14:19:00* Test Item Value Reference Range Interpretation Comments Calcium Level (test code = 19655-1) 10.0 8.4-10.2 [facility] CampusTotal Leqvzdltz2610-28-82 14:19:00* Test Item Value Reference Range Interpretation Comments Total Bilirubin (test code = 1975-2) 1.2 0.2-1.2 [facility] CampusAspartate Amino Transf (AST/SGOT) 2018-11-13 14:19:00* Test Item Value Reference Range Interpretation Comments Aspartate Amino Transf (AST/SGOT) (test code = Aspartate Amino Transf (AST/SGOT)) 48 5-34 H [facility] CampusAlanine Aminotransferase (ALT/SGPT) 2018-11-13 14:19:00* Test Item Value Reference Range Interpretation Comments Alanine Aminotransferase (ALT/SGPT) (test code = 1742-6) 36 0-55 [facility] CampusTotal Fshxfvu2506-37-88 14:19:00* Test Item Value Reference Range Interpretation Comments Total Protein (test code = 2885-2) 7.6 6.5-8.1 [facility] CampusAlbumin2019-09-23 14:19:00* Test Item Value Reference Range Interpretation Comments Albumin (test code = 1751-7) 3.8 3.5-5.0 [facility] CampusGlobulin2019-09-23 14:19:00* Test Item Value Reference Range Interpretation Comments Globulin (test code = 75016-6) 3.8 2.3-3.5 H [facility] CampusAlbumin/Globulin Awweg4148-35-02 14:19:00 * Test Item Value Reference Range Interpretation Comments Albumin/Globulin Ratio (test code = 1759-0) 1.0 0.8-2.0 [facility] CampusAlkaline Hfqayroslzb2541-15-62 14:19:00* Test Item Value Reference Range Interpretation Comments Alkaline Phosphatase (test code = 6768-6) 72 40-150 [facility] CampusCreatine Mpkkqa4845-23-44 14:19:00* Test Item Value Reference Range Interpretation Comments Creatine Kinase (test code = 2157-6) 110 30-200 [facility] CampusCHEST SINGLE (PORTABLE)2018-11-13 14:18:00 [place] [address] Patient Name: ARIAN BLANCAS MR #: [id number] : 1935 Age/Sex: 83/M Req #: [id number] Adm Physician: Ordered by: DICK MIKE [employer]ER Report #: [id number] Location: ER Room/Bed: Procedure: [id number] D X/CHEST SINGLE (PORTABLE) Exam Date: 11/13/18 [...] 2:20 PM Dictated By: JANKI DINH MD 142 Transcribed By: VIVIANE on 11/13/18 1420 COPY TO: DICK MIKE [employer]ORER Urine WBC 2018-11-13 14:15:00* Test Item Value Reference Range Interpretation Comments Urine WBC (test code = 5821-4) 0-5 0-5 [facility] CampusUrine VII8900-66-45 14:15:00* Test Item Value Reference Range Interpretation Comments Urine RBC (test code = 30082-6) NONE 0-5 [facility] CampusUrine Oaxnnsjd1923-72-67 14:15:00* Test Item Value Reference Range Interpretation Comments Urine Bacteria (test code = 40825-2) FEW NONE [facility] CampusUrine Epithelial Asxgv9121-30-99 14:15:00 * Test Item Value Reference Range Interpretation Comments Urine Epithelial Cells (test code = 31978-2) MODERATE NONE [facility] CampusUrine Calcium Oxalate Vanbauck5782-36-00 14:15:00* Test Item Value Reference Range Interpretation Comments Urine Calcium Oxalate Crystals (test code = 5774-5) FEW FE W [facility] CampusProthrombin Lbnz8541-61-38 14:11:00* Test Item Value Reference Range Interpretation Comments Prothrombin Time (test code = 5902-2) 14.1 11.9-14.5 [facility] CampusProthromb Time International Ratio 2018-11-13 14:11:00* Test Item Value Reference Range Interpretation Comments Prothromb Time International Ratio (test code = 6301-6) 1.04 Oral Anticoagulant Therapy INR Values:1. Low Intensity Therapy 1.5 - 2.02 . Moderate Intensity Therapy 2.0 - 3.03. High Intensity Therapy(1) 2.5 - 3. 54. High Intensity Therapy(2) 3.0 - 4.05. Panic Value INR > 5.0 [facility] CampusActivated Partial Thromboplast Time 2018-11-13 14:11:00* Test Item Value Reference Range Interpretation Comments Activated Partial Thromboplast Time (test code = 43336-2) 36.2 23.8-35.5 H [facility] CampusUrine Gwicf1901-85-13 14:07:00* Test Item Value Reference Range Interpretation Comments Urine Color (test code = 5778-6) YELLOW YELLOW [facility] CampusUrine Xuusjvy7705-53-82 14:07:00* Test Item Value Reference Range Interpretation Comments Urine Clarity (test code = 45920-0) SL CLOUDY CLEAR H [facility] CampusUrine Specific Tlamvoh4568-37-65 14:07:00 * Test Item Value Reference Range Interpretation Comments Urine Specific Ephraim (test code = 5811-5) <=1.005 1.010-1.02 5 [facility] CampusUrine fN6941-07-36 14:07:00* Test Item Value Reference Range Interpretation Comments Urine pH (test code = 76109-2) 7 5-7 [facility] CampusUrine Leukocyte Ugerbnkj0220-39-78 14:07:00* Test Item Value Reference Range Interpretation Comments Urine Leukocyte Esterase (test code = 34362-4) NEGATIVE NEGATIV E [facility] CampusUrine Bmeucwo4942-17-17 14:07:00* Test Item Value Reference Range Interpretation Comments Urine Nitrite (test code = 58094-7) NEGATIVE NEGATIVE [facility] CampusUrine Dzbpvsi6335-70-52 14:07:00* Test Item Value Reference Range Interpretation Comments Urine Protein (test code = 38266-2) NEGATIVE NEGATIVE [facility] CampusUrine Glucose (UA)2018-11-13 14:07:00* Test Item Value Reference Range Interpretation Comments Urine Glucose (UA) (test code = 00635-2) NEGATIVE NEGATIVE [facility] CampusUrine Wmysuxa1603-26-14 14:07:00* Test Item Value Reference Range Interpretation Comments Urine Ketones (test code = 04308-5) NEGATIVE NEGATIVE [facility] CampusUrine Jelzpfdoyeqb4936-45-04 14:07:00* Test Item Value Reference Range Interpretation Comments Urine Urobilinogen (test code = 04100-3) 0.2 0.2-1 [facility] CampusUrine Awdjvioaz4760-58-59 14:07:00* Test Item Value Reference Range Interpretation Comments Urine Bilirubin (test code = 1977-8) NEGATIVE NEGATIVE [facility] CampusUrine Ambbg1606-59-71 14:07:00* Test Item Value Reference Range Interpretation Comments Urine Blood (test code = 91378-9) NEGATIVE NEGATIVE [facility] CampusWhite Blood Aoocx1308-19-57 14:05:00* Test Item Value Reference Range Interpretation Comments White Blood Count (test code = 6690-2) 5.59 4.8-10.8 [facility] CampusRed Blood Kzogi5734-60-62 14:05:00* Test Item Value Reference Range Interpretation Comments Red Blood Count (test code = 789-8) 4.78 4.3-5.7 [facility] CampusHemoglobin2019-09-23 14:05:00* Test Item Value Reference Range Interpretation Comments Hemoglobin (test code = 69144-5) 14.3 14.0-18.0 [facility] CampusHematocrit2019-09-23 14:05:00* Test Item Value Reference Range Interpretation Comments Hematocrit (test code = 4544-3) 44.1 38.2-49.6 [facility] CampusMean Corpuscular Kexkdo8634-42-77 14:05:00* Test Item Value Reference Range Interpretation Comments Mean Corpuscular Volume (test code = 787-2) 92.3 81-99 [facility] CampusMean Corpuscular Wkhzhadjmf4322-84-07 14:05:00* Test Item Value Reference Range Interpretation Comments Mean Corpuscular Hemoglobin (test code = 785-6) 29.9 28-32 [facility] CampusMean Corpuscular Hemoglobin Concent 2018-11-13 14:05:00* Test Item Value Reference Range Interpretation Comments Mean Corpuscular Hemoglobin Concent (test code = 786-4) 32.4 31-35 [facility] CampusRed Cell Distribution Dfpfj4108-65-51 14:05:00* Test Item Value Reference Range Interpretation Comments Red Cell Distribution Width (test code = 24964-3) 12.8 11.7 -14.4 [facility] CampusPlatelet Xsxlo2490-58-58 14:05:00* Test Item Value Reference Range Interpretation Comments Platelet Count (test code = 777-3) 129 140-360 L [facility] CampusNeutrophils (%) (Auto)2018-11-13 14:05:00 * Test Item Value Reference Range Interpretation Comments Neutrophils (%) (Auto) (test code = 25086-3) 60.3 38.7-80.0 [facility] CampusLymphocytes (%) (Auto)2018-11-13 14:05:00 * Test Item Value Reference Range Interpretation Comments Lymphocytes (%) (Auto) (test code = 736-9) 28.4 18.0-39.1 [facility] CampusMonocytes (%) (Auto)2018-11-13 14:05:00* Test Item Value Reference Range Interpretation Comments Monocytes (%) (Auto) (test code = 5905-5) 7.5 4.4-11.3 [facility] CampusEosinophils (%) (Auto)2018-11-13 14:05:00 * Test Item Value Reference Range Interpretation Comments Eosinophils (%) (Auto) (test code = 713-8) 3.2 0.0-6.0 [facility] CampusBasophils (%) (Auto)2018-11-13 14:05:00* Test Item Value Reference Range Interpretation Comments Basophils (%) (Auto) (test code = 706-2) 0.4 0.0-1.0 [facility] CampusIM GRANULOCYTES %2018-11-13 14:05:00* Test Item Value Reference Range Interpretation Comments IM GRANULOCYTES % (test code = IM GRANULOCYTES %) 0.2 0.0- 1.0 [facility] CampusNeutrophils # (Auto)2018-11-13 14:05:00* Test Item Value Reference Range Interpretation Comments Neutrophils # (Auto) (test code = 751-8) 3.4 2.1-6.9 [facility] CampusLymphocytes # (Auto)2018-11-13 14:05:00* Test Item Value Reference Range Interpretation Comments Lymphocytes # (Auto) (test code = 81827-5) 1.6 1.0-3.2 [facility] CampusMonocytes # (Auto)2018-11-13 14:05:00* Test Item Value Reference Range Interpretation Comments Monocytes # (Auto) (test code = 742-7) 0.4 0.2-0.8 [facility] CampusEosinophils # (Auto)2018-11-13 14:05:00* Test Item Value Reference Range Interpretation Comments Eosinophils # (Auto) (test code = 711-2) 0.2 0.0-0.4 [facility] CampusBasophils # (Auto)2018-11-13 14:05:00* Test Item Value Reference Range Interpretation Comments Basophils # (Auto) (test code = 704-7) 0.0 0.0-0.1 [facility] CampusAbsolute Immature Granulocyte (auto 2018-11-13 14:05:00* Test Item Value Reference Range Interpretation Comments Absolute Immature Granulocyte (auto (yuliana t code = Absolute Immature Granulocyte (auto) 0.01 0-0.1 [facility] CampusBlchildren[facility] [place] leukocytes automated count (number/volume)2018-11-13 13:36:00* Test Item Value Reference Range Interpretation Comments White Blood Count (test code = 6690-2) 5.59 4.8-10.8 [facility] CampusBlood erythrocytes automated count (number/volume)2018-11-13 13:36:00* Test Item Value Reference Range Interpretation Comments Red Blood Count (test code = 789-8) 4.78 4.3-5.7 [facility] CampusBlood hemoglobin measurement (moles/volume)2018-11-13 13:36:00* Test Item Value Reference Range Interpretation Comments Hemoglobin (test code = 81630-5) 14.3 14.0-18.0 [facility] CampusAutomated blood hematocrit (volume fraction)2018-11-13 13:36:00* Test Item Value Reference Range Interpretation Comments Hematocrit (test code = 4544-3) 44.1 38.2-49.6 [facility] CampusAutomated erythrocyte mean corpuscular opjyjv5817-04-02 13:36:00* Test Item Value Reference Range Interpretation Comments Mean Corpuscular Volume (test code = 787-2) 92.3 81-99 [facility] CampusAutomated erythrocyte mean corpuscular hemoglobin (mass per erythrocyte)2018-11-13 13:36:00* Test Item Value Reference Range Interpretation Comments Mean Corpuscular Hemoglobin (test code = 785-6) 29.9 28-32 [facility] CampusAutomated erythrocyte mean corpuscular hemoglobin concentration measurement (mass/volume)2018-11-13 13:36:00* Test Item Value Reference Range Interpretation Comments Mean Corpuscular Hemoglobin Concent (test code = 786-4) 32.4 31-35 [facility] CampusRDW HghKx-Bkt9197-91-23 13:36:00* Test Item Value Reference Range Interpretation Comments Red Cell Distribution Width (test code = 74893-2) 12.8 11.7 -14.4 [facility] CampusAutomated blood platelet count (count/volume)2018-11-13 13:36:00* Test Item Value Reference Range Interpretation Comments Platelet Count (test code = 777-3) 129 140-360 [facility] CampusAutomated blood segmented neutrophil count as percentage of total ytxifzceof7290-70-51 13:36:00* Test Item Value Reference Range Interpretation Comments Neutrophils (%) (Auto) (test code = 55155-5) 60.3 38.7-80.0 [facility] CampusAutomated blood lymphocyte count as percentage ot total iakqsxzhfd1228-97-09 13:36:00* Test Item Value Reference Range Interpretation Comments Lymphocytes (%) (Auto) (test code = 736-9) 28.4 18.0-39.1 [facility] CampusAutomated blood monocyte count as percentage of total qilltahhdw4226-36-81 13:36:00* Test Item Value Reference Range Interpretation Comments Monocytes (%) (Auto) (test code = 5905-5) 7.5 4.4-11.3 [facility] CampusAutomated blood eosinophil count as percentage of total kvuhnrnutn4404-68-67 13:36:00* Test Item Value Reference Range Interpretation Comments Eosinophils (%) (Auto) (test code = 713-8) 3.2 0.0-6.0 [facility] CampusAutomated blood basophil count as percentage of total aroxvteapy6558-73-41 13:36:00* Test Item Value Reference Range Interpretation Comments Basophils (%) (Auto) (test code = 706-2) 0.4 0.0-1.0 [facility] CampusFluoroscopic procedure less than one hour syingzsw8029-83-17 13:36:00* Test Item Value Reference Range Interpretation Comments IM GRANULOCYTES % (test code = IM GRANULOCYTES %) 0.2 0.0- 1.0 [facility] CampusAutomated blood neutrophil count 2018-11-13 13:36:00* Test Item Value Reference Range Interpretation Comments Neutrophils # (Auto) (test code = 751-8) 3.4 2.1-6.9 [facility] CampusBlood lymphocytes count (number/volume) 2018-11-13 13:36:00* Test Item Value Reference Range Interpretation Comments Lymphocytes # (Auto) (test code = 39920-9) 1.6 1.0-3.2 [facility] CampusBlood monocytes automated count (number/volume)2018-11-13 13:36:00* Test Item Value Reference Range Interpretation Comments Monocytes # (Auto) (test code = 742-7) 0.4 0.2-0.8 [facility] CampusAutomated blood eosinophil count 2018-11-13 13:36:00* Test Item Value Reference Range Interpretation Comments Eosinophils # (Auto) (test code = 711-2) 0.2 0.0-0.4 [facility] CampusAutomated blood basophil count (count/volume)2018-11-13 13:36:00* Test Item Value Reference Range Interpretation Comments Basophils # (Auto) (test code = 704-7) 0.0 0.0-0.1 [facility] CampusFluoroscopic procedure less than one hour ebdkvxle2626-50-50 13:36:00* Test Item Value Reference Range Interpretation Comments Absolute Immature Granulocyte (auto (yuliana t code = Absolute Immature Granulocyte (auto) 0.01 0-0.1 [facility] CampusProthrombin time (PT) in platelet poor plasma by coagulation qqnvz2891-27-16 13:36:00* Test Item Value Reference Range Interpretation Comments Prothrombin Time (test code = 5902-2) 14.1 11.9-14.5 [facility] CampusINR in Platelet poor plasma by Coagulation dvxzk1638-13-61 13:36:00* Test Item Value Reference Range Interpretation Comments Prothromb Time International Ratio (test code = 6301-6) 1.04 Oral Anticoagulant Therapy INR Values:1. Low Intensity Therapy 1.5 - 2.02 . Moderate Intensity Therapy 2.0 - 3.03. High Intensity Therapy(1) 2.5 - 3. 54. High Intensity Therapy(2) 3.0 - 4.05. Panic Value INR > 5.0 [facility] CampusActivated partial thromboplastin time (aPTT) in platelet poor plasma by coagulation nxrdx6540-90-86 13:36:00* Test Item Value Reference Range Interpretation Comments Activated Partial Thromboplast Time (test code = 36377-7) 36.2 23.8-35.5 [facility] or plasma sodium measurement (moles/volume)2018-11-13 13:36:00* Test Item Value Reference Range Interpretation Comments Sodium Level (test code = 2951-2) 139 136-145 [facility]um or plasma potassium measurement (moles/volume)2018-11-13 13:36:00* Test Item Value Reference Range Interpretation Comments Potassium Level (test code = 2823-3) 3.7 3.5-5.1 [facility]um or plasma chloride measurement (moles/volume)2018-11-13 13:36:00* Test Item Value Reference Range Interpretation Comments Chloride Level (test code = 2075-0) 104 98-107 [facility]um or plasma carbon dioxide, total measurement (moles/volume)2018-11-13 13:36:00* Test Item Value Reference Range Interpretation Comments Carbon Dioxide Level (test code = 2028-9) 27 22-29 [facility]um or plasma anion dvw5970-51-29 13:36:00* Test Item Value Reference Range Interpretation Comments Anion Gap (test code = 23547-3) 11.7 8-16 [facility] or plasma urea nitrogen measurement (mass/volume)2018-11-13 13:36:00* Test Item Value Reference Range Interpretation Comments Blood Urea Nitrogen (test code = 3094-0) 8 7-26 [facility] or plasma creatinine measurement (mass/volume)2018-11-13 13:36:00* Test Item Value Reference Range Interpretation Comments Creatinine (test code = 2160-0) 0.86 0.72-1.25 [facility]um or plasma urea nitrogen/creatinine mass edzup0310-43-67 13:36:00* Test Item Value Reference Range Interpretation Comments BUN/Creatinine Ratio (test code = 3097-3) 9 6-25 [facility] CampusEstimated glomerular filtration rate (GFR) gcasngmotjcrm9848-57-56 13:36:00* Test Item Value Reference Range Interpretation Comments Estimat Glomerular Filtration Rate (test code = 113915574) > 60 >60 Ranges were taken from the National Kidney Disease Education Program and the [facility]ney Foundation literature.Reference ranges:60 or greater: Wjclvj60-03 ( for 3 consecutive months): Chronic kidney disease 15 or less: Kidney failureNorth [facility] CampusGlucose zslkxnmpeca6332-35-23 13:36:00* Test Item Value Reference Range Interpretation Comments Glucose Level (test code = YVL2327) 98 74-118 [facility] or plasma calcium measurement (mass/volume)2018-11-13 13:36:00* Test Item Value Reference Range Interpretation Comments Calcium Level (test code = 48298-4) 10.0 8.4-10.2 [facility]um or plasma total bilirubin measurement (mass/volume)2018-11-13 13:36:00* Test Item Value Reference Range Interpretation Comments Total Bilirubin (test code = 1975-2) 1.2 0.2-1.2 [facility] CampusFluoroscopic procedure less than one hour zjuimfwe1645-99-13 13:36:00* Test Item Value Reference Range Interpretation Comments Aspartate Amino Transf (AST/SGOT) (test code = Aspartate Amino Transf (AST/SGOT)) 48 5-34 [facility]um or plasma alanine aminotransferase measurement (enzymatic activity/volume)2018-11-13 13:36:00* Test Item Value Reference Range Interpretation Comments Alanine Aminotransferase (ALT/SGPT) (test code = 1742-6) 36 0-55 [facility] or plasma protein measurement (mass/volume)2018-11-13 13:36:00* Test Item Value Reference Range Interpretation Comments Total Protein (test code = 2885-2) 7.6 6.5-8.1 [facility] or plasma albumin measurement (mass/volume)2018-11-13 13:36:00* Test Item Value Reference Range Interpretation Comments Albumin (test code = 1751-7) 3.8 3.5-5.0 [facility] CampusPlasma globulin measurement (mass/volume) 2018-11-13 13:36:00* Test Item Value Reference Range Interpretation Comments Globulin (test code = 37268-8) 3.8 2.3-3.5 [facility] or plasma albumin/globulin mass oowfv0345-93-34 13:36:00* Test Item Value Reference Range Interpretation Comments Albumin/Globulin Ratio (test code = 1759-0) 1.0 0.8-2.0 [facility] or plasma alkaline phosphatase measurement (enzymatic activity/volume)2018-11-13 13:36:00* Test Item Value Reference Range Interpretation Comments Alkaline Phosphatase (test code = 6768-6) 72 40-150 [facility] or plasma creatine kinase measurement (enzymatic activity/volume)2018-11-13 13:36:00* Test Item Value Reference Range Interpretation Comments Creatine Kinase (test code = 2157-6) 110 30-200 [facility]um or plasma creatine kinase MB measurement (mass/volume)2018-11-13 13:36:00* Test Item Value Reference Range Interpretation Comments Creatine Kinase MB (test code = 87944-5) 1.70 0-5.0 [facility] CampusTroponin I measurement by highly sensitive enzyme kvmvbggeigp7566-96-71 13:36:00* Test Item Value Reference Range Interpretation Comments Troponin I (test code = 63233-2) < 0.001 0-0.300 [facility] CampusUrine color jeyvcbnbqnxhd0708-35-52 13:30:00* Test Item Value Reference Range Interpretation Comments Urine Color (test code = 5778-6) YELLOW YELLOW [facility] CampusUrine rmtmkrj3122-12-81 13:30:00* Test Item Value Reference Range Interpretation Comments Urine Clarity (test code = 97888-9) SL CLOUDY CLEAR [facility] Dallaspecific gravity of Urine by Test strip 2018-11-13 13:30:00* Test Item Value Reference Range Interpretation Comments Urine Specific Ephraim (test code = 5811-5) <=1.005 1.010-1.02 5 [facility] CampusUrine pH measurement by automated test uqduz1828-93-29 13:30:00* Test Item Value Reference Range Interpretation Comments Urine pH (test code = 98737-5) 7 5-7 [facility] CampusUrine leukocyte esterase detection by automated test gprqr9477-06-90 13:30:00* Test Item Value Reference Range Interpretation Comments Urine Leukocyte Esterase (test code = 07889-6) NEGATIVE NEGATIV E [facility] CampusUrine nitrite detection by automated test xfbaj7235-91-06 13:30:00* Test Item Value Reference Range Interpretation Comments Urine Nitrite (test code = 13065-7) NEGATIVE NEGATIVE [facility] CampusUrine protein detection by automated test ttioy6585-67-34 13:30:00* Test Item Value Reference Range Interpretation Comments Urine Protein (test code = 35186-1) NEGATIVE NEGATIVE [facility] CampusUrine glucose detection by automated test pqquz2884-23-47 13:30:00* Test Item Value Reference Range Interpretation Comments Urine Glucose (UA) (test code = 96081-8) NEGATIVE NEGATIVE [facility] CampusUrine ketones detection by automated test mewqr8281-03-29 13:30:00* Test Item Value Reference Range Interpretation Comments Urine Ketones (test code = 06631-9) NEGATIVE NEGATIVE [facility] CampusUrine urobilinogen measurement by test strip (mass/volume)2018-11-13 13:30:00* Test Item Value Reference Range Interpretation Comments Urine Urobilinogen (test code = 35933-0) 0.2 0.2-1 [facility] CampusUrine total bilirubin waajpvort2340-02-97 13:30:00* Test Item Value Reference Range Interpretation Comments Urine Bilirubin (test code = 1977-8) NEGATIVE NEGATIVE [facility] CampusUrine erythrocytes brqtjhjgw8384-39-37 13:30:00* Test Item Value Reference Range Interpretation Comments Urine Blood (test code = 43046-3) NEGATIVE NEGATIVE [facility] CampusAutomated urine sediment leukocyte count by microscopy (number/high power field)2018-11-13 13:30:00* Test Item Value Reference Range Interpretation Comments Urine WBC (test code = 5821-4) 0-5 0-5 [facility] CampusErythrocytes detection in urine sediment by light dzmuakwhmf8893-45-64 13:30:00* Test Item Value Reference Range Interpretation Comments Urine RBC (test code = 95800-8) NONE 0-5 [facility] CampusBacteria detection in urine sediment by light iiuijycbzo1645-21-56 13:30:00* Test Item Value Reference Range Interpretation Comments Urine Bacteria (test code = 74451-4) FEW NONE [facility] CampusEpithelial cells detection in urine sediment by light fdtkfpwjns7004-14-37 13:30:00* Test Item Value Reference Range Interpretation Comments Urine Epithelial Cells (test code = 19086-7) MODERATE NONE [facility] CampusCalcium oxalate crystals detection in urine sediment by light zctnrmqthf4716-07-60 13:30:00* Test Item Value Reference Range Interpretation Comments Urine Calcium Oxalate Crystals (test code = 5774-5) FEW FE W [facility] CampusDifferential Total Cells Counted 2018-09-27 09:59:00* Test Item Value Reference Range Interpretation Comments Differential Total Cells Counted (test code = Differen tial Total Cells Counted) 100 [facility] CampusNeutrophils % (Manual)2018-09-27 09:59:00 * Test Item Value Reference Range Interpretation Comments Neutrophils % (Manual) (test code = 84185-4) 73 40-74 [facility] CampusBand Neutrophils %2018-09-27 09:59:00* Test Item Value Reference Range Interpretation Comments Band Neutrophils % (test code = 764-1) 7 [facility] CampusLymphocytes % (Manual)2018-09-27 09:59:00 * Test Item Value Reference Range Interpretation Comments Lymphocytes % (Manual) (test code = 737-7) 12 19-48 L [facility] CampusMonocytes % (Manual)2018-09-27 09:59:00* Test Item Value Reference Range Interpretation Comments Monocytes % (Manual) (test code = 744-3) 7 3.4-9.0 [facility] CampusEosinophils % (Manual)2018-09-27 09:59:00 * Test Item Value Reference Range Interpretation Comments Eosinophils % (Manual) (test code = 714-6) 1 0-7 [facility] CampusPlatelet Hscjvhpx5395-45-25 09:59:00* Test Item Value Reference Range Interpretation Comments Platelet Estimate (test code = 74326-7) SLIGHTLY DECREASED [facility] CampusPlatelet Morphology Brwfwcn0029-78-49 09:59:00* Test Item Value Reference Range Interpretation Comments Platelet Morphology Comment (test code = 63538-3) NORMAL [facility] CampusRed Cell Morphology Mkztvuo3595-11-01 09:59:00* Test Item Value Reference Range Interpretation Comments Red Cell Morphology Comment (test code = 6742-1) NORMAL [facility] CampusMagnesium Mlrfk8866-78-96 09:59:00* Test Item Value Reference Range Interpretation Comments Magnesium Level (test code = 28036-9) 2.2 1.3-2.1 H [facility] CampusDifferential Total Cells Counted 2018-09-27 09:59:00* Test Item Value Reference Range Interpretation Comments Differential Total Cells Counted (test code = [place] tial Total Cells Counted) 100 [facility] CampusNeutrophils % (Manual)2018-09-27 09:59:00 * Test Item Value Reference Range Interpretation Comments Neutrophils % (Manual) (test code = 23519-1) 73 40-74 [facility] CampusBand Neutrophils %2018-09-27 09:59:00* Test Item Value Reference Range Interpretation Comments Band Neutrophils % (test code = 764-1) 7 [facility] CampusLymphocytes % (Manual)2018-09-27 09:59:00 * Test Item Value Reference Range Interpretation Comments Lymphocytes % (Manual) (test code = 737-7) 12 19-48 L [facility] CampusMonocytes % (Manual)2018-09-27 09:59:00* Test Item Value Reference Range Interpretation Comments Monocytes % (Manual) (test code = 744-3) 7 3.4-9.0 [facility] CampusEosinophils % (Manual)2018-09-27 09:59:00 * Test Item Value Reference Range Interpretation Comments Eosinophils % (Manual) (test code = 714-6) 1 0-7 [facility] CampusPlatelet Sbkhckfk6064-04-86 09:59:00* Test Item Value Reference Range Interpretation Comments Platelet Estimate (test code = 36254-6) SLIGHTLY DECREASED [facility] CampusPlatelet Morphology Qdphqbj8484-93-78 09:59:00* Test Item Value Reference Range Interpretation Comments Platelet Morphology Comment (test code = 60287-2) NORMAL [facility] CampusRed Cell Morphology Sllrzjp9957-45-03 09:59:00* Test Item Value Reference Range Interpretation Comments Red Cell Morphology Comment (test code = 6742-1) NORMAL [facility] CampusMagnesium Upclg0423-54-18 09:59:00* Test Item Value Reference Range Interpretation Comments Magnesium Level (test code = 37655-5) 2.2 1.3-2.1 H [facility] CampusUrine [id number] 09:55:00* Test Item Value Reference Range Interpretation Comments Urine WBC (test code = 5821-4) 6-10 0-5 H [facility] CampusUrine [id number] 09:55:00* Test Item Value Reference Range Interpretation Comments Urine RBC (test code = 41223-3) 0-5 0-5 [facility] CampusUrine Btayijpr1476-29-55 09:55:00* Test Item Value Reference Range Interpretation Comments Urine Bacteria (test code = 92202-1) MODERATE NONE H [facility] CampusUrine Epithelial Fegyn9104-36-16 09:55:00 * Test Item Value Reference Range Interpretation Comments Urine Epithelial Cells (test code = 85564-0) MODERATE NONE [facility] CampusUrine Hyaline Nakpu5400-92-62 09:55:00* Test Item Value Reference Range Interpretation Comments Urine Hyaline Casts (test code = 48288-0) 0-1 0-1 [facility] CampusUrine Topmz1167-31-73 09:55:00* Test Item Value Reference Range Interpretation Comments Urine Mucus (test code = 8247-9) MODERATE RARE H [facility] CampusUrine Hyaline Shblw0786-98-25 09:55:00* Test Item Value Reference Range Interpretation Comments Urine Hyaline Casts (test code = 58388-6) 0-1 0-1 [facility] CampusUrine Lgdue1342-45-58 09:55:00* Test Item Value Reference Range Interpretation Comments Urine Mucus (test code = 8247-9) MODERATE RARE H [facility] Dallasodium Qwjpe8951-23-16 09:52:00* Test Item Value Reference Range Interpretation Comments Sodium Level (test code = 2951-2) 140 136-145 [facility] CampusPotassium Ziomu4197-60-28 09:52:00* Test Item Value Reference Range Interpretation Comments Potassium Level (test code = 2823-3) 3.7 3.5-5.1 [facility] CampusChloride Fzbqx7685-25-12 09:52:00* Test Item Value Reference Range Interpretation Comments Chloride Level (test code = 2075-0) 111 98-107 H [facility] CampusCarbon Dioxide Jqffp6118-99-56 09:52:00* Test Item Value Reference Range Interpretation Comments Carbon Dioxide Level (test code = 2028-9) 20 22-29 L [facility] CampusAnion Uyy7655-19-31 09:52:00* Test Item Value Reference Range Interpretation Comments Anion Gap (test code = 33127-3) 12.7 8-16 [facility] CampusBlood Urea Dyydries3013-18-17 09:52:00* Test Item Value Reference Range Interpretation Comments Blood Urea Nitrogen (test code = 3094-0) 11 7-26 [facility] CampusCreatinine2019-08-07 09:52:00* Test Item Value Reference Range Interpretation Comments Creatinine (test code = 2160-0) 0.76 0.72-1.25 [facility] CampusBUN/Creatinine Ubzgc0697-15-49 09:52:00* Test Item Value Reference Range Interpretation Comments BUN/Creatinine Ratio (test code = 3097-3) 14 6-25 [facility] CampusEstimat Glomerular Filtration Rate 2018-09-27 09:52:00* Test Item Value Reference Range Interpretation Comments Estimat Glomerular Filtration Rate (test code = 059967595) > 60 >60 Ranges were taken from the National Kidney Disease Education Program and the [facility] literature.Reference ranges:60 or greater: Vazdst86-89 ( for 3 consecutive months): Chronic kidney disease 15 or less: Kidney failureNorth [facility] CampusGlucose Lmhdl9156-50-25 09:52:00* Test Item Value Reference Range Interpretation Comments Glucose Level (test code = LOQ4703) 89 74-118 [facility] CampusCalcium Brxqb6978-03-63 09:52:00* Test Item Value Reference Range Interpretation Comments Calcium Level (test code = 26947-1) 8.9 8.4-10.2 [facility] CampusTotal Jximnfsbg9061-86-68 09:52:00* Test Item Value Reference Range Interpretation Comments Total Bilirubin (test code = 1975-2) 1.0 0.2-1.2 [facility] CampusAspartate Amino Transf (AST/SGOT) 2018-09-27 09:52:00* Test Item Value Reference Range Interpretation Comments Aspartate Amino Transf (AST/SGOT) (test code = Aspartate Amino Transf (AST/SGOT)) 47 5-34 H [facility] CampusAlanine Aminotransferase (ALT/SGPT) 2018-09-27 09:52:00* Test Item Value Reference Range Interpretation Comments Alanine Aminotransferase (ALT/SGPT) (test code = 1742-6) 31 0-55 [facility] CampusTotal Ggssoil1958-03-25 09:52:00* Test Item Value Reference Range Interpretation Comments Total Protein (test code = 2885-2) 6.6 6.5-8.1 [facility] CampusAlbumin2019-08-07 09:52:00* Test Item Value Reference Range Interpretation Comments Albumin (test code = 1751-7) 3.5 3.5-5.0 [facility] CampusGlobulin2019-08-07 09:52:00* Test Item Value Reference Range Interpretation Comments Globulin (test code = 79684-8) 3.1 2.3-3.5 [facility] CampusAlbumin/Globulin Ivfiz7908-97-61 09:52:00 * Test Item Value Reference Range Interpretation Comments Albumin/Globulin Ratio (test code = 1759-0) 1.1 0.8-2.0 [facility] CampusAlkaline Lincrlrgqwo6738-19-58 09:52:00* Test Item Value Reference Range Interpretation Comments Alkaline Phosphatase (test code = 6768-6) 44 40-150 [facility] CampusWhite Blood Fjozw6641-98-37 09:45:00* Test Item Value Reference Range Interpretation Comments White Blood Count (test code = 6690-2) 5.86 4.8-10.8 [facility] CampusRed Blood Mowrc1027-77-89 09:45:00* Test Item Value Reference Range Interpretation Comments Red Blood Count (test code = 789-8) 4.30 4.3-5.7 [facility] CampusHemoglobin2019-08-07 09:45:00* Test Item Value Reference Range Interpretation Comments Hemoglobin (test code = 24925-0) 13.2 14.0-18.0 L [facility] CampusHematocrit2019-08-07 09:45:00* Test Item Value Reference Range Interpretation Comments Hematocrit (test code = 4544-3) 39.0 38.2-49.6 [facility] CampusMean Corpuscular Ftvkyq8124-12-85 09:45:00* Test Item Value Reference Range Interpretation Comments Mean Corpuscular Volume (test code = 787-2) 90.7 81-99 [facility] CampusMean Corpuscular Ydylxaurzc0545-36-40 09:45:00* Test Item Value Reference Range Interpretation Comments Mean Corpuscular Hemoglobin (test code = 785-6) 30.7 28-32 [facility] Concent 2018-09-27 09:45:00* Test Item Value Reference Range Interpretation Comments Mean Corpuscular Hemoglobin Concent (test code = 786-4) 33.8 31-35 [facility] CampusRed Cell Distribution Gvlxq3011-87-29 09:45:00* Test Item Value Reference Range Interpretation Comments Red Cell Distribution Width (test code = 32748-3) 13.2 11.7 -14.4 [facility] CampusPlatelet Keacy9295-29-79 09:45:00* Test Item Value Reference Range Interpretation Comments Platelet Count (test code = 777-3) 115 140-360 L [facility] CampusNeutrophils (%) (Auto)2018-09-27 09:45:00 * Test Item Value Reference Range Interpretation Comments Neutrophils (%) (Auto) (test code = 81203-2) 65.1 38.7-80.0 [facility] CampusLymphocytes (%) (Auto)2018-09-27 09:45:00 * Test Item Value Reference Range Interpretation Comments Lymphocytes (%) (Auto) (test code = 736-9) 18.6 18.0-39.1 [facility] CampusMonocytes (%) (Auto)2018-09-27 09:45:00* Test Item Value Reference Range Interpretation Comments Monocytes (%) (Auto) (test code = 5905-5) 11.4 4.4-11.3 H [facility] CampusEosinophils (%) (Auto)2018-09-27 09:45:00 * Test Item Value Reference Range Interpretation Comments Eosinophils (%) (Auto) (test code = 713-8) 4.1 0.0-6.0 [facility] CampusBasophils (%) (Auto)2018-09-27 09:45:00* Test Item Value Reference Range Interpretation Comments Basophils (%) (Auto) (test code = 706-2) 0.3 0.0-1.0 [facility] CampusIM GRANULOCYTES %2018-09-27 09:45:00* Test Item Value Reference Range Interpretation Comments IM GRANULOCYTES % (test code = IM GRANULOCYTES %) 0.5 0.0- 1.0 [facility] CampusNeutrophils # (Auto)2018-09-27 09:45:00* Test Item Value Reference Range Interpretation Comments Neutrophils # (Auto) (test code = 751-8) 3.8 2.1-6.9 [facility] CampusLymphocytes # (Auto)2018-09-27 09:45:00* Test Item Value Reference Range Interpretation Comments Lymphocytes # (Auto) (test code = 92109-3) 1.1 1.0-3.2 [facility] CampusMonocytes # (Auto)2018-09-27 09:45:00* Test Item Value Reference Range Interpretation Comments Monocytes # (Auto) (test code = 742-7) 0.7 0.2-0.8 [facility] CampusEosinophils # (Auto)2018-09-27 09:45:00* Test Item Value Reference Range Interpretation Comments Eosinophils # (Auto) (test code = 711-2) 0.2 0.0-0.4 [facility] CampusBasophils # (Auto)2018-09-27 09:45:00* Test Item Value Reference Range Interpretation Comments Basophils # (Auto) (test code = 704-7) 0.0 0.0-0.1 [facility] CampusAbsolute Immature Granulocyte (auto 2018-09-27 09:45:00* Test Item Value Reference Range Interpretation Comments Absolute Immature Granulocyte (auto (yuliana t code = Absolute Immature Granulocyte (auto) 0.03 0-0.1 [facility] CampusUrine Rnvlw7476-30-64 09:44:00* Test Item Value Reference Range Interpretation Comments Urine Color (test code = 5778-6) YELLOW YELLOW [facility] CampusUrine Mdjdflh3320-81-59 09:44:00* Test Item Value Reference Range Interpretation Comments Urine Clarity (test code = 68637-7) SL CLOUDY CLEAR H [facility] CampusUrine Specific Xaikoxu0091-90-19 09:44:00 * Test Item Value Reference Range Interpretation Comments Urine Specific Ephraim (test code = 5811-5) 1.020 1.010-1.02 5 [facility] CampusUrine [id number] 09:44:00* Test Item Value Reference Range Interpretation Comments Urine pH (test code = 29302-6) 6.5 5-7 [facility] CampusUrine Leukocyte Sjtkobad4391-60-89 09:44:00* Test Item Value Reference Range Interpretation Comments Urine Leukocyte Esterase (test code = 27460-6) NEGATIVE NEGATIV E [facility] CampusUrine Hegzrif0173-47-94 09:44:00* Test Item Value Reference Range Interpretation Comments Urine Nitrite (test code = 17969-3) NEGATIVE NEGATIVE [facility] CampusUrine Zfwwxhq1683-77-50 09:44:00* Test Item Value Reference Range Interpretation Comments Urine Protein (test code = 47107-5) NEGATIVE NEGATIVE [facility] CampusUrine Glucose (UA)2018-09-27 09:44:00* Test Item Value Reference Range Interpretation Comments Urine Glucose (UA) (test code = 00766-4) NEGATIVE NEGATIVE [facility] CampusUrine Tnekzis4190-28-47 09:44:00* Test Item Value Reference Range Interpretation Comments Urine Ketones (test code = 37715-1) NEGATIVE NEGATIVE [facility] CampusUrine Myceytpwlluc8723-47-60 09:44:00* Test Item Value Reference Range Interpretation Comments Urine Urobilinogen (test code = 11158-1) 0.2 0.2-1 [facility] CampusUrine Bpfykqtvg1618-17-23 09:44:00* Test Item Value Reference Range Interpretation Comments Urine Bilirubin (test code = 1977-8) NEGATIVE NEGATIVE [facility] CampusUrine Jpccp1558-65-12 09:44:00* Test Item Value Reference Range Interpretation Comments Urine Blood (test code = 23860-8) MODERATE NEGATIVE [facility] CampusCHEST 2 PHVAH7942-82-87 13:24:00 [facility] [address] [place] [address] Patient Name: ARIAN BLANCAS MR #: [id number] : 1935 Age/Sex: 83/M Req #: [id number] Adm Physician: Ordered by: REGINA BENAVIDEZ MD Report #: [id number] Location: ER Room/Bed: Procedure: [id number] DX /CHEST 2 VIEWS Exam Date: 09/26/18 [...] COPY TO: REGINA BENAVIDEZ MD Creatine Kinase [id number] 12:42:00* Test Item Value Reference Range Interpretation Comments Creatine Kinase MB (test code = 20368-7) 2.00 0-5.0 [facility] [id number] 12:42:00* Test Item Value Reference Range Interpretation Comments Troponin I (test code = EGK1095) < 0.001 0-0.300 [facility] CampusCreatine Kinase [id number] 12:42:00* Test Item Value Reference Range Interpretation Comments Creatine Kinase MB (test code = 51977-1) 2.00 0-5.0 [facility] CampusTrformerly [facility]isn [id number] 12:42:00* Test Item Value Reference Range Interpretation Comments Troponin I (test code = GLD2119) < 0.001 0-0.300 [facility] CampusInfluenza Virus Types A,B Antigen 2018-09-26 12:40:00* Test Item Value Reference Range Interpretation Comments Influenza Virus Types A,B Antigen (test code = 21849-0) NEGATIVE NEGATIVE [facility] CampusInfluenza Virus Types A,B Antigen 2018-09-26 12:40:00* Test Item Value Reference Range Interpretation Comments Influenza Virus Types A,B Antigen (test code = 23254-2) NEGATIVE NEGATIVE [facility] CampusInfluenza Virus Types A,B Antigen 2018-09-26 12:40:00* Test Item Value Reference Range Interpretation Comments Influenza Virus Types A,B Antigen (test code = 86087-7) NEGATIVE NEGATIVE [facility]odium Yztvb3766-80-17 12:31:00* Test Item Value Reference Range Interpretation Comments Sodium Level (test code = 2951-2) 140 136-145 [facility] CampusPotassium Gxgrf1529-31-65 12:31:00* Test Item Value Reference Range Interpretation Comments Potassium Level (test code = 2823-3) 3.7 3.5-5.1 [facility] CampusChloride Seups2380-17-53 12:31:00* Test Item Value Reference Range Interpretation Comments Chloride Level (test code = 2075-0) 107 98-107 [facility] CampusCarbon Dioxide Prexx1425-59-39 12:31:00* Test Item Value Reference Range Interpretation Comments Carbon Dioxide Level (test code = 2028-9) 22 22-29 [facility] CampusAnion Vqh5869-16-83 12:31:00* Test Item Value Reference Range Interpretation Comments Anion Gap (test code = 96051-3) 14.7 8-16 [facility] CampusBlood Urea Ibejmele3535-55-63 12:31:00* Test Item Value Reference Range Interpretation Comments Blood Urea Nitrogen (test code = 3094-0) 10 7-26 [facility] CampusCreatinine2019-08-06 12:31:00* Test Item Value Reference Range Interpretation Comments Creatinine (test code = 2160-0) 0.78 0.72-1.25 [facility] CampusBUN/Creatinine Aqbgl1877-39-07 12:31:00* Test Item Value Reference Range Interpretation Comments BUN/Creatinine Ratio (test code = 3097-3) 13 6-25 [facility] CampusEstimat Glomerular Filtration Rate 2018-09-26 12:31:00* Test Item Value Reference Range Interpretation Comments Estimat Glomerular Filtration Rate (test code = 562907089) > 60 >60 Ranges were taken from the National Kidney Disease Education Program and the [facility] literature.Reference ranges:60 or greater: Jevqvm14-14 ( for 3 consecutive months): Chronic kidney disease 15 or less: Kidney failureCHI Texoma Medical CenterGlucose Cnums0008-23-18 12:31:00* Test Item Value Reference Range Interpretation Comments Glucose Level (test code = JLM0484) 87 74-118 [facility] CampusCalcium Encbu2171-39-33 12:31:00* Test Item Value Reference Range Interpretation Comments Calcium Level (test code = 62373-0) 9.2 8.4-10.2 [facility] CampusTotal Fpwpxmagz2379-62-85 12:31:00* Test Item Value Reference Range Interpretation Comments Total Bilirubin (test code = 1975-2) 1.3 0.2-1.2 H [facility] CampusAspartate Amino Transf (AST/SGOT) 2018-09-26 12:31:00* Test Item Value Reference Range Interpretation Comments Aspartate Amino Transf (AST/SGOT) (test code = Aspartate Amino Transf (AST/SGOT)) 34 5-34 [facility] CampusAlanine Aminotransferase (ALT/SGPT) 2018-09-26 12:31:00* Test Item Value Reference Range Interpretation Comments Alanine Aminotransferase (ALT/SGPT) (test code = 1742-6) 24 0-55 [facility] CampusTotal Gnkpnjh2409-86-91 12:31:00* Test Item Value Reference Range Interpretation Comments Total Protein (test code = 2885-2) 7.3 6.5-8.1 [facility] CampusAlbumin2019-08-06 12:31:00* Test Item Value Reference Range Interpretation Comments Albumin (test code = 1751-7) 3.8 3.5-5.0 [facility] CampusGlobulin2019-08-06 12:31:00* Test Item Value Reference Range Interpretation Comments Globulin (test code = 11268-3) 3.5 2.3-3.5 [facility] CampusAlbumin/Globulin Khvgi8263-36-41 12:31:00 * Test Item Value Reference Range Interpretation Comments Albumin/Globulin Ratio (test code = 1759-0) 1.1 0.8-2.0 [facility] CampusAlkaline Psplwouxidj5039-01-76 12:31:00* Test Item Value Reference Range Interpretation Comments Alkaline Phosphatase (test code = 6768-6) 50 40-150 [facility] CampusCreatine Axbgod6006-43-01 12:31:00* Test Item Value Reference Range Interpretation Comments Creatine Kinase (test code = 2157-6) 148 30-200 [facility] CampusAmylase Wyjus5838-76-90 12:31:00* Test Item Value Reference Range Interpretation Comments Amylase Level (test code = 1798-8) 57 25-125 [facility] CampusLipase2019-08-06 12:31:00* Test Item Value Reference Range Interpretation Comments Lipase (test code = 3040-3) 27 8-78 [facility] CampusCreatine Ilxsvc7815-55-77 12:31:00* Test Item Value Reference Range Interpretation Comments Creatine Kinase (test code = 2157-6) 148 30-200 [facility] CampusAmylase Ckggc7381-11-14 12:31:00* Test Item Value Reference Range Interpretation Comments Amylase Level (test code = 1798-8) 57 25-125 [facility] CampusLipase2019-08-06 12:31:00* Test Item Value Reference Range Interpretation Comments Lipase (test code = 3040-3) 27 8-78 [facility] CampusAmylase Avsqe0622-57-73 12:31:00* Test Item Value Reference Range Interpretation Comments Amylase Level (test code = 1798-8) 57 25-125 [facility] CampusLipase2019-08-06 12:31:00* Test Item Value Reference Range Interpretation Comments Lipase (test code = 3040-3) 27 8-78 [facility] CampusUrine TKW7496-10-72 12:30:00* Test Item Value Reference Range Interpretation Comments Urine WBC (test code = 5821-4) 6-10 0-5 H [facility] CampusUrine WHF2111-64-44 12:30:00* Test Item Value Reference Range Interpretation Comments Urine RBC (test code = 27316-3) 0-5 0-5 [facility] CampusUrine Dvwmcvvh7415-91-28 12:30:00* Test Item Value Reference Range Interpretation Comments Urine Bacteria (test code = 03219-0) MANY NONE H [facility] CampusUrine Epithelial Bgcoj5297-77-08 12:30:00 * Test Item Value Reference Range Interpretation Comments Urine Epithelial Cells (test code = 29251-1) MODERATE NONE [facility] Amorphous Qstxzehl2201-39-91 12:30:00* Test Item Value Reference Range Interpretation Comments Urine Amorphous Sediment (test code = 8246-1) MODERATE FEW H [facility] Amorphous Cpbnepde5022-63-40 12:30:00* Test Item Value Reference Range Interpretation Comments Urine Amorphous Sediment (test code = 8246-1) MODERATE FEW H [facility] CampusUrine Amorphous Jltlnocx6909-18-13 12:30:00* Test Item Value Reference Range Interpretation Comments Urine Amorphous Sediment (test code = 8246-1) MODERATE FEW H [facility] CampusProthrombin Yjct6036-59-95 12:16:00* Test Item Value Reference Range Interpretation Comments Prothrombin Time (test code = 5902-2) 14.7 11.9-14.5 H [facility] CampusProthromb Time International Ratio 2018-09-26 12:16:00* Test Item Value Reference Range Interpretation Comments Prothromb Time International Ratio (test code = 6301-6) 1.10 Oral Anticoagulant Therapy INR Values:1. Low Intensity Therapy 1.5 - 2.02 . Moderate Intensity Therapy 2.0 - 3.03. High Intensity Therapy(1) 2.5 - 3. 54. High Intensity Therapy(2) 3.0 - 4.05. Panic Value INR > 5.0 [facility] CampusActivated Partial Thromboplast Time 2018-09-26 12:16:00* Test Item Value Reference Range Interpretation Comments Activated Partial Thromboplast Time (test code = 45061-2) 35.6 23.8-35.5 H [facility] CampusProthrombin Jugu9755-64-57 12:16:00* Test Item Value Reference Range Interpretation Comments Prothrombin Time (test code = 5902-2) 14.7 11.9-14.5 H [facility] CampusProthromb Time International Ratio 2018-09-26 12:16:00* Test Item Value Reference Range Interpretation Comments Prothromb Time International Ratio (test code = 6301-6) 1.10 Oral Anticoagulant Therapy INR Values:1. Low Intensity Therapy 1.5 - 2.02 . Moderate Intensity Therapy 2.0 - 3.03. High Intensity Therapy(1) 2.5 - 3. 54. High Intensity Therapy(2) 3.0 - 4.05. Panic Value INR > 5.0 [facility] CampusActivated Partial Thromboplast Time 2018-09-26 12:16:00* Test Item Value Reference Range Interpretation Comments Activated Partial Thromboplast Time (test code = 60369-5) 35.6 23.8-35.5 H [facility] CampusWhite Blood Gpqlx5779-55-98 12:09:00* Test Item Value Reference Range Interpretation Comments White Blood Count (test code = 6690-2) 4.40 4.8-10.8 L [facility] CampusRed Blood Uqksj8079-55-73 12:09:00* Test Item Value Reference Range Interpretation Comments Red Blood Count (test code = 789-8) 4.54 4.3-5.7 [facility] CampusHemoglobin2019-08-06 12:09:00* Test Item Value Reference Range Interpretation Comments Hemoglobin (test code = 26786-5) 14.0 14.0-18.0 [facility] CampusHematocrit2019-08-06 12:09:00* Test Item Value Reference Range Interpretation Comments Hematocrit (test code = 4544-3) 41.2 38.2-49.6 [facility] CampusMean Corpuscular Gkrzqc8481-94-42 12:09:00* Test Item Value Reference Range Interpretation Comments Mean Corpuscular Volume (test code = 787-2) 90.7 81-99 [facility] CampusMean Corpuscular Moadunuikf5611-23-05 12:09:00* Test Item Value Reference Range Interpretation Comments Mean Corpuscular Hemoglobin (test code = 785-6) 30.8 28-32 [facility] CampusMean Corpuscular Hemoglobin Concent 2018-09-26 12:09:00* Test Item Value Reference Range Interpretation Comments Mean Corpuscular Hemoglobin Concent (test code = 786-4) 34.0 31-35 [facility] CampusRed Cell Distribution Hijsf9535-75-93 12:09:00* Test Item Value Reference Range Interpretation Comments Red Cell Distribution Width (test code = 80592-0) 13.2 11.7 -14.4 [facility] CampusPlatelet Hspyz3211-36-59 12:09:00* Test Item Value Reference Range Interpretation Comments Platelet Count (test code = 777-3) 114 140-360 L [facility] CampusNeutrophils (%) (Auto)2018-09-26 12:09:00 * Test Item Value Reference Range Interpretation Comments Neutrophils (%) (Auto) (test code = 84119-3) 72.5 38.7-80.0 [facility] CampusLymphocytes (%) (Auto)2018-09-26 12:09:00 * Test Item Value Reference Range Interpretation Comments Lymphocytes (%) (Auto) (test code = 736-9) 16.6 18.0-39.1 L [facility] CampusMonocytes (%) (Auto)2018-09-26 12:09:00* Test Item Value Reference Range Interpretation Comments Monocytes (%) (Auto) (test code = 5905-5) 8.0 4.4-11.3 [facility] CampusEosinophils (%) (Auto)2018-09-26 12:09:00 * Test Item Value Reference Range Interpretation Comments Eosinophils (%) (Auto) (test code = 713-8) 2.5 0.0-6.0 [facility] CampusBasophils (%) (Auto)2018-09-26 12:09:00* Test Item Value Reference Range Interpretation Comments Basophils (%) (Auto) (test code = 706-2) 0.2 0.0-1.0 [facility] CampusIM GRANULOCYTES %2018-09-26 12:09:00* Test Item Value Reference Range Interpretation Comments IM GRANULOCYTES % (test code = IM GRANULOCYTES %) 0.2 0.0- 1.0 [facility] CampusNeutrophils # (Auto)2018-09-26 12:09:00* Test Item Value Reference Range Interpretation Comments Neutrophils # (Auto) (test code = 751-8) 3.2 2.1-6.9 [facility] CampusLymphocytes # (Auto)2018-09-26 12:09:00* Test Item Value Reference Range Interpretation Comments Lymphocytes # (Auto) (test code = 01029-7) 0.7 1.0-3.2 L [facility] CampusMonocytes # (Auto)2018-09-26 12:09:00* Test Item Value Reference Range Interpretation Comments Monocytes # (Auto) (test code = 742-7) 0.4 0.2-0.8 [facility] CampusEosinophils # (Auto)2018-09-26 12:09:00* Test Item Value Reference Range Interpretation Comments Eosinophils # (Auto) (test code = 711-2) 0.1 0.0-0.4 [facility] CampusBasophils # (Auto)2018-09-26 12:09:00* Test Item Value Reference Range Interpretation Comments Basophils # (Auto) (test code = 704-7) 0.0 0.0-0.1 [facility] CampusAbsolute Immature Granulocyte (auto 2018-09-26 12:09:00* Test Item Value Reference Range Interpretation Comments Absolute Immature Granulocyte (auto (yuliana t code = Absolute Immature Granulocyte (auto) 0.01 0-0.1 [facility] CampusUrine Wqruq1635-31-69 12:07:00* Test Item Value Reference Range Interpretation Comments Urine Color (test code = 5778-6) YELLOW YELLOW [facility] CampusUrine Thtnyxv0586-06-49 12:07:00* Test Item Value Reference Range Interpretation Comments Urine Clarity (test code = 33205-1) CLEAR CLEAR [facility] CampusUrine Specific Zxqadyb8065-85-36 12:07:00 * Test Item Value Reference Range Interpretation Comments Urine Specific Ephraim (test code = 5811-5) 1.010 1.010-1.02 5 [facility] CampusUrine dF2858-76-80 12:07:00* Test Item Value Reference Range Interpretation Comments Urine pH (test code = 08455-9) 7.5 5-7 [facility] Leukocyte Efvhrpsg0014-44-03 12:07:00* Test Item Value Reference Range Interpretation Comments Urine Leukocyte Esterase (test code = 22680-9) NEGATIVE NEGATIV E [facility] CampusUrine Kzhtxby8293-84-66 12:07:00* Test Item Value Reference Range Interpretation Comments Urine Nitrite (test code = 02500-8) NEGATIVE NEGATIVE [facility] CampusUrine Meruvmv7881-97-89 12:07:00* Test Item Value Reference Range Interpretation Comments Urine Protein (test code = 31091-3) NEGATIVE NEGATIVE [facility] CampusUrine Glucose (UA)2018-09-26 12:07:00* Test Item Value Reference Range Interpretation Comments Urine Glucose (UA) (test code = 55223-9) NEGATIVE NEGATIVE [facility] CampusUrine Mvenhpl4582-05-89 12:07:00* Test Item Value Reference Range Interpretation Comments Urine Ketones (test code = 30848-3) TRACE NEGATIVE H [facility] Ztkvpavlakhz1371-51-01 12:07:00* Test Item Value Reference Range Interpretation Comments Urine Urobilinogen (test code = 83822-2) 0.2 0.2-1 [facility] CampusUrine Cnrlwwwhq6229-88-51 12:07:00* Test Item Value Reference Range Interpretation Comments Urine Bilirubin (test code = 1977-8) NEGATIVE NEGATIVE [facility] CampusUrine Qvuwd7453-45-18 12:07:00* Test Item Value Reference Range Interpretation Comments Urine Blood (test code = 88046-6) TRACE NEGATIVE [facility] Tgwogornb1970-32-50 06:48:00* Test Item Value Reference Range Interpretation Comments Free Thyroxine (test code = 3024-7) 0.90 0.9-1.8 [facility] CampusThyroid Stimulating Hormone (TSH) 2018-01-14 06:48:00* Test Item Value Reference Range Interpretation Comments Thyroid Stimulating Hormone (TSH) (test code = 54351-6) 2.234 0.350-4.940 [facility] Lzebcnrud3832-73-75 06:48:00* Test Item Value Reference Range Interpretation Comments Free Thyroxine (test code = 3024-7) 0.90 0.9-1.8 [facility] CampusThyroid Stimulating Hormone (TSH) 2018-01-14 06:48:00* Test Item Value Reference Range Interpretation Comments Thyroid Stimulating Hormone (TSH) (test code = 32112-4) 2.234 0.350-4.940 [facility] Swoxfxbya1355-13-64 06:48:00* Test Item Value Reference Range Interpretation Comments Free Thyroxine (test code = 3024-7) 0.90 0.9-1.8 [facility] CampusThyroid Stimulating Hormone (TSH) 2018-01-14 06:48:00* Test Item Value Reference Range Interpretation Comments Thyroid Stimulating Hormone (TSH) (test code = 20561-1) 2.234 0.350-4.940 [facility]odium Dzquo5543-16-74 06:27:00* Test Item Value Reference Range Interpretation Comments Sodium Level (test code = 2951-2) 138 136-145 [facility] CampusPotassium Nkudv6181-29-50 06:27:00* Test Item Value Reference Range Interpretation Comments Potassium Level (test code = 2823-3) 3.7 3.5-5.1 [facility] CampusChloride Xhwno9871-82-49 06:27:00* Test Item Value Reference Range Interpretation Comments Chloride Level (test code = 2075-0) 105 98-107 [facility] CampusCarbon Dioxide Uopnf5958-93-14 06:27:00* Test Item Value Reference Range Interpretation Comments Carbon Dioxide Level (test code = 2028-9) 26 22-29 [facility] CampusAnion Lsk4534-08-28 06:27:00* Test Item Value Reference Range Interpretation Comments Anion Gap (test code = 64279-2) 10.7 8-16 [facility] CampusBlood Urea Ltsahvsu5705-24-91 06:27:00* Test Item Value Reference Range Interpretation Comments Blood Urea Nitrogen (test code = 3094-0) 12 7-26 [facility] CampusCreatinine2018-11-24 06:27:00* Test Item Value Reference Range Interpretation Comments Creatinine (test code = 2160-0) 0.74 0.72-1.25 [facility] CampusBUN/Creatinine Jtwqd4840-41-88 06:27:00* Test Item Value Reference Range Interpretation Comments BUN/Creatinine Ratio (test code = 3097-3) 16 6- [facility] CampusEstimat Glomerular Filtration Rate 2018-01-14 06:27:00* Test Item Value Reference Range Interpretation Comments Estimat Glomerular Filtration Rate (test code = 256075621) > 60 >60 Ranges were taken from the National Kidney Disease Education Program and the [facility] Foundation literature.Reference ranges:60 or greater: Wyiddl33-29 ( for 3 consecutive months): Chronic kidney disease 15 or less: Kidney failureNorth [facility] CampusGlucose Nvapx4517-40-49 06:27:00* Test Item Value Reference Range Interpretation Comments Glucose Level (test code = GUV5856) 106 74-118 [facility] CampusCalcium Nbiej9960-89-14 06:27:00* Test Item Value Reference Range Interpretation Comments Calcium Level (test code = 91569-8) 9.4 8.4-10.2 [facility] CampusTriglycerides Vaeuj5493-66-11 06:27:00* Test Item Value Reference Range Interpretation Comments Triglycerides Level (test code = 2571-8) 255 0-149 H [facility] CampusCholesterol Clrty1318-91-14 06:27:00* Test Item Value Reference Range Interpretation Comments Cholesterol Level (test code = 2093-3) 177 0-199 Less than 200 mg/dL Low Suxa037 - 239 mg/dL Borderline Fjdt220 m g/dl and greater High Risk [facility] CampusLDL Hsoerjngwwb3369-97-66 06:27:00* Test Item Value Reference Range Interpretation Comments LDL Cholesterol (test code = 2089-1) 88 60-130 [facility] Lwovpjiemfj2398-81-77 06:27:00* Test Item Value Reference Range Interpretation Comments HDL Cholesterol (test code = 2085-9) 38 40-60 L [facility] CampusCholesterol/HDL Ozfcg1923-66-22 06:27:00 * Test Item Value Reference Range Interpretation Comments Cholesterol/HDL Ratio (test code = 9830-1) 4.7 3.9-4.7 [facility] CampusTriglycerides Omypn6335-65-48 06:27:00* Test Item Value Reference Range Interpretation Comments Triglycerides Level (test code = 2571-8) 255 0-149 H [facility] CampusCholesterol Utdgl5430-41-76 06:27:00* Test Item Value Reference Range Interpretation Comments Cholesterol Level (test code = 2093-3) 177 0-199 Less than 200 mg/dL Low Nwhe460 - 239 mg/dL Borderline Fzuk580 m g/dl and greater High Risk [facility] CampusLDL Gydmnyyroqy1212-28-64 06:27:00* Test Item Value Reference Range Interpretation Comments LDL Cholesterol (test code = 2089-1) 88 60-130 [facility] Ujvgsvdgpsm9745-00-47 06:27:00* Test Item Value Reference Range Interpretation Comments HDL Cholesterol (test code = 2085-9) 38 40-60 L [facility] CampusCholesterol/HDL Onhhl0190-80-79 06:27:00 * Test Item Value Reference Range Interpretation Comments Cholesterol/HDL Ratio (test code = 9830-1) 4.7 3.9-4.7 [facility] CampusTriglycerides Pmvte3098-74-33 06:27:00* Test Item Value Reference Range Interpretation Comments Triglycerides Level (test code = 2571-8) 255 0-149 H [facility] CampusCholesterol Adyxs1591-56-36 06:27:00* Test Item Value Reference Range Interpretation Comments Cholesterol Level (test code = 2093-3) 177 0-199 Less than 200 mg/dL Low Ucse041 - 239 mg/dL Borderline Iixm021 m g/dl and greater High Risk [facility] CampusLDL Zficdcjekpr0972-24-34 06:27:00* Test Item Value Reference Range Interpretation Comments LDL Cholesterol (test code = 2089-1) 88 60-130 [facility] CampusHDL Rrxjpvbxpsf3878-50-08 06:27:00* Test Item Value Reference Range Interpretation Comments HDL Cholesterol (test code = 2085-9) 38 40-60 L [facility] CampusCholesterol/HDL Okufd1994-42-60 06:27:00 * Test Item Value Reference Range Interpretation Comments Cholesterol/HDL Ratio (test code = 9830-1) 4.7 3.9-4.7 [facility] CampusWhite Blood Vncnq7959-62-79 06:07:00* Test Item Value Reference Range Interpretation Comments White Blood Count (test code = 6690-2) 6.88 4.8-10.8 [facility] CampusRed Blood Sjsxh7523-11-85 06:07:00* Test Item Value Reference Range Interpretation Comments Red Blood Count (test code = 789-8) 4.64 4.3-5.7 [facility] CampusHemoglobin2018-11-24 06:07:00* Test Item Value Reference Range Interpretation Comments Hemoglobin (test code = 86134-6) 14.4 14.0-18.0 [facility] CampusHematocrit2018-11-24 06:07:00* Test Item Value Reference Range Interpretation Comments Hematocrit (test code = 4544-3) 41.6 38.2-49.6 [facility] CampusMean Corpuscular Vfscck6208-46-28 06:07:00* Test Item Value Reference Range Interpretation Comments Mean Corpuscular Volume (test code = 787-2) 89.7 81-99 [facility] CampusMean Corpuscular Bzrazxbuue8048-64-23 06:07:00* Test Item Value Reference Range Interpretation Comments Mean Corpuscular Hemoglobin (test code = 785-6) 31.0 28-32 [facility] CampusMean Corpuscular Hemoglobin Concent 2018-01-14 06:07:00* Test Item Value Reference Range Interpretation Comments Mean Corpuscular Hemoglobin Concent (test code = 786-4) 34.6 31-35 [facility] CampusRed Cell Distribution Vjjvr4647-81-74 06:07:00* Test Item Value Reference Range Interpretation Comments Red Cell Distribution Width (test code = 83884-1) 13.0 11.7 -14.4 [facility] CampusPlatelet Ulvom9573-88-44 06:07:00* Test Item Value Reference Range Interpretation Comments Platelet Count (test code = 777-3) 112 140-360 L [facility] CampusNeutrophils (%) (Auto)2018-01-14 06:07:00 * Test Item Value Reference Range Interpretation Comments Neutrophils (%) (Auto) (test code = 08816-6) 62.2 38.7-80.0 [facility] CampusLymphocytes (%) (Auto)2018-01-14 06:07:00 * Test Item Value Reference Range Interpretation Comments Lymphocytes (%) (Auto) (test code = 736-9) 23.8 18.0-39.1 [facility] CampusMonocytes (%) (Auto)2018-01-14 06:07:00* Test Item Value Reference Range Interpretation Comments Monocytes (%) (Auto) (test code = 5905-5) 9.3 4.4-11.3 [facility] CampusEosinophils (%) (Auto)2018-01-14 06:07:00 * Test Item Value Reference Range Interpretation Comments Eosinophils (%) (Auto) (test code = 713-8) 3.9 0.0-6.0 [facility] CampusBasophils (%) (Auto)2018-01-14 06:07:00* Test Item Value Reference Range Interpretation Comments Basophils (%) (Auto) (test code = 706-2) 0.4 0.0-1.0 [facility] CampusIM GRANULOCYTES %2018-01-14 06:07:00* Test Item Value Reference Range Interpretation Comments IM GRANULOCYTES % (test code = IM GRANULOCYTES %) 0.4 0.0- 1.0 [facility] CampusNeutrophils # (Auto)2018-01-14 06:07:00* Test Item Value Reference Range Interpretation Comments Neutrophils # (Auto) (test code = 751-8) 4.3 2.1-6.9 [facility] CampusLymphocytes # (Auto)2018-01-14 06:07:00* Test Item Value Reference Range Interpretation Comments Lymphocytes # (Auto) (test code = 49524-8) 1.6 1.0-3.2 [facility] CampusMonocytes # (Auto)2018-01-14 06:07:00* Test Item Value Reference Range Interpretation Comments Monocytes # (Auto) (test code = 742-7) 0.6 0.2-0.8 [facility] CampusEosinophils # (Auto)2018-01-14 06:07:00* Test Item Value Reference Range Interpretation Comments Eosinophils # (Auto) (test code = 711-2) 0.3 0.0-0.4 [facility] CampusBasophils # (Auto)2018-01-14 06:07:00* Test Item Value Reference Range Interpretation Comments Basophils # (Auto) (test code = 704-7) 0.0 0.0-0.1 [facility] CampusAbsolute Immature Granulocyte (auto 2018-01-14 06:07:00* Test Item Value Reference Range Interpretation Comments Absolute Immature Granulocyte (auto (yuliana t code = Absolute Immature Granulocyte (auto) 0.03 0-0.1 [facility] CampusCreatine Kinase ZR6968-04-38 01:36:00* Test Item Value Reference Range Interpretation Comments Creatine Kinase MB (test code = 12844-3) 2.70 0-5.0 [facility] CampusTroponin E4811-99-21 01:36:00* Test Item Value Reference Range Interpretation Comments Troponin I (test code = PYI2134) 0.007 0-0.300 [facility] CampusCreatine Hdglbw4668-80-63 01:19:00* Test Item Value Reference Range Interpretation Comments Creatine Kinase (test code = 2157-6) 201 30-200 H [facility] CampusHemoglobin A1c Wxkulja4208-65-67 16:08:00 * Test Item Value Reference Range Interpretation Comments Hemoglobin A1c Percent (test code = Hemoglobin A1c Percent) 5.1 4.0-7.0 [facility] CampusHemoglobin A1c Owrmhmz6245-23-98 16:08:00 * Test Item Value Reference Range Interpretation Comments Hemoglobin A1c Percent (test code = Hemoglobin A1c Percent) 5.1 4.0-7.0 [facility] CampusHemoglobin A1c Tgvcndq2785-68-31 16:08:00 * Test Item Value Reference Range Interpretation Comments Hemoglobin A1c Percent (test code = Hemoglobin A1c Percent) 5.1 4.0-7.0 [facility] CampusMRA HEAD LL1884-83-06 14:26:00 [place] [address] Patient Name: ARIAN BLANCAS MR #: [id number] : 1935 Age/Sex: 82/M Req #: [id number] Adm Physician: MOHIT ROBLES MD Ordered by: REGINA BENAVIDEZ MD Report #: [id number] Location: MED/SURG Room/Bed: [facility] Procedure: [id number] M RI/MRA HEAD WO Exam Date: Exam [...] will be measured relative to the patent hoh vessel distal to t he stenosis. 15 [...] PM Dictate d By: JOVANNY WATERMAN MD Electronically Signed By: JOVANNY WATERMAN MD on 12/23 05/08 1441 Transcribed By: VIVIANE on 01/13/18 1441 COPY TO: REGINA BENAVIDEZ MD MRA NECK YNY4334-58-72 14:26:00 [place] [address] Patient Name: ARIAN BLANCAS MR #: [id number] : 1935 Age/Sex: 82/M Req #: [id number] Adm Physician: MOHIT ROBLES MD Ordered by: REGINA BENAVIDEZ MD Report #: [id number] Location: MED/SURG Room/Bed: [facility] Procedure: [id number] M RI/MRA NECK WOW Exam Date: Exam Time: REPORT STATUS: Signed MRA NECK WOW, MRA HEAD WO HISTORY: Slurred speech, on balance COMPARISON: Concurrent brain MRI, head CT from earlier today TECHNIQUE: Axial noncontrast 2D cervical , coronal contrast enhanced cervical, and noncontrast axial 3D intracranial ti jq-vf-ytzxfo MRA images were obtained without contrast. Maximum intensity proj ection and coronal/sagittal reformatted images were created. Any cervical car otid stenoses will be measured relative to the patent hoh vessel distal to the stenosis. 15 mL [...] COPY TO: REGINA BENAVIDEZ MD MRI BRAIN [id number] 13:50:00 [place] [id number] [place] [address] Patient Name: ARIAN BLANCAS MR #: [id number] : 1935 Age/Sex: 82/M Req #: [id number] Adm Physician: MOHIT ROBLES MD Ordered by: REGINA BENAVIDEZ MD Report #: [id number] Location: MED/SURG Room/Bed: [facility] Procedure: [id number] M RI/MRI BRAIN WO Exam Date: Exam [...] Signed by: Dr. Jovanny Waterman M.D. on 2:04 PM Dictated By: JOVANNY WATERMAN MD 03 Transcribed By: VIVIANE on 01/13/181403 COPY TO: REGINA BENAVIDEZ MD CHEST SINGLE (PORTABLE)2018-01-13 12:01:00 [place] [address] Patient Name: ARIAN BLANCAS MR #: [id number] : 1935 Age/Sex: 82/M Req #: [id number] Adm Physician: MOHIT ROBLES MD Ordered by: REGINA BENAVIDEZ MD Report #: [id number] Location: [facility] Room/Bed: [place] [address] Procedure: [id number] D X/CHEST SINGLE (PORTABLE) Exam Date: 01/13/18 [...] 1210 COPY TO: REGINA BENAVIDEZ MD Urine VWJ3834-05-60 11:16:00* Test Item Value Reference Range Interpretation Comments Urine WBC (test code = 5821-4) 0-5 0-5 [facility] CampusUrine YVN9289-96-99 11:16:00* Test Item Value Reference Range Interpretation Comments Urine RBC (test code = 56755-4) 6-10 0-5 H [facility] CampusUrine Btpcunls3034-96-34 11:16:00* Test Item Value Reference Range Interpretation Comments Urine Bacteria (test code = 72707-1) FEW NONE [facility] CampusUrine Epithelial Inifx7397-68-66 11:16:00 * Test Item Value Reference Range Interpretation Comments Urine Epithelial Cells (test code = 42982-6) FEW NONE [facility] CampusUrine Yyyie7871-58-18 11:13:00* Test Item Value Reference Range Interpretation Comments Urine Color (test code = 5778-6) YELLOW YELLOW [facility] CampusUrine Kliljfg0971-52-88 11:13:00* Test Item Value Reference Range Interpretation Comments Urine Clarity (test code = 11239-3) HAZY CLEAR [facility] CampusUrine Specific Vgqvoji3511-26-31 11:13:00 * Test Item Value Reference Range Interpretation Comments Urine Specific Ephraim (test code = 5811-5) 1.005 1.010-1.02 5 L [facility] CampusUrine oL0546-71-47 11:13:00* Test Item Value Reference Range Interpretation Comments Urine pH (test code = 63560-3) 6 5-7 [facility] CampusUrine Leukocyte Pjcwzegb6775-53-68 11:13:00* Test Item Value Reference Range Interpretation Comments Urine Leukocyte Esterase (test code = 5799-2) NEGATIVE NEGATIVE [facility] CampusUrine Smpzwgf3260-96-70 11:13:00* Test Item Value Reference Range Interpretation Comments Urine Nitrite (test code = 58096-4) NEGATIVE NEGATIVE [facility] CampusUrine Ylbkfxn9505-27-69 11:13:00* Test Item Value Reference Range Interpretation Comments Urine Protein (test code = 5804-0) NEGATIVE NEGATIVE [facility] CampusUrine Glucose (UA)2018-01-13 11:13:00* Test Item Value Reference Range Interpretation Comments Urine Glucose (UA) (test code = 2349-9) NEGATIVE NEGATIVE [facility] CampusUrine Hmionzi5176-80-17 11:13:00* Test Item Value Reference Range Interpretation Comments Urine Ketones (test code = 51219-5) NEGATIVE NEGATIVE [facility] CampusUrine Fxpzccunpfvi4094-82-27 11:13:00* Test Item Value Reference Range Interpretation Comments Urine Urobilinogen (test code = 61384-8) 0.2 0.2-1 [facility] CampusUrine Anubghivq2087-50-67 11:13:00* Test Item Value Reference Range Interpretation Comments Urine Bilirubin (test code = 1978-6) NEGATIVE NEGATIVE [facility] CampusUrine Dsluo3584-49-80 11:13:00* Test Item Value Reference Range Interpretation Comments Urine Blood (test code = 57123-9) 1+ NEGATIVE H [facility] CampusTotal Rctmjpdhp1859-85-06 10:52:00* Test Item Value Reference Range Interpretation Comments Total Bilirubin (test code = 1975-2) 0.8 0.2-1.2 [facility] CampusAspartate Amino Transf (AST/SGOT) 2018-01-13 10:52:00* Test Item Value Reference Range Interpretation Comments Aspartate Amino Transf (AST/SGOT) (test code = Aspartate Amino Transf (AST/SGOT)) 34 5-34 [facility] CampusAlanine Aminotransferase (ALT/SGPT) 2018-01-13 10:52:00* Test Item Value Reference Range Interpretation Comments Alanine Aminotransferase (ALT/SGPT) (test code = 1742-6) 24 0-55 [facility] CampusTotal Tafjwda9413-53-95 10:52:00* Test Item Value Reference Range Interpretation Comments Total Protein (test code = 2885-2) 7.6 6.5-8.1 [facility] CampusAlbumin2018-11-23 10:52:00* Test Item Value Reference Range Interpretation Comments Albumin (test code = 1751-7) 4.0 3.5-5.0 [facility] CampusGlobulin2018-11-23 10:52:00* Test Item Value Reference Range Interpretation Comments Globulin (test code = 94601-2) 3.6 2.3-3.5 H [facility] CampusAlbumin/Globulin Xarvy8276-11-74 10:52:00 * Test Item Value Reference Range Interpretation Comments Albumin/Globulin Ratio (test code = 1759-0) 1.1 0.8-2.0 [facility] CampusAlkaline Cfmrjckmpdw7573-77-67 10:52:00* Test Item Value Reference Range Interpretation Comments Alkaline Phosphatase (test code = 6768-6) 54 40-150 [facility] CampusProthrombin Bogm5201-01-14 10:41:00* Test Item Value Reference Range Interpretation Comments Prothrombin Time (test code = 5902-2) 14.1 11.9-14.5 [facility] CampusProthromb Time International Ratio 2018-01-13 10:41:00* Test Item Value Reference Range Interpretation Comments Prothromb Time International Ratio (test code = 6301-6) 1.00 Oral Anticoagulant Therapy INR Values:1. Low Intensity Therapy 1.5 - 2.02 . Moderate Intensity Therapy 2.0 - 3.03. High Intensity Therapy(1) 2.5 - 3. 54. High Intensity Therapy(2) 3.0 - 4.05. Panic Value INR > 5.0 [facility] CampusActivated Partial Thromboplast Time 2018-01-13 10:41:00* Test Item Value Reference Range Interpretation Comments Activated Partial Thromboplast Time (test code = 24644-5) 33.8 23.8-35.5 [facility] CampusCT BRAIN KI9679-26-28 10:08:00 [facility] [address] [place] [address] Patient Name: ARIAN BLANCAS MR #: [id number] : 1935 Age/Sex: 82/M Req #: [id number] Adm Physician: Ordered by: REGINA BENAVIDEZ MD Report #: [id number] Location: ER Room/Bed: Procedure: [id number] CT /CT BRAIN WO Exam Date: Exam Time: REPORT STATUS: Signed CT BRAIN WO HISTORY: Slurred speech, gait abnormality COMPARISON: None. TECHNIQUE: Non contrast axial scans were obtained from skull base to the vertex. Coronal and sagittal reconstructions obtained from the axial data. One or more of the [facility] dose reduction techniques were used: Automated exposure [...] MD HIP RIGHT 2-3 VW (+/- PELVIS) [place] [address] Patient Name: ARIAN BLANCAS MR #: [id number] : 1935 Age/Sex: 82/M Req #: [id number] Adm Physician: Ordered by: BOGDAN SUTTON [employer] Report #: [id number] Location: ER Room/Bed: Procedure: [id number] DX/HIP RIGHT 2-3 VW (+/- P NOHEMI) [...] at 11:15 Dictated By: GIANNI MALDONADO MD 14 Transcribed By: HUNTER on 04/19/171114 COPY TO: BOGDAN SUTTON NP CERVICAL SPINE 4 OR 5 VIEWS [place] [address] Patient Name: ARIAN BLANCAS MR #: [id number] : 1935 Age/Sex: 81/M Req #: [id number] Adm Physician: Ordered by: DEIDRE MERCADO NP Report #: [id number] Location: ER Room/Bed: Procedure: [id number] DX/CERVICAL SPINE 4 OR 5 VIEWS Exam [...] TO: DEIDRE MERCADO NP SHOULDER LEFT COMPLETE [place] [address] Patient Name: ARIAN BLANCAS MR #: [id number] : 1935 Age/Sex: 81/M Req #: [id number] Adm Physicia n: Ordered by: DEIDRE MERCADO [employer]ER Report #: [id number] Location: [facility]/Bed: Procedure: [id number] DX/SHOULDER LEFT COMPLET E Exam Date: 02/25/17 [...]
== END 2019-10-10 16:01 | disposition home or self-care (01) ==
LOC: ER 14:35
DX: R53.1 Weakness (principal); I10 Essential (primary) hypertension; E78.5 Hyperlipidemia, unspecified; K21.9 Gastro-esophageal reflux disease without esophagitis; Z86.73 Personal history of transient ischemic attack (TIA), and cerebral infarction without residual deficits
CPT/HCPCS: 70450; 99283

== ENCOUNTER 2020-02-06 14:34 | Emergency (ER) | payer MEDICARE ==
[~2020-02-06] VITALS: Ht 167.6 cm; Wt 71.7 kg
[2020-02-06] MEDS ORDERED: LIDOCAINE 4% PATCH TP ONE (15:45)
== END 2020-02-06 16:20 | disposition home or self-care (01) ==
LOC: ER 14:50
DX: M25.561 Pain in right knee (principal); S80.01XA Contusion of right knee, initial encounter; W01.0XXA Fall on same level from slipping, tripping and stumbling without subsequent striking against object, initial encounter; E78.5 Hyperlipidemia, unspecified; I10 Essential (primary) hypertension; K21.9 Gastro-esophageal reflux disease without esophagitis
CPT/HCPCS: 99284

== ENCOUNTER 2021-08-19 11:57 | Emergency (ER) | payer MEDICARE ==
[~2021-08-19] VITALS: Ht 167.6 cm; Wt 71.7 kg
[2021-08-19] MEDS ORDERED: NAPROXEN 250 MG TAB PO ONE (14:30)
== END 2021-08-19 15:11 | disposition home or self-care (01) ==
LOC: ER 13:46
DX: M17.11 Unilateral primary osteoarthritis, right knee (principal)
CPT/HCPCS: 99283

== ENCOUNTER 2024-10-31 13:08 | Emergency (ER) | payer MEDICARE ==
[~2024-10-31] VITALS: Ht 167.6 cm; Wt 71.7 kg
[~2024-10-31 13:08] MED LIST changes: +ULTRAM 50MG50 MG PO
[2024-10-31 13:18] VITALS: PULSE 64; RESP 17; TEMP 98.2; O2SAT 99
== END 2024-10-31 15:00 | disposition home or self-care (01) ==
LOC: ER 13:10
DX: R53.1 Weakness (principal); M79.652 Pain in left thigh; M79.651 Pain in right thigh; X58.XXXA Exposure to other specified factors, initial encounter; Y92.89 Other specified places as the place of occurrence of the external cause; I10 Essential (primary) hypertension; E78.5 Hyperlipidemia, unspecified; K21.9 Gastro-esophageal reflux disease without esophagitis; Z86.73 Personal history of transient ischemic attack (TIA), and cerebral infarction without residual deficits
CPT/HCPCS: 99282